=== PATIENT | male | born 1950 | race American Indian/Alaskan Native ===

== ENCOUNTER 2019-02-14 08:10 | Inpatient (IN) | payer MEDICARE, OTHER ==
[~2019-02-14] VITALS: Ht 165.1 cm; Wt 132.9 kg
[~2019-02-14 08:10] MED LIST: ALLO300 PO; AMLO5; AMLO5 PO; ASPI325; ASPI325 PO; Benicar40 MG; Bupropion Xl150 MG PO; CILO100 PO; FLUR100; GABA100 PO; GLIM4; GLIM4 PO; HALO.05TC; HUMIRA; HYDACE7.5 PO; HYDSUL200; HYDSUL200 PO; Humalog100 UNIT/1 SC; Humira20 MG/0.4 SC; Hydrocodone-Ap1 EA20 PO; IBUHYD; INSUGL100V; IRBE150 PO; LEVSOD125; LEVSOD75 PO; LISI5 PO; METF500 PO; METO100; METO100ER PO; METO50 PO; MIRAPEX; OLME20; OLME20 PO; OMEPRAZOLE MAGN20 MG PO; OSEL75CA PO; Oxycodone HCl20 M1 PO; ROPI.25 PO; ROSU10TA; ROSU10TA PO; SILD50TA PO; SPIR25 PO; SPIRONO/HCTZ; Synthroid112 MCG PO; TRAM50 PO; TRIAOIA; VITAMIN D350000 UNIT PO; nuvigil
[2019-02-14 08:36] LABS: BASOPHILS ABSOLUTE AUTO 0.06 K/mm3 (0.00-0.23); BASOPHILS PERCENT AUTO 1 % (0-2); EOSINOPHILS ABSOLUTE AUTO 0.52 K/mm3 (0.00-0.68); EOSINOPHILS PERCENT AUTO 5 % (0-6); Hematocrit 42.5 % (37.0-53.0); Hemoglobin 14.1 g/dL (13.5-17.5); IMMATURE GRAN PERCENT AUTO 1 % (0-1); LYMPHOCYTES ABSOLUTE AUTO 1.16 K/mm3 (0.84-5.20); LYMPHOCYTES PERCENT AUTO 12 % (21-46); MONOCYTES ABSOLUTE AUTO 0.65 K/mm3 (0.16-1.47); MONOCYTES PERCENT AUTO 7 % (4-13); Mean Corpuscular HGB 30.3 pg (26.0-34.0); Mean Corpuscular HGB Conc 33.2 g/dL (31.5-36.5); Mean Corpuscular Volume 91 fL (80-100); Mean Platelet Volume 9.2 fL (9.1-12.4); NEUTROPHILS ABSOLUTE AUTO 7.48 K/mm3 (1.96-9.15); NEUTROPHILS PERCENT AUTO 75 % (41-73); Platelet Count 298 K/mm3 (150-400); RDW Coefficient Variation 13.8 % (11.7-14.2); RDW Standard Deviation 46.5 fL (35.1-46.3); Red Blood Cell Count 4.65 M/mm3 (4.30-5.90); White Blood Cell Count 9.97 K/mm3 (4.00-11.30)
[2019-02-14 08:59] LABS: Alanine Aminotransfer (ALT/SGP 18 U/L (12-78); Albumin, Blood 3.2 g/dL (3.4-5.0); Albumin/Globulin Ratio 0.7 (0.8-1.8); Alk Phos 97 U/L (50-136); Anion Gap 10 mmol/L (6-16); Aspartate Aminotrans (AST/SGOT 6 U/L (12-37); Bilirubin, Total 0.4 mg/dL (0.1-1.0); Blood Urea Nitrogen 10 mg/dL (8-24); CO2, Blood 25 mmol/L (21-32); Calcium, Blood 8.6 mg/dL (8.5-10.1); Chloride, Blood 101 mmol/L (98-108); Creatinine, Blood 0.83 mg/dL (0.60-1.20); Globulin, Blood 4.4 g/dL (2.2-4.0); Glomerular Filtration Rate >60 (60-); Glucose, Blood 290 mg/dL (70-99); Potassium, Blood 3.3 mmol/L (3.5-5.5); Sodium, Blood 136 mmol/L (136-145); Total Protein, Blood 7.6 g/dL (6.4-8.2)
[2019-02-14] MEDS ORDERED: TRULICITY1.5 MG/0.5 SC (11:17)
[2019-02-14] MEDS ORDERED: LEVSOD150 PO (11:17)
[2019-02-14 12:44] LABS: Troponin I 0.04 ng/mL (0.000-0.040)
[2019-02-14 12:46] LABS: Thyroid Stimulating Hormone 2.52 uIU/mL (0.360-4.800)
--- NOTE | 2019-02-14 13:00 | NUR ---
PT RECEIVED FROM ER. ALERT AND ORIENTED X3. C/O 12/17 PAIN, DECLINED NEED FOR MEDS AT THIS TIME. LUNG SOUNDS EXPIRATORY WHEEZES THROUGHOUT, DYSPNEA AT REST AND WITH EXERTION. OXYGEN SATURATIONS 90% ON 3L O2, INCREASED TO 4L VIA NC, SATURATIONS 94%. ABDOMEN IS ROUND, STATES HISTORY OF CONSTIPATION, TENDER ON PALPATION, HYPOACTIVE BOWEL SOUNDS. SINUS TACHYCARDIA WITH PACs RATE 115 PER TELEMETRY.
[2019-02-14] MEDS ORDERED: DICLOFENAC SOD150 ML TOP (13:42)
[2019-02-14] MEDS ORDERED: MIRALAX119 GM PO (13:46)
[2019-02-14] MEDS ORDERED: ALBU2.5V5 NEB (13:56)
[2019-02-14] MEDS ORDERED: FLUT1DIS5 INH (13:56)
[2019-02-14 14:45] LABS: Adenovirus Not Detected (NOT DETECT); Coronavirus 229E Not Detected (NOT DETECT); Coronavirus HKU1 Not Detected (NOT DETECT); Coronavirus NL63 Not Detected (NOT DETECT); Coronavirus OC43 Detected (NOT DETECT); Human Metapneumovirus Detected (NOT DETECT)
[2019-02-14 14:46] LABS: Bordetella pertussis Not Detected (NOT DETECT); Chlamydophila pneumoniae Not Detected (NOT DETECT); Human Rhinovirus/Enterovirus Not Detected (NOT DETECT); Influenza A Not Detected (NOT DETECT); Influenza A/2009-H1 Not Detected (NOT DETECT); Influenza A/H1 Not Detected (NOT DETECT); Influenza A/H3 Not Detected (NOT DETECT); Influenza B Not Detected (NOT DETECT); Mycoplasma pneumoniae Not Detected (NOT DETECT); Parainfluenza Virus 1 Not Detected (NOT DETECT); Parainfluenza Virus 2 Not Detected (NOT DETECT); Parainfluenza Virus 3 Not Detected (NOT DETECT); Parainfluenza Virus 4 Not Detected (NOT DETECT); Respiratory Syncytial Virus Not Detected (NOT DETECT)
--- NOTE | 2019-02-14 16:00 | NUR ---
1400 PT'S BLOOD SUGAR 443, DOCTOR NOTIFIED, ORDERS RECEIVED FOR MEDIUM SLIDING SCALE HUMALOG FLEXPEN. 12 UNITS GIVEN. 1545 BLOOD SUGAR RECHECKED, RESULT 422. ADDITIONAL 10 UNITS HUMALOG GIVEN PER ORDERS. 1650 BLOOD SUGAR CHECKED BEFORE DINNER, RESULT 461. DR. BAILEY NOTIFIED, NEW ORDERS RECEIVED. PT GIVEN DINNER TIME INSULIN WITH AN ADDITIONAL 10 UNITS OF HUMALOG (TOTAL OF 22 UNITS GIVEN). WILL RECHECK BLOOD SUGAR IN 1/5 TO 2 HOURS.
[2019-02-14] MEDS ORDERED: Lantus100 UNIT/1 SC (16:36)
--- NOTE | 2019-02-14 17:00 | NUR ---
PT COMPLAINING OF 10/10 PAIN BETWEEN HIS SHOULDER BLADES. STATES IT IS "JUST LIKE THE TIME I HAD TO GET STENTS IN MY HEART". EKG COMPLETED. 2 NORCO GIVEN FOR PAIN, WHICH HELPED THE PAIN SIGNIFICANTLY. PT DYSPNEIC, SITTING AT SIDE OF BED. STATES SITTING UP FEELS BETTER. AT BEDSIDE. WILL CONTINUE TO MONITOR.
--- NOTE | 2019-02-14 18:45 | NUR ---
SHIFT SUMMARY PT RESTING IN BED / SITTING AT BEDSIDE THIS AFTERNOON. ALERT AND ORIENTED X3. LUNG SOUNDS EXPIRATORY WHEEZES AT TIMES AND DIMINISHED AT TIMES. DYSPNEA ON EXERTION AND AT REST, ON 3-4L OXYGEN VIA NC, SATURATIONS 93-94%. ABDOMEN IS DISTENDED AND TENDER ON PALPATION, HYPOACTIVE BOWEL SOUNDS. STATES HAVING PROBLEMS WITH CONSTIPATION THE LAST FEW WEEKS. PT HAD AN EPISODE OF PAIN BETWEEN THE SHOULDER BLADES WITH DYSPNEA AND SOME ANXIETY. STATES PAIN IS THE SAME WHEN HE HAD HIS HEART ATTACK. EKG COMPLETED. PO NORCO GIVEN FOR PAIN, WHICH HELPED DECREASE HIS PAIN. SINUS TACHYCARDIA WITH PACs RATE 115 ON TELEMETRY. AT BEDSIDE. WILL CONTINUE TO MONITOR.
--- NOTE | 2019-02-14 19:15 | NUR ---
ASSUMED CARE PT. ALERT AND ORIENTED. SITTING UP IN BEDSIDE CHAIR. PT. PALE IN COLOR AND REPORTS PAIN IN BETWEEN SHOULDER BLADES AND TIGHTNESS ACROSS EPIGASTRIC AREA. PT. DISPLAYS SOB WITH MOVEMENT AND SPEAKING IN SHORT SENTENCES. PT. CURRENTLY ON 4LNC. PT REPORTS PAIN AND SOB HAS BEEN ONGING FOR APPROX 3 DAYS. PT ABD SOFT, TENDER TO PALPATION AND REPORTS CONSTIPATION HOWEVER IS PASSING FLATUS. PT. HAS URINAL AT BEDSIDE, INSTRUCTED OF THE NEED FOR URINE SAMPLE. PT. REMAINS AT BEDSIDE AT THIS TIME. LAB IN TO DRAW REPEAT LACTIC. PT. CURRENTLY HAS NS FLUID BOLUS INFUSING.
--- NOTE | 2019-02-14 20:07 | NUR ---
CALL TO LUIZ BOX SEALING MACHINE OPERATOR REGARDING INCREASDED LACTIC ACID RESULTS WELL CONSISTANTLY HIGH BG. UPDATE ON PT. PAIN TO UPPER BACK, KPAD PLACED AND PAIN MEDS GIVEN PER DR. PIPER. PT. CONTINUES ON 4LNC. PT. REPORTS "TIGHTNESS" TO EPIGASTRIC AREA WITH "ACHE" BETWEEN SHOULDER BLADES. PT REPORTS THIS PAIN IS NOT WORSE WITH ACTIVITY OR DEEP BREATHE. PT. REMAINS AT BEDSIDE, AWAITING ORDERS.
[2019-02-14 21:02] LABS: Anion Gap 16 mmol/L (6-16); Blood Urea Nitrogen 13 mg/dL (8-24); Bun/Creatinine Ratio 14.1 (12.0-20.0); CO2, Blood 15 mmol/L (21-32); Calcium, Blood 7.9 mg/dL (8.5-10.1); Chloride, Blood 106 mmol/L (98-108); Creatinine, Blood 0.92 mg/dL (0.60-1.20); Glomerular Filtration Rate >60 (60-); Glucose, Blood 456 mg/dL (70-99); Magnesium, Blood 1.8 mg/dL (1.6-2.4); Potassium, Blood 3.5 mmol/L (3.5-5.5); Sodium, Blood 137 mmol/L (136-145)
[2019-02-14 21:16] LABS: PCO2 Arterial 27.5 mmHg (35-45); PO2 Arterial 79.1 mmHg (80-100); pH Blood Arterial 7.29 (7.35-7.45)
--- NOTE | 2019-02-14 21:31 | NUR ---
ROUNDED ON PT. PT. REMAINS UP IN BEDSIDE CHAIR, REPORTS BACK PAIN HAS DECREASED TO ABOUT A 4 NOW. PT. CONTINUES TO APPEAR SOB WITH ANY MOVEMENT IN CHAIR AND WITH CONVERSATION. REMAINS ON 4LNC. CALL TO LUIZ ROSE REGARDING ABG RESULTS. PLANS FOR RECHCK OF BG AND 40MEQ POTASSIUM TO BE GIVEN AND WILL BE UP TO SEE PT. CALL ERMIAS VALENCIA IN REACH, PT AT BEDSIDE.
[2019-02-14 22:37] LABS: Source, Urine Clean Catch
[2019-02-14 22:41] LABS: Bilirubin, Urine Neg (Neg); Blood, Urine 3+ (Neg); Glucose Qualitative, Urine 4+ (Neg); Ketones, Urine 2+ (Neg); Leukocyte Esterase, Urine Neg (Neg); Nitrite, Urine Neg (Neg); Protein, Urine 3+ (Neg); Urobilinogen, Urine NORM (Normal)
[2019-02-14 22:53] LABS: U Amphetamine Screen Not Detected; U Barbituate Screen Not Detected; U Benzodiazapine Screen Not Detected; U Buprenorphine Screen Not Detected; U Cannabinoids Screen Not Detected; U Cocaine Screen Not Detected; U Methadone Screen Not Detected; U Methamphetamine Screen Not Detected; U Opiates Screen DETECTED; U Oxycodone Screen DETECTED; U Phencyclidine Screen Not Detected; U Propoxyphene Screen Not Detected
[2019-02-14 23:01] LABS: Appearance, Urine Clear (Clear); Color, Urine Yellow (P-Yellow)
[2019-02-14 23:03] LABS: Bacteria Rare /hpf; Red Blood Cells, Urine 0-2 /hpf (0-2); Squamous Epithelial Cells Rare /hpf (Few); White Blood Cells, Urine Not Seen /hpf (0-5)
--- NOTE | 2019-02-14 23:06 | NUR ---
PROVIDER AT BEDSIDE ADDITIONAL LABS ORDERED. 10 UNITS IV INSULIN TO BE ADMIN. VSS.
--- NOTE | 2019-02-15 00:20 | NUR ---
CALL TO DR. TOVAR REGARDING INCREASE IN TROP LMOM. PT REPORTS PAIN LEVEL OF 1 AT THIS TIME. NO ACUTE CHANGES. VSS.
--- NOTE | 2019-02-15 01:05 | NUR ---
SPOKE TO DR. TOVAR PLAVIX ORDERED ALONG WITH HEPARIN AND CARDIO CONSULT. ADDITIONAL IV ACCESS OBTAINED AND PTT DRAWN
[2019-02-15 01:25] LABS: International Normalized Ratio 1.03; Prothrombin Time Results 10.9 Sec (9.7-11.5)
[2019-02-15 05:01] LABS: BASOPHILS ABSOLUTE AUTO 0.04 K/mm3 (0.00-0.23); BASOPHILS PERCENT AUTO 0 % (0-2); EOSINOPHILS PERCENT AUTO 0 % (0-6); Hematocrit 36.9 % (37.0-53.0); Hemoglobin 12.2 g/dL (13.5-17.5); IMMATURE GRAN ABSOLUTE AUTO 0.24 K/mm3 (0.00-0.10); IMMATURE GRAN PERCENT AUTO 2 % (0-1); LYMPHOCYTES ABSOLUTE AUTO 0.69 K/mm3 (0.84-5.20); LYMPHOCYTES PERCENT AUTO 6 % (21-46); MONOCYTES ABSOLUTE AUTO 0.52 K/mm3 (0.16-1.47); MONOCYTES PERCENT AUTO 5 % (4-13); Mean Corpuscular HGB 30.7 pg (26.0-34.0); Mean Corpuscular HGB Conc 33.1 g/dL (31.5-36.5); Mean Corpuscular Volume 93 fL (80-100); Mean Platelet Volume 9.4 fL (9.1-12.4); NEUTROPHILS ABSOLUTE AUTO 10.09 K/mm3 (1.96-9.15); NEUTROPHILS PERCENT AUTO 87 % (41-73); Platelet Count 298 K/mm3 (150-400); RDW Standard Deviation 47.8 fL (35.1-46.3); Red Blood Cell Count 3.97 M/mm3 (4.30-5.90); White Blood Cell Count 11.58 K/mm3 (4.00-11.30)
[2019-02-15 05:30] LABS: Alanine Aminotransfer (ALT/SGP 18 U/L (12-78); Albumin, Blood 2.8 g/dL (3.4-5.0); Albumin/Globulin Ratio 0.7 (0.8-1.8); Alk Phos 80 U/L (50-136); Anion Gap 11 mmol/L (6-16); Aspartate Aminotrans (AST/SGOT 20 U/L (12-37); Bilirubin, Total 0.3 mg/dL (0.1-1.0); Blood Urea Nitrogen 12 mg/dL (8-24); Bun/Creatinine Ratio 14.8 (12.0-20.0); CO2, Blood 18 mmol/L (21-32); Calcium, Blood 7.6 mg/dL (8.5-10.1); Chloride, Blood 111 mmol/L (98-108); Creatinine, Blood 0.81 mg/dL (0.60-1.20); Glomerular Filtration Rate >60 (60-); Glucose, Blood 345 mg/dL (70-99); Potassium, Blood 3.8 mmol/L (3.5-5.5); Sodium, Blood 140 mmol/L (136-145); Total Protein, Blood 6.8 g/dL (6.4-8.2)
--- NOTE | 2019-02-15 05:32 | NUR ---
SHIFT SUMMARY PT RESTING COMFORTABLY IN BED AT THIS TIME. CURRENTLY RATES PAIN 1/10, THIS IS MUCH IMPROVED FROM EARLIER. PT. CONTIUES TO BE SOB WITH ANY ACTIVITY AT ALL. PT ON 4LNC WHEN AWAKE AND WORE HOME CPAP T/O NIGHT WHEN SLEEPING. PT. CURRENTLY ON NS AT 150ML/HR AND HEPARIN GTT INFUSING AT 13U/KG/HR DOSING PER PHARMACY. NADN AT THIS TIME. CARDIO CONSULT CALLED IN LAST NIGHT TO ANSWERING SERVICE. REPORT TO ONCOMING RN.
--- NOTE | 2019-02-15 19:53 | NUR ---
SHIFT SUMMARY PT RESTING IN BED / RECLINER THROUGHOUT THE DAY. VSS. ALERT AND ORIENTED X3. MEDICATED WITH PRN PAIN MEDS FOR JOINT PAIN R/T HIS RA. LUNG SOUNDS DIMINISHED THROUGHOUT, SINUS TACHYCARDIA WITH PACs RATE 100-110s ON TELE. C/O NUMBNESS TO BILATERAL FEET. HYPOACTIVE BOWEL SOUNDS, MODERATE DISTENTION NOTED TO ABDOMEN, ABDOMEN IS SOFTER TODAY THAN YESTERDAY. WILL CONTINUE TO MONITOR.
--- NOTE | 2019-02-16 03:30 | NUR ---
CARDIAC RHYTHMS 0140- PT WITH MULTIPLE RUNS OF SVT EARLIER THIS EVENING LASTING FOR LESS THAN TWO MINUTES, WITH THE EXCEPTION OF ONE EPISODE THAT LASTED SIX MINUTES. CALL PLACED TO PHYSICIAN AND MESSAGE LEFT WITH NO REPLY PRIOR TO DECREASE IN HEART RATE. PT DENIES CHEST PAIN WITH EACH EPISODE. 0308- PT CONVERTED TO ATRIAL FIBRILLATION WITH RVR @ 0308 THIS AM. CALL PLACED TO DR TOVAR AND ORDERS RECEIVED FOR CARDIZEM IVP 10 MG.
[2019-02-16 03:52] LABS: BASOPHILS ABSOLUTE AUTO 0.04 K/mm3 (0.00-0.23); BASOPHILS PERCENT AUTO 0 % (0-2); EOSINOPHILS ABSOLUTE AUTO 0.01 K/mm3 (0.00-0.68); EOSINOPHILS PERCENT AUTO 0 % (0-6); Hematocrit 35.4 % (37.0-53.0); Hemoglobin 11.4 g/dL (13.5-17.5); IMMATURE GRAN ABSOLUTE AUTO 0.32 K/mm3 (0.00-0.10); IMMATURE GRAN PERCENT AUTO 2 % (0-1); LYMPHOCYTES ABSOLUTE AUTO 1.18 K/mm3 (0.84-5.20); LYMPHOCYTES PERCENT AUTO 9 % (21-46); MONOCYTES ABSOLUTE AUTO 0.78 K/mm3 (0.16-1.47); MONOCYTES PERCENT AUTO 6 % (4-13); Mean Corpuscular HGB 30.6 pg (26.0-34.0); Mean Corpuscular HGB Conc 32.2 g/dL (31.5-36.5); Mean Corpuscular Volume 95 fL (80-100); Mean Platelet Volume 9.5 fL (9.1-12.4); NEUTROPHILS ABSOLUTE AUTO 11.25 K/mm3 (1.96-9.15); NEUTROPHILS PERCENT AUTO 83 % (41-73); Platelet Count 301 K/mm3 (150-400); RDW Coefficient Variation 14.6 % (11.7-14.2); RDW Standard Deviation 51.4 fL (35.1-46.3); Red Blood Cell Count 3.72 M/mm3 (4.30-5.90); White Blood Cell Count 13.58 K/mm3 (4.00-11.30)
[2019-02-16 04:16] LABS: Anion Gap 9 mmol/L (6-16); Blood Urea Nitrogen 14 mg/dL (8-24); Bun/Creatinine Ratio 17.8 (12.0-20.0); CO2, Blood 19 mmol/L (21-32); Calcium, Blood 7.3 mg/dL (8.5-10.1); Chloride, Blood 114 mmol/L (98-108); Creatinine, Blood 0.79 mg/dL (0.60-1.20); Glomerular Filtration Rate >60 (60-); Glucose, Blood 133 mg/dL (70-99); Potassium, Blood 3.7 mmol/L (3.5-5.5); Sodium, Blood 142 mmol/L (136-145)
--- NOTE | 2019-02-16 05:30 | NUR ---
PROVIDER CONTACTED 2525- PT REMAINS IN A-FIB RVR AFTER IVP OF CARDIZEM. CALL PLACED TO DR TOVAR @ APPROXIMATELY 8595 AND ORDERS RECEIVED FOR CARDIZEM DRIP. 0520- CARDIZEM DRIP STARTED @ 10 MG/HR WITH A RATE AVERAGING IN THE 140-150'S. WILL CONTINUE TO MONITOR.
--- NOTE | 2019-02-16 06:25 | NUR ---
SHIFT SUMMARY PT HAS REMAINED AOX4 THROUGHOUT SHIFT. PLEASANT AND COOPERATIVE WITH CARE. CARDIAC RHYTHM CONTINUES TO BE A-FIB WITH SOME SINUS BEATS WITH A RATE IN THE 110-120'S. CARDIZEM CONTINUES TO INFUSE @ 10 MG/HR AT THIS TIME- WILL TITRATE PER PROTOCOL. PT CONTINUES TO DENY CHEST PAIN, BUT DOES REPORT SOME DYSPNEA WITH ELEVATED HEART RATE. PT HAS RESTED WELL THROUGHOUT MUCH OF THE NIGHT WITH HOME CPAP IN PLACE. O2 SATS HAVE REMAINED >90% ON 2L VIA NASAL CANNULA. O2 SATS ARE >90% ON RA, BUT PT REQUESTING NASAL CANNULA FOR COMFORT. PT CONTINUES TO AMBULATE WITH STANDBY ASSIST TO CHAIR AND RESTROOM. FAMILY HAS REMAINED AT BEDSIDE THROUGHOUT THE NIGHT. NO OTHER CHANGES NOTED FROM INITIAL ASSESSMENT. WILL CONTINUE TO MONITOR AND REPORT TO ONCOMING SHIFT RN. BED IN LOW POSITION, CALL LIGHT IN REACH.
--- NOTE | 2019-02-16 09:00 | NUR ---
902 CALLED TO ROOM. PT SITTING UP IN RECLINER. PT C/O SHORTNESS OF BREATH, STATES "CAN'T CATCH MY BREATH." HEART RATE ELEVATED TO 160s-180s, DR. BAILEY NOTIFIED, ORDER RECEIVED. 910 BP 155/85. IV METOPROLOL GIVEN. 915 BP 102/73. HEART RATE DOWN TO 130s PER PHARMACEUTICAL PLANT OPERATOR. PT BREATHING EASIER, RESTING IN RECLINER. AM PO MEDS GIVEN.
--- NOTE | 2019-02-16 10:17 | NUR ---
In response to RN request, I visited patient and patient's Meredith. According to RN, Meredith was in the hallway crying. When I entered patient's room Patient is sitting on a chair with Meredith lying in the bed. Patient and Meredith give me an update on patient's condition and Meredith admits to being very tearful about seeing her struggling. We talk about patient's ability to overcome past health issues and the deep need for patient to take better care of himself. Meredith also shares about their belief system and the strength she gathers from to [place] of [place]. I listen empathically, encourage patient self-care, provide emotional support and provide a calming presence. Patient and Meredith respond well and show signs of increased peace.
--- NOTE | 2019-02-16 12:15 | NUR ---
1130 DR. SCHULTZ TO SEE PT. ORDERS RECEIVED. CARDIZEM GTT STOPPED PER ORDERS. WILL GIVE PO CARDIZEM PER ORDERS. 1215 PT's HEART RATE ELEVATED TO 165. DR. SCHULTZ NOTIFIED. OK TO GIVE PO CARDIZEM NOW. PT RESTING IN BED WITH CPAP ON. WILL CONTINUE TO MONITOR.
--- NOTE | 2019-02-16 12:18 | NUR ---
MD SCUHLTZ NOTIFIED MD SCHULTZ NOTIFIED THAT PATIENTS HEART RATE WAS TRENDING 160'S UP TO 170'S - PROVIDER STATED TO START THE PO CARDIEZEM NOW AND THAT HE WOULD CONTINUE TO MONITOR THE PATIENTS HEART RATE. HE STATED THAT HE DID NOT NEED TO BE NOTIFIED OF THE RAPID HEART RATE UNLESS THE PATIENTS BLOOD PRESSURE BECOMES UNSTABLE OR THE PATIENT BECOMES SYMPTOMATIC. PRIMARY RN NOTIFIED.
--- NOTE | 2019-02-16 15:10 | NUR ---
Echocardiogram attempted. Patient was unable to tolerate exam due to breathing difficulties and the decision was made to repeat the exam tomorrow 02/17/19 per the patient and RN.
--- NOTE | 2019-02-16 15:15 | NUR ---
PT UNABLE TO LAY DOWN FOR ECHOCARDIOGRAM TO BE COMPLETED. WILL TRY TOMORROW.
--- NOTE | 2019-02-16 16:38 | NUR ---
SHIFT SUMMARY PT RESTING IN BED AND RECLINER THROUGHOUT THE DAY. VSS. ALERT AND ORIENTED X3. LUNG SOUNDS EXPIRATORY WHEEZES THROUGHOUT, PT HAVING SIGNIFICANT DYSPNEA THROUGHOUT THE DAY. ON OXYGEN 3L VIA NC, SATURATIONS 90-93%. AFIB RATE 100-205 ON TELEMETRY. IV LOPRESSOR GIVEN. DR. SCHULTZ TO SEE PT, NEW ORDERS. BETA BLOCKERS DC'D. CARDIZEM GTT DC'D PER DR. SCHULTZ, PO CARDIZEM STARTED. PT RESTING IN BED WITH CPAP ON THIS AFTERNOON, HEART RATE 90s-120s. ABDOMEN ROUND WITH MODERATE DISTENTION, SOFT TO PALPATION, HYPOACTIVE BOWEL SOUNDS. TRACE EDEMA TO BLE, C/O CHRONIC NUMBNESS / TINGLING TO BLE. FAMILY AT BEDSIDE THROUGHOUT THE DAY. WILL CONTINUE TO MONITOR.
[2019-02-17 04:12] LABS: BASOPHILS ABSOLUTE AUTO 0.02 K/mm3 (0.00-0.23); BASOPHILS PERCENT AUTO 0 % (0-2); EOSINOPHILS ABSOLUTE AUTO 0.01 K/mm3 (0.00-0.68); EOSINOPHILS PERCENT AUTO 0 % (0-6); Hematocrit 33.3 % (37.0-53.0); Hemoglobin 10.8 g/dL (13.5-17.5); IMMATURE GRAN ABSOLUTE AUTO 0.42 K/mm3 (0.00-0.10); IMMATURE GRAN PERCENT AUTO 4 % (0-1); LYMPHOCYTES ABSOLUTE AUTO 1.48 K/mm3 (0.84-5.20); LYMPHOCYTES PERCENT AUTO 15 % (21-46); MONOCYTES ABSOLUTE AUTO 0.61 K/mm3 (0.16-1.47); MONOCYTES PERCENT AUTO 6 % (4-13); Mean Corpuscular HGB 30.1 pg (26.0-34.0); Mean Corpuscular HGB Conc 32.4 g/dL (31.5-36.5); Mean Corpuscular Volume 93 fL (80-100); Mean Platelet Volume 9.6 fL (9.1-12.4); NEUTROPHILS ABSOLUTE AUTO 7.62 K/mm3 (1.96-9.15); NEUTROPHILS PERCENT AUTO 75 % (41-73); NRBC ABSOLUTE 0.03 K/mm3 (0.00-0.02); NRBC Auto 0.3 /100 WBC (0.0-0.2); Platelet Count 282 K/mm3 (150-400); RDW Coefficient Variation 14.6 % (11.7-14.2); RDW Standard Deviation 49.9 fL (35.1-46.3); Red Blood Cell Count 3.59 M/mm3 (4.30-5.90); White Blood Cell Count 10.16 K/mm3 (4.00-11.30)
[2019-02-17 04:35] LABS: Anion Gap 7 mmol/L (6-16); Blood Urea Nitrogen 14 mg/dL (8-24); Bun/Creatinine Ratio 17.1 (12.0-20.0); CO2, Blood 21 mmol/L (21-32); Calcium, Blood 7.2 mg/dL (8.5-10.1); Chloride, Blood 110 mmol/L (98-108); Creatinine, Blood 0.82 mg/dL (0.60-1.20); Glomerular Filtration Rate >60 (60-); Glucose, Blood 194 mg/dL (70-99); Potassium, Blood 3.9 mmol/L (3.5-5.5); Sodium, Blood 138 mmol/L (136-145)
--- NOTE | 2019-02-17 06:02 | NUR ---
SHIFT SUMMARY PT HAS REMAINED AOX4 THROUGHOUT SHIFT. VSS. PLEASANT AND COOPERATIVE WITH CARE. PT HAS RESTED WELL THROUGHOUT MUCH OF THE SHIFT WITH HOME CPAP IN PLACE WITH 2.5L O2 BLEED IN. PT WAKES EASILY FOR CARE AND CONTINUES TO USE URINAL AT BEDSIDE INDEPENDENTLY. ONE EPISODE OF ANXIETY LAST NIGHT WITH SOME SLIGHT BLEEDING FROM NOSE WHEN BLOWN, BLEEDING STOPPED VERY QUICKLY. HUMIDIFICATION ADDED TO NASAL CANNULA TO PREVENT SINUS DRYING. CARDIAC RHYTHM HAS REMAINED IN NORMAL SINUS WITH PACs WITH RATE IN THE 80-90'S. PT DENIES CHEST PAIN. O2 SATS HAVE REMAINED >90% ON 2.5L VIA NASAL CANNULA OR ON HOME CPAP WITH 2.5L BLEED-IN. PT CONTINUES TO HAVE LOOSE SOUNDING COUGH WITH MINIMAL SPUTUM PRODUCTION. PT REQUIRES CONTINUED EDUCATION AND REMINDERS OF FLUID RESTRICTION AND REASONING FOR IT. LUNG SOUNDS CONTINUE TO HAVE EXPIRATORY WHEEZES THROUGHOUT WITH DIMINISHED BASES. NO OTHER CHANGES NOTED FROM INITIAL ASSESSMENT. WILL CONTINUE TO MONITOR AND REPORT TO ONCOMING JOANIE RN. BED IN LOW POSITION, CALL LIGHT IN REACH.
--- NOTE | 2019-02-17 09:49 | NUR ---
Echocardiogram performed.
--- NOTE | 2019-02-17 10:35 | NUR ---
AM NOTE... ASSUMED CARE OF PT APROX 0700, PT WAS ADMITTED FOR PNA, PT IS CURRENTLY ON 2-3L NC AND BECOMES DYSPNIC WITH ACTIVITY. DURING ASSESSMENT THIS PT HR INCREASED TO THE 160'S, PER CLOCK REPAIR TECHNICIAN IT LOOKED LIKE AFLUTTER/AFIB, WITHIN 2 MINUTES THE PT'S HR TRENDED BACK DOWN AND PT RETURNED TO NSR W/PACS. TELE INTACT, NSR W/PACS IN THE 80'S, PT'S BP 136/67, PT HAS NONPITTING EDEMA TO HIS BLLE. L/S COARSE AND WHEEZES T/O DIM IN THE BASES ON 2-3L NC, RR 21 EVEN AND UNLABORED AT THIS TIME. BT PRESENT AND HYPERACTIVE, ABD IS SOFT AND NONTENDER. IS IN THE ROOM, UPDATE ON PT PLAN OF CARE WAS GIVEN, QUESTIONS WERE ANSWERED TO THEIR SASTISFACTION. CALL LIGHT IN REACH, WILL CONITNUE TO MONITOR.
--- NOTE | 2019-02-17 11:40 | NUR ---
Spiritual care visit conducted. Patient tells me that the "stuff" in his lungs is breaking up and that he is feeling better today. Patient stated that his diabetes has been a constant frustration and causes him to watch every bite he takes. I normalize patient experience, encourage self care and provide emotiona supprt. Patient and spouse, Meredith thank me for the visit.
--- NOTE | 2019-02-17 18:58 | NUR ---
SHIFT SUMMARY. NO ACUTE CHANGES NOTED THIS SHIFT. PT HAS BEEN UP WALKING IN THE ROOM AND TO THE BATHROOM. PT'S VS HAVE BEEN STABLE. PT HAS BEEN COMPLIANTE WITH HIS FLUID RESTRICTION TODAY. THE EDEMA IN PT'S LEGS HAS INCREASED FROM THE START OF THIS SHIFT, PT C/O OF HIS HANDS AND LEGS "FEELING LIKE I AM GOING TO POP." PT TAKES ALDACTONE AT HOME AND IS CURRENTLY NOT TAKING IT. CALL LIGHT IN REACH, BED IS LOCKED AND LOW WILL CONTINUE TO MONITOR UNTIL REPORT IS GIVEN TO JUANY CLIFFORD.
--- NOTE | 2019-02-17 19:42 | NUR ---
PROVIDER CONTACTED PT REQUESTING HOME DOSE OF ALDACTONE. LUIZ HAHN CONTACTED AND ORDERS RECEIVED TO RESTART HOME DOSE IF POTASSIUM IS NOT ELEVATED. POTASSIUM WNL, ORDERS INPUT.
[2019-02-18 03:50] LABS: BASOPHILS ABSOLUTE AUTO 0.05 K/mm3 (0.00-0.23); BASOPHILS PERCENT AUTO 1 % (0-2); EOSINOPHILS ABSOLUTE AUTO 0.01 K/mm3 (0.00-0.68); EOSINOPHILS PERCENT AUTO 0 % (0-6); Hematocrit 32.1 % (37.0-53.0); Hemoglobin 10.5 g/dL (13.5-17.5); IMMATURE GRAN ABSOLUTE AUTO 0.62 K/mm3 (0.00-0.10); IMMATURE GRAN PERCENT AUTO 6 % (0-1); LYMPHOCYTES ABSOLUTE AUTO 1.81 K/mm3 (0.84-5.20); LYMPHOCYTES PERCENT AUTO 16 % (21-46); MONOCYTES ABSOLUTE AUTO 0.61 K/mm3 (0.16-1.47); MONOCYTES PERCENT AUTO 6 % (4-13); Mean Corpuscular HGB 30.9 pg (26.0-34.0); Mean Corpuscular HGB Conc 32.7 g/dL (31.5-36.5); Mean Corpuscular Volume 94 fL (80-100); Mean Platelet Volume 9.5 fL (9.1-12.4); NEUTROPHILS ABSOLUTE AUTO 7.96 K/mm3 (1.96-9.15); NEUTROPHILS PERCENT AUTO 72 % (41-73); NRBC ABSOLUTE 0.07 K/mm3 (0.00-0.02); NRBC Auto 0.6 /100 WBC (0.0-0.2); Platelet Count 267 K/mm3 (150-400); RDW Coefficient Variation 14.7 % (11.7-14.2); White Blood Cell Count 11.06 K/mm3 (4.00-11.30)
[2019-02-18 04:14] LABS: Anion Gap 7 mmol/L (6-16); Blood Urea Nitrogen 15 mg/dL (8-24); Bun/Creatinine Ratio 17.3 (12.0-20.0); CO2, Blood 22 mmol/L (21-32); Calcium, Blood 7.5 mg/dL (8.5-10.1); Chloride, Blood 108 mmol/L (98-108); Creatinine, Blood 0.87 mg/dL (0.60-1.20); Glomerular Filtration Rate >60 (60-); Glucose, Blood 205 mg/dL (70-99); Sodium, Blood 137 mmol/L (136-145)
[2019-02-18 04:24] LABS: BAND PERCENT MAN 1 % (0-8); BASOPHILS PERCENT MAN 0 % (0-2); EOSINOPHILS PERCENT MAN 0 % (0-6); LYMPHOCYTES ABSOLUTE MAN 2.21 K/mm3 (0.84-5.20); LYMPHOCYTES PERCENT MAN 20 % (21-46); METAMYELOCYTE ABSOLUTE MAN 0.11 K/mm3 (0.00-0.00); METAMYELOCYTE PERCENT MAN 1 % (0-0); MONOCYTES ABSOLUTE MAN 0.33 K/mm3 (0.16-1.47); MONOCYTES PERCENT MAN 3 % (4-13); MYELOCYTE ABSOLUTE MAN 0.11 K/mm3 (0.00-0.00); MYELOCYTE PERCENT MAN 1 % (0-0); NEUTROPHILS ABSOLUTE MAN 8.29 K/mm3 (1.96-9.15); SEG NEUTROPHILS PERCENT MAN 74 % (41-73); TOTAL CELLS COUNTED 100
[2019-02-18 04:34] LABS: Troponin I 0.671 ng/mL (0.000-0.040)
--- NOTE | 2019-02-18 06:11 | NUR ---
SHIFT SUMMARY PT HAS REMAINED AOX4 THROUGHOUT SHIFT. VSS. PLEASANT AND COOPERATIVE WITH CARE. PT CONTINUES TO AMBULATE INDEPENDENTLY FROM BED TO CHAIR. PT REPORTS THAT HE HAS BEEN DOING EXERCISES IN ROOM AND WORKING ON STRENGTH. PT CONTINUES TO REPORT DYSPNEA ON EXERTION, SATS HAVE REMAINED STABLE. O2 SATS HAVE REMAINED >90% ON 2L VIA NASAL CANNULA OR ON HOME CPAP THROUGHOUT SHIFT. PT WITH ONE EPISODE OF ANXIETY LAST NIGHT AFTER AMBULATING AND FEELING SHORT OF BREATH. PT ENCOURAGED TO USE RELAXATION AND BREATHING TECHNIQUES TO GET BREATHING UNDER CONTROL- PT REPORTS SOME SUCCESS WITH PURSED LIP BREATHING. REPEAT XRAY THIS AM, PT TOELRATED WELL. HAS RESTED WELL THROUGHOUT MUCH OF NIGHT WITH FAMILY AT BEDSIDE. NO OTHER CHANGES FROM INITIAL ASSESSMENT. WILL CONTINUE TO MONITOR AND REPORT TO ONCOMING SHIFT RN. BED IN LOW POSITION, CALL LIGHT IN REACH.
--- NOTE | 2019-02-18 16:03 | NUR ---
Patient is sitting on a chair with multiple family members present. I again encouaged self care as patient stated that much of what is happening with him medically could have been avoided. I also talked with patient about not allowing shame and negitivity slip in to his headspace either. I listened empathically, provided companionship and reinforced helpful attitudes. Patient and family voiced appreciation for the visit.
--- NOTE | 2019-02-18 18:49 | NUR ---
SHIFT SUMMARY PT RESTING IN RECLINER THROUGHOUT THE DAY. VSS. ALERT AND ORIENTED X3. LUNG SOUNDS COARSE THROUGHOUT, SINUS RHYTHM TO SINUS TACHYCARDIA WITH PACs AND PVCs RATE 90s-100s. TRACE EDEMA TO BLE. CHRONIC NUMBNESS AND TINGLING TO BLE. PT AMBULATING TO BATHROOM AND AROUND ROOM WITH STANDBY ASSIST. AT BEDSIDE THE MAJORITY OF THE DAY. WILL CONTINUE TO MONITOR.
--- NOTE | 2019-02-18 20:00 | NUR ---
ASSUMED CARE OF PT FROM SKYLAR CLIFFORD. VSS STABLE. LUNGS COARSE T/O. 2L NC, SPO2 >90%. 1999 VS TAKEN. REPORT GIVEN TO [facility] F[facility] NURSE. PT TRANSPORTED TO [facility] FLOOR @2009 BY [place]. ALL BELONGINGS / MEDICATIONS SENT WITH PATIENT AND .
[2019-02-19 04:54] LABS: Hematocrit 33.2 % (37.0-53.0); Hemoglobin 10.8 g/dL (13.5-17.5); Mean Corpuscular HGB 30.3 pg (26.0-34.0); Mean Corpuscular HGB Conc 32.5 g/dL (31.5-36.5); Mean Corpuscular Volume 93 fL (80-100); Mean Platelet Volume 9.5 fL (9.1-12.4); NRBC ABSOLUTE 0.13 K/mm3 (0.00-0.02); Platelet Count 292 K/mm3 (150-400); RDW Coefficient Variation 14.7 % (11.7-14.2); RDW Standard Deviation 50.1 fL (35.1-46.3); Red Blood Cell Count 3.57 M/mm3 (4.30-5.90); White Blood Cell Count 12.42 K/mm3 (4.00-11.30)
--- NOTE | 2019-02-19 05:24 | NUR ---
SHIFT SUMMARY PT TRANSFERRED FROM PCU. PT ALERT AND ORIENTED, GETS UP PER SELF TO BATHROOM. PT AT BEDSIDE. OXYGEN ON PER NC AT 2L UPON ARRIVAL. PT USES CPAP AT NIGHT WITH OXYGEN BLEED IN. ON FLUID RESTRICTION. PT DENIES ANY C/O'S. TELE ON AND SHOWS NSR WITH PAC'S. NO ACUTE EVENTS OVERNIGHT, WILL CONTINUE TO MONITOR.
[2019-02-19 05:25] LABS: Alanine Aminotransfer (ALT/SGP 24 U/L (12-78); Albumin, Blood 2.8 g/dL (3.4-5.0); Albumin/Globulin Ratio 0.8 (0.8-1.8); Alk Phos 70 U/L (50-136); Anion Gap 7 mmol/L (6-16); Aspartate Aminotrans (AST/SGOT 15 U/L (12-37); Bilirubin, Total 0.3 mg/dL (0.1-1.0); Blood Urea Nitrogen 16 mg/dL (8-24); Bun/Creatinine Ratio 17.2 (12.0-20.0); CO2, Blood 23 mmol/L (21-32); Calcium, Blood 8.1 mg/dL (8.5-10.1); Chloride, Blood 107 mmol/L (98-108); Creatinine, Blood 0.93 mg/dL (0.60-1.20); Globulin, Blood 3.5 g/dL (2.2-4.0); Glomerular Filtration Rate >60 (60-); Glucose, Blood 143 mg/dL (70-99); Potassium, Blood 3.6 mmol/L (3.5-5.5); Sodium, Blood 137 mmol/L (136-145); Total Protein, Blood 6.3 g/dL (6.4-8.2)
[2019-02-19 05:49] LABS: BASOPHILS PERCENT MAN 0 % (0-2); EOSINOPHILS PERCENT MAN 0 % (0-6); LYMPHOCYTES ABSOLUTE MAN 2.11 K/mm3 (0.84-5.20); LYMPHOCYTES PERCENT MAN 17 % (21-46); METAMYELOCYTE ABSOLUTE MAN 0.12 K/mm3 (0.00-0.00); METAMYELOCYTE PERCENT MAN 1 % (0-0); MONOCYTES ABSOLUTE MAN 0.62 K/mm3 (0.16-1.47); MONOCYTES PERCENT MAN 5 % (4-13); MYELOCYTE ABSOLUTE MAN 0.24 K/mm3 (0.00-0.00); MYELOCYTE PERCENT MAN 2 % (0-0); NEUTROPHILS ABSOLUTE MAN 9.31 K/mm3 (1.96-9.15); SEG NEUTROPHILS PERCENT MAN 75 % (41-73); TOTAL CELLS COUNTED 100
[2019-02-20 05:36] LABS: Hematocrit 33.6 % (37.0-53.0); Hemoglobin 11.3 g/dL (13.5-17.5); Mean Corpuscular HGB 30.8 pg (26.0-34.0); Mean Corpuscular HGB Conc 33.6 g/dL (31.5-36.5); Mean Corpuscular Volume 92 fL (80-100); Mean Platelet Volume 9.4 fL (9.1-12.4); NRBC ABSOLUTE 0.11 K/mm3 (0.00-0.02); NRBC Auto 0.9 /100 WBC (0.0-0.2); Platelet Count 308 K/mm3 (150-400); RDW Coefficient Variation 14.7 % (11.7-14.2); RDW Standard Deviation 49.3 fL (35.1-46.3); Red Blood Cell Count 3.67 M/mm3 (4.30-5.90); White Blood Cell Count 12.58 K/mm3 (4.00-11.30)
[2019-02-20 05:58] LABS: Alanine Aminotransfer (ALT/SGP 27 U/L (12-78); Albumin, Blood 2.7 g/dL (3.4-5.0); Albumin/Globulin Ratio 0.8 (0.8-1.8); Alk Phos 70 U/L (50-136); Anion Gap 9 mmol/L (6-16); Aspartate Aminotrans (AST/SGOT 16 U/L (12-37); Bilirubin, Total 0.3 mg/dL (0.1-1.0); Blood Urea Nitrogen 16 mg/dL (8-24); Bun/Creatinine Ratio 16.6 (12.0-20.0); CO2, Blood 27 mmol/L (21-32); Calcium, Blood 8.3 mg/dL (8.5-10.1); Chloride, Blood 104 mmol/L (98-108); Creatinine, Blood 0.96 mg/dL (0.60-1.20); Globulin, Blood 3.6 g/dL (2.2-4.0); Glomerular Filtration Rate >60 (60-); Glucose, Blood 91 mg/dL (70-99); Sodium, Blood 140 mmol/L (136-145); Total Protein, Blood 6.3 g/dL (6.4-8.2)
[2019-02-20 06:04] LABS: BASOPHILS PERCENT MAN 0 % (0-2); EOSINOPHILS ABSOLUTE MAN 0.12 K/mm3 (0.00-0.68); EOSINOPHILS PERCENT MAN 1 % (0-6); LYMPHOCYTES ABSOLUTE MAN 2.39 K/mm3 (0.84-5.20); LYMPHOCYTES PERCENT MAN 19 % (21-46); MONOCYTES ABSOLUTE MAN 0.62 K/mm3 (0.16-1.47); MONOCYTES PERCENT MAN 5 % (4-13); MYELOCYTE ABSOLUTE MAN 0.12 K/mm3 (0.00-0.00); MYELOCYTE PERCENT MAN 1 % (0-0); SEG NEUTROPHILS PERCENT MAN 74 % (41-73); TOTAL CELLS COUNTED 100
--- NOTE | 2019-02-20 06:21 | NUR ---
SHIFT SUMMARY PATIENT IS ALERT AND ORIENTED. AT BEDSIDE THROUGHOUT THE NIGHT. PT ON TELE, HR INCREASES WITH EXERTION. PATIENT REQUESTED PAIN MEDICATION THROUGHOUT THE NIGHT. USES CALL LIGHT APPROPRIATELY. PATIENT ON 1500ML FLUID INTAKE. STARTING OUT AT 1000ML THIS AM. PATIENT STATES HE IS EAGER TO GO HOME AND THINKS HE WILL BE DISCHARGED TODAY. NO ACUTE CHANGES. VITALS STABLE
--- NOTE | 2019-02-20 17:51 | NUR ---
SHIFT SUMMARY THE PATIENT PRESENTED THIS SHIFT WITH VITALS WNL, A&O X4 AND WITH LUNG SOUNDS THAT HAD EX, WHEEZES AND WERE DIMINISHED AT THE BASES. THE PATIENT HAS BEEN UP TO HIS CHAIR INDEPENDENTLY, SEVERAL TIMES, THE PATIENT WILL LIKELY GO HOME TOMORROW. THE PATIENT'S SPOUSE IS IN THE ROOM WITH THE PATIENT ALL SHIFT. THE PATIENT IS EATING DINNER AT THIS TIME, WILL CONTINUE TO MONITOR.
--- NOTE | 2019-02-21 03:58 | NUR ---
SHIFT SUMMARY PT HAD NO ISSUES NOTED. PT SLEPT WELL T/O THE SHIFT. PT IN GOOD SPIRITS AND EAGER TO GO HOME. PT CURRENTLY SLEEPING IN NO DISTRESS. CALL LIGHT IN REACH
[2019-02-21 05:32] LABS: Hematocrit 34.5 % (37.0-53.0); Hemoglobin 11.3 g/dL (13.5-17.5); Mean Corpuscular HGB 30.2 pg (26.0-34.0); Mean Corpuscular HGB Conc 32.8 g/dL (31.5-36.5); Mean Corpuscular Volume 92 fL (80-100); Mean Platelet Volume 9.7 fL (9.1-12.4); NRBC ABSOLUTE 0.04 K/mm3 (0.00-0.02); NRBC Auto 0.3 /100 WBC (0.0-0.2); Platelet Count 295 K/mm3 (150-400); RDW Coefficient Variation 14.8 % (11.7-14.2); RDW Standard Deviation 49.1 fL (35.1-46.3); Red Blood Cell Count 3.74 M/mm3 (4.30-5.90); White Blood Cell Count 12.06 K/mm3 (4.00-11.30)
[2019-02-21 05:52] LABS: Alanine Aminotransfer (ALT/SGP 26 U/L (12-78); Albumin, Blood 2.7 g/dL (3.4-5.0); Albumin/Globulin Ratio 0.8 (0.8-1.8); Alk Phos 68 U/L (50-136); Anion Gap 9 mmol/L (6-16); Aspartate Aminotrans (AST/SGOT 17 U/L (12-37); Bilirubin, Total 0.4 mg/dL (0.1-1.0); Blood Urea Nitrogen 20 mg/dL (8-24); Bun/Creatinine Ratio 18.9 (12.0-20.0); CO2, Blood 27 mmol/L (21-32); Calcium, Blood 8.9 mg/dL (8.5-10.1); Chloride, Blood 102 mmol/L (98-108); Creatinine, Blood 1.06 mg/dL (0.60-1.20); Globulin, Blood 3.4 g/dL (2.2-4.0); Glomerular Filtration Rate >60 (60-); Glucose, Blood 167 mg/dL (70-99); Potassium, Blood 3.9 mmol/L (3.5-5.5); Sodium, Blood 138 mmol/L (136-145); Total Protein, Blood 6.1 g/dL (6.4-8.2)
[2019-02-21 05:55] LABS: BASOPHILS PERCENT MAN 0 % (0-2); EOSINOPHILS ABSOLUTE MAN 0.12 K/mm3 (0.00-0.68); EOSINOPHILS PERCENT MAN 1 % (0-6); LYMPHOCYTES ABSOLUTE MAN 1.92 K/mm3 (0.84-5.20); LYMPHOCYTES PERCENT MAN 16 % (21-46); METAMYELOCYTE ABSOLUTE MAN 0.24 K/mm3 (0.00-0.00); METAMYELOCYTE PERCENT MAN 2 % (0-0); MONOCYTES PERCENT MAN 5 % (4-13); MYELOCYTE ABSOLUTE MAN 0.12 K/mm3 (0.00-0.00); MYELOCYTE PERCENT MAN 1 % (0-0); NEUTROPHILS ABSOLUTE MAN 9.04 K/mm3 (1.96-9.15); SEG NEUTROPHILS PERCENT MAN 75 % (41-73); TOTAL CELLS COUNTED 100
[2019-02-21] MEDS ORDERED: ASPI81CH PO (11:46)
[2019-02-21] MEDS ORDERED: Cardizem CD 24240 MG PO (11:47)
[2019-02-21] MEDS ORDERED: Nitroglycerin0.4 MG SL (11:48)
[2019-02-21] MEDS ORDERED: PANT40 PO (11:49)
[2019-02-21] MEDS ORDERED: DELTASONE20 MG PO (11:49)
[2019-02-21] MEDS ORDERED: CEFP200 PO (11:51)
[2019-02-21] MEDS ORDERED: XARELTO20 MG PO (11:51)
[2019-02-21] MEDS ORDERED: FURO20 PO (11:52)
[2019-02-21] MEDS ORDERED: ATOR80 PO (11:53)
--- NOTE | 2019-02-21 12:12 | NUR ---
DISCHARGED REVIEWED DC PAPERWORK W/PT AND SPOUSE. VERBALIZED UNDERSTANDING. DC'D IVS, CATHETERS INTACT. PT LEFT UNIT IN WC W/POSSESSIONS AND DC PAPERWORK IN HAND, ACCOMPANIED BY SPOUSE.
== END 2019-02-21 12:07 | disposition home or self-care (01) | DRG 871 ==
LOC: ER 08:10 → PCU 11:44 → MEDS 02-18 20:32
PROVIDERS: Emergency Medicine; Internal Medicine; Nurse Practitioner Acute Care; ADMIT Family Medicine
DX: A41.9 Sepsis, unspecified organism (principal); J18.1 Lobar pneumonia, unspecified organism; J96.21 Acute and chronic respiratory failure with hypoxia; I21.A1 Myocardial infarction type 2; J44.1 Chronic obstructive pulmonary disease with (acute) exacerbation; J44.0 Chronic obstructive pulmonary disease with (acute) lower respiratory infection; F11.20 Opioid dependence, uncomplicated; Z68.42 Body mass index [BMI] 45.0-49.9, adult; E87.2 Acidosis; E87.6 Hypokalemia; E88.81 Metabolic syndrome and other insulin resistance; I25.10 Atherosclerotic heart disease of native coronary artery without angina pectoris; Z95.5 Presence of coronary angioplasty implant and graft; I10 Essential (primary) hypertension; E03.9 Hypothyroidism, unspecified; G47.33 Obstructive sleep apnea (adult) (pediatric); E66.01 Morbid (severe) obesity due to excess calories; K21.9 Gastro-esophageal reflux disease without esophagitis; M06.9 Rheumatoid arthritis, unspecified; Z85.46 Personal history of malignant neoplasm of prostate; E11.65 Type 2 diabetes mellitus with hyperglycemia; F32.9 Major depressive disorder, single episode, unspecified; I48.0 Paroxysmal atrial fibrillation; K80.20 Calculus of gallbladder without cholecystitis without obstruction; I25.2 Old myocardial infarction; K76.0 Fatty (change of) liver, not elsewhere classified; Z87.891 Personal history of nicotine dependence
CPT/HCPCS: 36415; 36600; 71046; 74177; 76705; 80048; 80053; 81001; 82330; 82803; 82947; 83036; 83605; 83690; 83735; 83880; 84145; 84443; 84484; 85025; 85610; 85730; 87040; 87070; 87205; 87449; 87486; 87581; 87633; 87798; 93005; 93010; 93306; 94640; 94644; 94660; 94762; 96365-59; 96375-59; 99285-25; C9113; J0456; J0696; J1644; J1650; J1815; J1940; J1956; J2930; J3475; J7030; J7050; J7512; Q9967

== ENCOUNTER 2020-09-07 01:06 | Day surgery (SDC) | payer MEDICARE, OTHER ==
[~2020-09-07 01:06] MED LIST changes: +ALBU2.5V5 NEB; +ARMODAFINIL250 MG PO; +ASPI81CH PO; +ATOR80 PO; +BASAGLAR K100 UNIT/1 SC; +CEFP200 PO; +Cardizem LA240 MG PO; +DELTASONE20 MG PO; +DICLOFENAC SOD150 ML TOP; +FLUT1DIS5 INH; +FURO20 PO; +HUMALOG100 UNIT/1 SC; -Humalog100 UNIT/1 SC; +LEVSOD150 PO; +MIRALAX17 GM PO; +Nitroglycerin0.4 MG SL; +OXYC10ER PO; -Oxycodone HCl20 M1 PO; +PANT40 PO; +TRULICITY1.5 MG/0.5 SC; +XARELTO20 MG PO
== END 2020-09-07 23:16 | disposition home or self-care (01) ==
LOC: WOUND 01:06
DX: E11.621 Type 2 diabetes mellitus with foot ulcer (principal); L97.529 Non-pressure chronic ulcer of other part of left foot with unspecified severity; L97.519 Non-pressure chronic ulcer of other part of right foot with unspecified severity; E11.52 Type 2 diabetes mellitus with diabetic peripheral angiopathy with gangrene; I96 Gangrene, not elsewhere classified; E11.59 Type 2 diabetes mellitus with other circulatory complications; E11.40 Type 2 diabetes mellitus with diabetic neuropathy, unspecified; E11.21 Type 2 diabetes mellitus with diabetic nephropathy; E11.65 Type 2 diabetes mellitus with hyperglycemia; E11.36 Type 2 diabetes mellitus with diabetic cataract; H26.9 Unspecified cataract; I25.10 Atherosclerotic heart disease of native coronary artery without angina pectoris; M06.9 Rheumatoid arthritis, unspecified; I10 Essential (primary) hypertension; I25.2 Old myocardial infarction; Z79.4 Long term (current) use of insulin; Z79.51 Long term (current) use of inhaled steroids; Z79.82 Long term (current) use of aspirin; Z79.01 Long term (current) use of anticoagulants; Z88.1 Allergy status to other antibiotic agents; Z88.8 Allergy status to other drugs, medicaments and biological substances; Z87.891 Personal history of nicotine dependence; Z20.828 Contact with and (suspected) exposure to other viral communicable diseases
CPT/HCPCS: 87070; 87077; 87147; 87186; 87205; G0463

== ENCOUNTER 2020-09-15 00:27 | Day surgery (SDC) | payer MEDICARE, OTHER ==
[~2020-09-15 00:27] MED LIST changes: -BASAGLAR K100 UNIT/1 SC; -GABA100 PO; +GABA300 PO; +INSULANI SC; -TRULICITY1.5 MG/0.5 SC; +TRULICITY3 MG/0.5 M SC
[2021-01-25] MEDS ORDERED: ERGO400 PO (16:41)
[2021-01-25] MEDS ORDERED: FAMO20 PO (16:44)
[2021-01-25] MEDS ORDERED: HYDR1TAB94 PO (16:45)
[2021-01-25] MEDS ORDERED: NITR.4SL SL (16:47)
[2021-01-25] MEDS ORDERED: METF500 PO (16:47)
[2021-01-25] MEDS ORDERED: SPIR50 PO (16:48)
== END 2020-09-15 23:36 | disposition home or self-care (01) ==
LOC: WOUND 00:27
DX: E11.621 Type 2 diabetes mellitus with foot ulcer (principal); L97.522 Non-pressure chronic ulcer of other part of left foot with fat layer exposed; L97.512 Non-pressure chronic ulcer of other part of right foot with fat layer exposed; E11.52 Type 2 diabetes mellitus with diabetic peripheral angiopathy with gangrene; I96 Gangrene, not elsewhere classified; E11.21 Type 2 diabetes mellitus with diabetic nephropathy; E11.40 Type 2 diabetes mellitus with diabetic neuropathy, unspecified; E11.65 Type 2 diabetes mellitus with hyperglycemia; M06.9 Rheumatoid arthritis, unspecified; J45.909 Unspecified asthma, uncomplicated; I25.10 Atherosclerotic heart disease of native coronary artery without angina pectoris; I10 Essential (primary) hypertension; I25.2 Old myocardial infarction; Z95.5 Presence of coronary angioplasty implant and graft
CPT/HCPCS: A9270

== ENCOUNTER 2020-09-23 02:01 | Day surgery (SDC) | payer MEDICARE, OTHER ==
[2021-01-25] MEDS ORDERED: ERGO400 PO (16:41)
[2021-01-25] MEDS ORDERED: FAMO20 PO (16:44)
[2021-01-25] MEDS ORDERED: HYDR1TAB94 PO (16:45)
[2021-01-25] MEDS ORDERED: NITR.4SL SL (16:47)
[2021-01-25] MEDS ORDERED: METF500 PO (16:47)
[2021-01-25] MEDS ORDERED: SPIR50 PO (16:48)
== END 2020-09-23 23:57 | disposition home or self-care (01) ==
LOC: WOUND 02:01
DX: E11.621 Type 2 diabetes mellitus with foot ulcer (principal); L97.512 Non-pressure chronic ulcer of other part of right foot with fat layer exposed; L97.522 Non-pressure chronic ulcer of other part of left foot with fat layer exposed; E11.52 Type 2 diabetes mellitus with diabetic peripheral angiopathy with gangrene; E11.59 Type 2 diabetes mellitus with other circulatory complications; E11.21 Type 2 diabetes mellitus with diabetic nephropathy; S91.104D Unspecified open wound of right lesser toe(s) without damage to nail, subsequent encounter; S91.105D Unspecified open wound of left lesser toe(s) without damage to nail, subsequent encounter; J45.909 Unspecified asthma, uncomplicated; G47.30 Sleep apnea, unspecified; I25.10 Atherosclerotic heart disease of native coronary artery without angina pectoris; I10 Essential (primary) hypertension; M06.9 Rheumatoid arthritis, unspecified; I96 Gangrene, not elsewhere classified; E11.36 Type 2 diabetes mellitus with diabetic cataract; H26.9 Unspecified cataract; I25.2 Old myocardial infarction; Z88.1 Allergy status to other antibiotic agents; Z79.4 Long term (current) use of insulin; Z79.82 Long term (current) use of aspirin; Z79.01 Long term (current) use of anticoagulants; Z79.899 Other long term (current) drug therapy; X58.XXXD Exposure to other specified factors, subsequent encounter
CPT/HCPCS: A9270

== ENCOUNTER 2020-10-07 00:40 | Day surgery (SDC) | payer MEDICARE, OTHER ==
[2021-01-25] MEDS ORDERED: ERGO400 PO (16:41)
[2021-01-25] MEDS ORDERED: FAMO20 PO (16:44)
[2021-01-25] MEDS ORDERED: HYDR1TAB94 PO (16:45)
[2021-01-25] MEDS ORDERED: NITR.4SL SL (16:47)
[2021-01-25] MEDS ORDERED: METF500 PO (16:47)
[2021-01-25] MEDS ORDERED: SPIR50 PO (16:48)
== END 2020-10-07 23:13 | disposition home or self-care (01) ==
LOC: WOUND 00:40
DX: E11.621 Type 2 diabetes mellitus with foot ulcer (principal); L97.512 Non-pressure chronic ulcer of other part of right foot with fat layer exposed; L97.529 Non-pressure chronic ulcer of other part of left foot with unspecified severity; E11.59 Type 2 diabetes mellitus with other circulatory complications; E11.21 Type 2 diabetes mellitus with diabetic nephropathy; S91.105D Unspecified open wound of left lesser toe(s) without damage to nail, subsequent encounter; S91.104D Unspecified open wound of right lesser toe(s) without damage to nail, subsequent encounter; Z88.1 Allergy status to other antibiotic agents; X58.XXXD Exposure to other specified factors, subsequent encounter
CPT/HCPCS: A9270; G0463

== ENCOUNTER 2020-10-14 02:19 | Day surgery (SDC) | payer MEDICARE, OTHER ==
[2021-01-25] MEDS ORDERED: ERGO400 PO (16:41)
[2021-01-25] MEDS ORDERED: FAMO20 PO (16:44)
[2021-01-25] MEDS ORDERED: HYDR1TAB94 PO (16:45)
[2021-01-25] MEDS ORDERED: METF500 PO (16:47)
[2021-01-25] MEDS ORDERED: NITR.4SL SL (16:47)
[2021-01-25] MEDS ORDERED: SPIR50 PO (16:48)
== END 2020-10-14 23:45 | disposition home or self-care (01) ==
LOC: WOUND 02:19
DX: E11.621 Type 2 diabetes mellitus with foot ulcer (principal); L97.512 Non-pressure chronic ulcer of other part of right foot with fat layer exposed; E11.59 Type 2 diabetes mellitus with other circulatory complications; E11.21 Type 2 diabetes mellitus with diabetic nephropathy; I73.89 Other specified peripheral vascular diseases; J45.909 Unspecified asthma, uncomplicated; I25.10 Atherosclerotic heart disease of native coronary artery without angina pectoris; I10 Essential (primary) hypertension; I25.2 Old myocardial infarction; Z95.5 Presence of coronary angioplasty implant and graft
CPT/HCPCS: A9270; G0463

== ENCOUNTER 2020-10-21 02:32 | Day surgery (SDC) | payer MEDICARE, OTHER ==
[2021-01-25] MEDS ORDERED: ERGO400 PO (16:41)
[2021-01-25] MEDS ORDERED: FAMO20 PO (16:44)
[2021-01-25] MEDS ORDERED: HYDR1TAB94 PO (16:45)
[2021-01-25] MEDS ORDERED: METF500 PO (16:47)
[2021-01-25] MEDS ORDERED: NITR.4SL SL (16:47)
[2021-01-25] MEDS ORDERED: SPIR50 PO (16:48)
== END 2020-10-21 22:46 | disposition home or self-care (01) ==
LOC: WOUND 02:32
DX: E11.621 Type 2 diabetes mellitus with foot ulcer (principal); S91.104D Unspecified open wound of right lesser toe(s) without damage to nail, subsequent encounter; S91.105D Unspecified open wound of left lesser toe(s) without damage to nail, subsequent encounter; E11.59 Type 2 diabetes mellitus with other circulatory complications; E11.21 Type 2 diabetes mellitus with diabetic nephropathy; I73.89 Other specified peripheral vascular diseases; E11.40 Type 2 diabetes mellitus with diabetic neuropathy, unspecified; J45.909 Unspecified asthma, uncomplicated; I25.10 Atherosclerotic heart disease of native coronary artery without angina pectoris; I10 Essential (primary) hypertension; I25.2 Old myocardial infarction
CPT/HCPCS: A9270; G0463

== ENCOUNTER 2020-10-27 00:33 | Day surgery (SDC) | payer MEDICARE, OTHER ==
[2021-01-25] MEDS ORDERED: ERGO400 PO (16:41)
[2021-01-25] MEDS ORDERED: FAMO20 PO (16:44)
[2021-01-25] MEDS ORDERED: HYDR1TAB94 PO (16:45)
[2021-01-25] MEDS ORDERED: METF500 PO (16:47)
[2021-01-25] MEDS ORDERED: NITR.4SL SL (16:47)
[2021-01-25] MEDS ORDERED: SPIR50 PO (16:48)
== END 2020-10-27 23:53 | disposition home or self-care (01) ==
LOC: WOUND 00:33
DX: E11.621 Type 2 diabetes mellitus with foot ulcer (principal); S91.104D Unspecified open wound of right lesser toe(s) without damage to nail, subsequent encounter; S91.105D Unspecified open wound of left lesser toe(s) without damage to nail, subsequent encounter; E11.59 Type 2 diabetes mellitus with other circulatory complications; E11.21 Type 2 diabetes mellitus with diabetic nephropathy; I73.89 Other specified peripheral vascular diseases; I10 Essential (primary) hypertension; E11.40 Type 2 diabetes mellitus with diabetic neuropathy, unspecified; J45.909 Unspecified asthma, uncomplicated; I25.10 Atherosclerotic heart disease of native coronary artery without angina pectoris; I25.2 Old myocardial infarction; Z95.5 Presence of coronary angioplasty implant and graft
CPT/HCPCS: A9270

== ENCOUNTER 2020-11-04 01:57 | Day surgery (SDC) | payer MEDICARE, OTHER ==
[2021-01-25] MEDS ORDERED: ERGO400 PO (16:41)
[2021-01-25] MEDS ORDERED: FAMO20 PO (16:44)
[2021-01-25] MEDS ORDERED: HYDR1TAB94 PO (16:45)
[2021-01-25] MEDS ORDERED: NITR.4SL SL (16:47)
[2021-01-25] MEDS ORDERED: METF500 PO (16:47)
[2021-01-25] MEDS ORDERED: SPIR50 PO (16:48)
== END 2020-11-04 22:49 | disposition home or self-care (01) ==
LOC: WOUND 01:57
DX: E11.621 Type 2 diabetes mellitus with foot ulcer (principal); L97.522 Non-pressure chronic ulcer of other part of left foot with fat layer exposed; L97.512 Non-pressure chronic ulcer of other part of right foot with fat layer exposed; E11.51 Type 2 diabetes mellitus with diabetic peripheral angiopathy without gangrene; E11.21 Type 2 diabetes mellitus with diabetic nephropathy; E11.40 Type 2 diabetes mellitus with diabetic neuropathy, unspecified; I25.10 Atherosclerotic heart disease of native coronary artery without angina pectoris; G47.30 Sleep apnea, unspecified; J45.909 Unspecified asthma, uncomplicated; I10 Essential (primary) hypertension; Z95.5 Presence of coronary angioplasty implant and graft
CPT/HCPCS: 87070; 87077; 87186; 87205; A9270

== ENCOUNTER 2020-11-15 00:26 | Day surgery (SDC) | payer MEDICARE, OTHER ==
[2021-01-25] MEDS ORDERED: ERGO400 PO (16:41)
[2021-01-25] MEDS ORDERED: FAMO20 PO (16:44)
[2021-01-25] MEDS ORDERED: HYDR1TAB94 PO (16:45)
[2021-01-25] MEDS ORDERED: NITR.4SL SL (16:47)
[2021-01-25] MEDS ORDERED: METF500 PO (16:47)
[2021-01-25] MEDS ORDERED: SPIR50 PO (16:48)
== END 2020-11-15 22:57 | disposition home or self-care (01) ==
LOC: WOUND 00:26
DX: E11.621 Type 2 diabetes mellitus with foot ulcer (principal); L97.512 Non-pressure chronic ulcer of other part of right foot with fat layer exposed; L97.522 Non-pressure chronic ulcer of other part of left foot with fat layer exposed; E11.59 Type 2 diabetes mellitus with other circulatory complications; E11.21 Type 2 diabetes mellitus with diabetic nephropathy; I73.89 Other specified peripheral vascular diseases
CPT/HCPCS: G0463

== ENCOUNTER 2020-12-07 01:29 | Day surgery (SDC) | payer MEDICARE, OTHER ==
[2021-01-25] MEDS ORDERED: ERGO400 PO (16:41)
[2021-01-25] MEDS ORDERED: FAMO20 PO (16:44)
[2021-01-25] MEDS ORDERED: HYDR1TAB94 PO (16:45)
[2021-01-25] MEDS ORDERED: METF500 PO (16:47)
[2021-01-25] MEDS ORDERED: NITR.4SL SL (16:47)
[2021-01-25] MEDS ORDERED: SPIR50 PO (16:48)
== END 2020-12-07 23:04 | disposition home or self-care (01) ==
LOC: WOUND 01:29
DX: S91.104D Unspecified open wound of right lesser toe(s) without damage to nail, subsequent encounter (principal); S91.105D Unspecified open wound of left lesser toe(s) without damage to nail, subsequent encounter; X58.XXXD Exposure to other specified factors, subsequent encounter; E11.59 Type 2 diabetes mellitus with other circulatory complications; E11.621 Type 2 diabetes mellitus with foot ulcer; E11.21 Type 2 diabetes mellitus with diabetic nephropathy; I73.89 Other specified peripheral vascular diseases; I25.10 Atherosclerotic heart disease of native coronary artery without angina pectoris; I10 Essential (primary) hypertension
CPT/HCPCS: A9270; G0463

== ENCOUNTER 2020-12-23 00:55 | Day surgery (SDC) | payer MEDICARE, OTHER ==
[~2020-12-23 00:55] MED LIST changes: +BASAGLAR K100 UNIT/1 SC; +GABA100 PO; -GABA300 PO; -INSULANI SC; +TRULICITY1.5 MG/0.5 SC; -TRULICITY3 MG/0.5 M SC
== END 2020-12-23 23:12 | disposition home or self-care (01) ==
LOC: WOUND
DX: E11.621 Type 2 diabetes mellitus with foot ulcer (principal); L97.522 Non-pressure chronic ulcer of other part of left foot with fat layer exposed; E11.40 Type 2 diabetes mellitus with diabetic neuropathy, unspecified; E11.21 Type 2 diabetes mellitus with diabetic nephropathy; E11.51 Type 2 diabetes mellitus with diabetic peripheral angiopathy without gangrene; J45.909 Unspecified asthma, uncomplicated; G47.30 Sleep apnea, unspecified; I25.10 Atherosclerotic heart disease of native coronary artery without angina pectoris; I10 Essential (primary) hypertension; I25.2 Old myocardial infarction; M06.9 Rheumatoid arthritis, unspecified; Z95.5 Presence of coronary angioplasty implant and graft
CPT/HCPCS: A9270; G0463

== ENCOUNTER 2020-12-27 06:50 | Day surgery (SDC) | payer MEDICARE, OTHER ==
[~2020-12-27] VITALS: Ht 167.6 cm; Wt 119.0 kg
[2020-12-27] MEDS ORDERED: LANS30EC PO (07:22)
--- NOTE | 2020-12-27 12:00 | NUR ---
right femoral arterial sheath removed with amnual pressure held by James Weiss. site stable
--- NOTE | 2020-12-27 12:20 | NUR ---
L FEMORAL SHEATH REMOVED BY SHELLEY LIMONAY TECH. MANUAL PRESSURE HELD UNTIL HEMOSTASIS. NO BLEEDING NOTED. SOFT AND NON TENDER. R FEMORAL SITE REMAINS CLEAR. VSS. NADN. CALL LIGHT WITHIN REACH.
--- NOTE | 2020-12-27 13:00 | NUR ---
SPOKE WITH PATIENT S/O REGARDING DC PLANNING. WILL COME IN WHEN ITS CLOSER TO D/C FOR PATIENT TO DISCUSS PLAN OF CARE. BILATERAL FEMORAL SITES REMAIN CLEAR. NO BLEEDING NOTED. VSS. CALL LIGHT WITHIN REACH
--- NOTE | 2020-12-27 15:21 | NUR ---
PT AMBULATES TO RESTROOM AND BACK WITHOUT DIFF. PT DRESSES SELF WITH MINIMAL ASSISTANCE. PT IV DC'D. CATH INTACT. PT AND S/O VERBALIZES UNDERSTANDING WRITTEN AND VERBAL ORDERS. PT DC TO HOME VIA S/O BY VONNIE.
== END 2020-12-27 15:20 | disposition home or self-care (01) ==
LOC: MHTC 06:50
DX: I70.211 Atherosclerosis of native arteries of extremities with intermittent claudication, right leg (principal); E11.51 Type 2 diabetes mellitus with diabetic peripheral angiopathy without gangrene; E11.621 Type 2 diabetes mellitus with foot ulcer; I25.10 Atherosclerotic heart disease of native coronary artery without angina pectoris; Z95.5 Presence of coronary angioplasty implant and graft; Z87.891 Personal history of nicotine dependence; Z88.8 Allergy status to other drugs, medicaments and biological substances; Z79.4 Long term (current) use of insulin
CPT/HCPCS: 37221; 37228; 75625; 75716; 75774; 76937; 85347; 99152; 99153; C1725; C1769; C1876; C1887; C1894; J1644; J2250; J3010; J7030; Q9967

== ENCOUNTER 2021-01-20 00:53 | Day surgery (SDC) | payer MEDICARE, OTHER ==
[~2021-01-20 00:53] MED LIST changes: -BASAGLAR K100 UNIT/1 SC; -GABA100 PO; +GABA300 PO; +INSULANI SC; +LANS30EC PO; -TRULICITY1.5 MG/0.5 SC; +TRULICITY3 MG/0.5 M SC
[2021-01-25] MEDS ORDERED: ERGO400 PO (16:41)
[2021-01-25] MEDS ORDERED: FAMO20 PO (16:44)
[2021-01-25] MEDS ORDERED: HYDR1TAB94 PO (16:45)
[2021-01-25] MEDS ORDERED: NITR.4SL SL (16:47)
[2021-01-25] MEDS ORDERED: METF500 PO (16:47)
[2021-01-25] MEDS ORDERED: SPIR50 PO (16:48)
== END 2021-01-20 23:08 | disposition home or self-care (01) ==
LOC: WOUND 00:53
DX: E11.621 Type 2 diabetes mellitus with foot ulcer (principal); L97.512 Non-pressure chronic ulcer of other part of right foot with fat layer exposed; L97.529 Non-pressure chronic ulcer of other part of left foot with unspecified severity; S91.104D Unspecified open wound of right lesser toe(s) without damage to nail, subsequent encounter; S91.105D Unspecified open wound of left lesser toe(s) without damage to nail, subsequent encounter; X58.XXXD Exposure to other specified factors, subsequent encounter; E11.59 Type 2 diabetes mellitus with other circulatory complications; E11.21 Type 2 diabetes mellitus with diabetic nephropathy; I73.89 Other specified peripheral vascular diseases; J45.909 Unspecified asthma, uncomplicated; I25.10 Atherosclerotic heart disease of native coronary artery without angina pectoris; Z95.5 Presence of coronary angioplasty implant and graft; I25.2 Old myocardial infarction; M06.9 Rheumatoid arthritis, unspecified
CPT/HCPCS: A9270; G0463

== ENCOUNTER 2021-01-26 09:51 | Day surgery (SDC) | payer MEDICARE, OTHER ==
[~2021-01-26] VITALS: Ht 167.6 cm; Wt 107.0 kg
[~2021-01-26 09:51] MED LIST changes: +ERGO400 PO; +FAMO20 PO; +HYDR1TAB94 PO; +NITR.4SL SL; +SPIR50 PO
--- NOTE | 2021-01-26 17:05 | NUR ---
PATIENT RETURNED TO [facility] RECOVERY ROOM. ALERT AND RESPONDS APPROPRIATELY. LEFT GROIN SOFT AND NONTENDER. DRESSING DRY AND INTACT. RIGHT AND LEFT PT/DP DOPLLER.
--- NOTE | 2021-01-26 18:31 | NUR ---
PATIENT SITTING UP IN BED LEFT GROIN SITE STABLE. DOPPLER TO 1 ON LEFTB PEDAL PULSE. DOPPLER ON RIGHT DP/PT. DRESSING D&I TO TOP OF RIGHT FOOT. SITE SOFT AND NONTENDER TO LEFT GROIN. PATIENT EATING DINNER.
--- NOTE | 2021-01-26 19:16 | NUR ---
PATIENT UP TO RESTROOM. LEFT GROIN SITE AND RIGHT PEDAL SITE REMAIN STABLE. PULES DOPPLER LEFT FOOT. PATIENT, ,AND GRANDAUGHTER VERBALIZED UNDERSTANDING OF DISCAHRGE INSTRUCTIONS AND PRECAUTIONS. PATIENT DISCHARGED VIA WHEEL CHAIR WITH AND BRANDYGHTER.
== END 2021-01-26 23:06 | disposition home or self-care (01) ==
LOC: MHTC 09:51
DX: I70.213 Atherosclerosis of native arteries of extremities with intermittent claudication, bilateral legs (principal); I87.2 Venous insufficiency (chronic) (peripheral); I25.10 Atherosclerotic heart disease of native coronary artery without angina pectoris; E11.621 Type 2 diabetes mellitus with foot ulcer; L97.509 Non-pressure chronic ulcer of other part of unspecified foot with unspecified severity; Z88.8 Allergy status to other drugs, medicaments and biological substances; Z79.899 Other long term (current) drug therapy; Z79.82 Long term (current) use of aspirin
CPT/HCPCS: 37225; 37228; 37232; 75716; 75774; 76937; 85347; 99152; 99153; C1714; C1725; C1760; C1769; C1887; C1894; C2623; J1644; J2250; J3010; J7030; J7040; J7050; Q9967

== ENCOUNTER 2021-01-30 10:03 | Emergency (ER) | payer MEDICARE, OTHER ==
[~2021-01-30] VITALS: Ht 167.6 cm; Wt 113.4 kg
[2021-01-30 10:57] LABS: BASOPHILS ABSOLUTE AUTO 0.05 K/mm3 (0.00-0.23); BASOPHILS PERCENT AUTO 1 % (0-2); EOSINOPHILS PERCENT AUTO 3 % (0-6); Hematocrit 39.1 % (37.0-53.0); Hemoglobin 12.6 g/dL (13.5-17.5); IMMATURE GRAN ABSOLUTE AUTO 0.06 K/mm3 (0.00-0.10); IMMATURE GRAN PERCENT AUTO 1 % (0-1); LYMPHOCYTES PERCENT AUTO 18 % (21-46); MONOCYTES ABSOLUTE AUTO 0.81 K/mm3 (0.16-1.47); MONOCYTES PERCENT AUTO 9 % (4-13); Mean Corpuscular HGB 28.9 pg (26.0-34.0); Mean Corpuscular HGB Conc 32.2 g/dL (31.5-36.5); Mean Corpuscular Volume 90 fL (80-100); Mean Platelet Volume 9.5 fL (9.1-12.4); NEUTROPHILS ABSOLUTE AUTO 6.22 K/mm3 (1.96-9.15); NEUTROPHILS PERCENT AUTO 69 % (41-73); Platelet Count 330 K/mm3 (150-400); RDW Coefficient Variation 15.3 % (11.7-14.2); RDW Standard Deviation 49.9 fL (35.1-46.3); Red Blood Cell Count 4.36 M/mm3 (4.30-5.90); White Blood Cell Count 9.04 K/mm3 (4.00-11.30)
[2021-01-30 11:29] LABS: Alanine Aminotransfer (ALT/SGP 17 U/L (12-78); Albumin, Blood 3.1 g/dL (3.4-5.0); Albumin/Globulin Ratio 0.6 (0.8-1.8); Alk Phos 92 U/L (50-136); Anion Gap 6 mmol/L (6-16); Aspartate Aminotrans (AST/SGOT 15 U/L (12-37); Bilirubin, Total 0.6 mg/dL (0.1-1.0); Blood Urea Nitrogen 16 mg/dL (8-24); Bun/Creatinine Ratio 14.3 (12.0-20.0); CO2, Blood 27 mmol/L (21-32); Calcium, Blood 9.1 mg/dL (8.5-10.1); Chloride, Blood 104 mmol/L (98-108); Creatinine, Blood 1.12 mg/dL (0.60-1.20); Glomerular Filtration Rate >60 (60-); Glucose, Blood 144 mg/dL (70-99); Sodium, Blood 137 mmol/L (136-145); Total Protein, Blood 8.1 g/dL (6.4-8.2)
[2021-01-30 12:07] LABS: Source, Urine Voided
[2021-01-30 12:12] LABS: Appearance, Urine Clear (Clear); Blood, Urine Neg (Neg); Color, Urine Yellow (P-Yellow); Glucose Qualitative, Urine Neg (Neg); Ketones, Urine 1+ (Neg); Leukocyte Esterase, Urine 1+ (Neg); Nitrite, Urine Neg (Neg); Protein, Urine 3+ (Neg); Urobilinogen, Urine 1+ (Normal)
[2021-01-30 12:20] LABS: Bilirubin, Urine 2+ (Neg)
[2021-01-30 12:21] LABS: Bacteria Few /hpf; Red Blood Cells, Urine 0-2 /hpf (0-2); Squamous Epithelial Cells Rare /hpf (Few)
[2021-01-30] MEDS ORDERED: ONDA4ODT SL (12:34)
== END 2021-01-30 13:00 | disposition home or self-care (01) ==
LOC: ER 10:03
PROVIDERS: Emergency Medicine
DX: M79.18 Myalgia, other site (principal); M79.604 Pain in right leg; E11.9 Type 2 diabetes mellitus without complications; I10 Essential (primary) hypertension; E03.9 Hypothyroidism, unspecified; Z91.041 Radiographic dye allergy status; Z88.1 Allergy status to other antibiotic agents; Z79.4 Long term (current) use of insulin; Z79.899 Other long term (current) drug therapy; Z95.5 Presence of coronary angioplasty implant and graft
CPT/HCPCS: 36415; 71045; 74176; 80053; 81001; 82947; 83690; 85025; 87086; 93005; 93010; 96374; 96375; 99284-25; J1170; J1200; J2765; J7030

== ENCOUNTER 2021-02-03 00:59 | Day surgery (SDC) | payer MEDICARE, OTHER ==
[~2021-02-03 00:59] MED LIST changes: +ONDA4ODT SL
== END 2021-02-03 23:12 | disposition home or self-care (01) ==
LOC: WOUND 00:59
DX: E11.621 Type 2 diabetes mellitus with foot ulcer (principal); L97.512 Non-pressure chronic ulcer of other part of right foot with fat layer exposed; L97.526 Non-pressure chronic ulcer of other part of left foot with bone involvement without evidence of necrosis; L97.516 Non-pressure chronic ulcer of other part of right foot with bone involvement without evidence of necrosis; E11.51 Type 2 diabetes mellitus with diabetic peripheral angiopathy without gangrene; E11.21 Type 2 diabetes mellitus with diabetic nephropathy; E11.40 Type 2 diabetes mellitus with diabetic neuropathy, unspecified; J45.909 Unspecified asthma, uncomplicated; I25.10 Atherosclerotic heart disease of native coronary artery without angina pectoris; I10 Essential (primary) hypertension; I25.2 Old myocardial infarction; M06.9 Rheumatoid arthritis, unspecified; S91.104D Unspecified open wound of right lesser toe(s) without damage to nail, subsequent encounter; S91.105D Unspecified open wound of left lesser toe(s) without damage to nail, subsequent encounter; Z95.5 Presence of coronary angioplasty implant and graft
CPT/HCPCS: 73660; 87070; 87075; 87077; 87147; 87186; 87205; A9270; G0463

== ENCOUNTER 2021-02-17 04:24 | Day surgery (SDC) | payer MEDICARE, OTHER ==
[2021-02-19] MEDS ORDERED: FLUT1DIS2 INH (08:30)
[2021-02-19] MEDS ORDERED: NUVIGIL250 MG PO (08:30)
[2021-02-19] MEDS ORDERED: CLIN150 PO (08:31)
[2021-02-19] MEDS ORDERED: CYCL10 PO (08:31)
== END 2021-02-18 00:38 | disposition home or self-care (01) ==
LOC: WOUND 04:24
DX: E11.621 Type 2 diabetes mellitus with foot ulcer (principal); L97.529 Non-pressure chronic ulcer of other part of left foot with unspecified severity; L89.892 Pressure ulcer of other site, stage 2; S91.104D Unspecified open wound of right lesser toe(s) without damage to nail, subsequent encounter; S91.105D Unspecified open wound of left lesser toe(s) without damage to nail, subsequent encounter; I73.89 Other specified peripheral vascular diseases; X58.XXXD Exposure to other specified factors, subsequent encounter; E11.59 Type 2 diabetes mellitus with other circulatory complications; E11.21 Type 2 diabetes mellitus with diabetic nephropathy
CPT/HCPCS: 11102; 36415; 73630; 85025; 85651; 87071; 87075; 87077; 87106; 87186; 87205; 88305; 88311; A9270

== ENCOUNTER 2021-02-19 07:23 | Day surgery (SDC) | payer MEDICARE, OTHER ==
[~2021-02-19] VITALS: Ht 167.6 cm; Wt 112.3 kg
[2021-02-19] MEDS ORDERED: FLUT1DIS2 INH (08:30)
[2021-02-19] MEDS ORDERED: NUVIGIL250 MG PO (08:30)
[2021-02-19] MEDS ORDERED: CLIN150 PO (08:31)
[2021-02-19] MEDS ORDERED: CYCL10 PO (08:31)
== END 2021-02-19 09:58 | disposition home or self-care (01) ==
LOC: ATC 07:23
DX: E11.621 Type 2 diabetes mellitus with foot ulcer (principal); L97.526 Non-pressure chronic ulcer of other part of left foot with bone involvement without evidence of necrosis; L97.512 Non-pressure chronic ulcer of other part of right foot with fat layer exposed; E11.21 Type 2 diabetes mellitus with diabetic nephropathy; E11.51 Type 2 diabetes mellitus with diabetic peripheral angiopathy without gangrene; E11.69 Type 2 diabetes mellitus with other specified complication; L03.032 Cellulitis of left toe; J45.909 Unspecified asthma, uncomplicated; I10 Essential (primary) hypertension; I25.2 Old myocardial infarction; M06.9 Rheumatoid arthritis, unspecified; Z95.5 Presence of coronary angioplasty implant and graft; Z88.1 Allergy status to other antibiotic agents; Z88.8 Allergy status to other drugs, medicaments and biological substances; Z79.4 Long term (current) use of insulin
CPT/HCPCS: 82565; 96365; J3370; J7050

== ENCOUNTER 2021-02-20 00:18 | Day surgery (SDC) | payer MEDICARE, OTHER ==
[~2021-02-20 00:18] MED LIST changes: +CLIN150 PO; +CYCL10 PO; +FLUT1DIS2 INH; +NUVIGIL250 MG PO
== END 2021-02-20 09:23 | disposition home or self-care (01) ==
LOC: ATC 00:18
DX: E11.621 Type 2 diabetes mellitus with foot ulcer (principal); L97.526 Non-pressure chronic ulcer of other part of left foot with bone involvement without evidence of necrosis; L97.512 Non-pressure chronic ulcer of other part of right foot with fat layer exposed; E11.40 Type 2 diabetes mellitus with diabetic neuropathy, unspecified; E11.51 Type 2 diabetes mellitus with diabetic peripheral angiopathy without gangrene; E11.69 Type 2 diabetes mellitus with other specified complication; L03.032 Cellulitis of left toe; G47.33 Obstructive sleep apnea (adult) (pediatric); I10 Essential (primary) hypertension; I25.10 Atherosclerotic heart disease of native coronary artery without angina pectoris; I25.2 Old myocardial infarction; J45.909 Unspecified asthma, uncomplicated; M06.9 Rheumatoid arthritis, unspecified; Z79.4 Long term (current) use of insulin; Z95.5 Presence of coronary angioplasty implant and graft; Z88.1 Allergy status to other antibiotic agents; Z88.8 Allergy status to other drugs, medicaments and biological substances
CPT/HCPCS: 96365; J3370; J7050

== ENCOUNTER 2021-02-21 07:45 | Day surgery (SDC) | payer MEDICARE, OTHER ==
[~2021-02-21] VITALS: Ht 167.6 cm; Wt 112.0 kg
[2021-02-21 08:57] LABS: BASOPHILS ABSOLUTE AUTO 0.09 K/mm3 (0.00-0.23); BASOPHILS PERCENT AUTO 1 % (0-2); EOSINOPHILS ABSOLUTE AUTO 0.36 K/mm3 (0.00-0.68); EOSINOPHILS PERCENT AUTO 4 % (0-6); Hematocrit 36.3 % (37.0-53.0); Hemoglobin 11.5 g/dL (13.5-17.5); IMMATURE GRAN ABSOLUTE AUTO 0.05 K/mm3 (0.00-0.10); IMMATURE GRAN PERCENT AUTO 1 % (0-1); LYMPHOCYTES ABSOLUTE AUTO 2.08 K/mm3 (0.84-5.20); LYMPHOCYTES PERCENT AUTO 24 % (21-46); MONOCYTES ABSOLUTE AUTO 0.62 K/mm3 (0.16-1.47); MONOCYTES PERCENT AUTO 7 % (4-13); Mean Corpuscular HGB 29.3 pg (26.0-34.0); Mean Corpuscular HGB Conc 31.7 g/dL (31.5-36.5); Mean Corpuscular Volume 93 fL (80-100); Mean Platelet Volume 10.3 fL (9.1-12.4); NEUTROPHILS ABSOLUTE AUTO 5.37 K/mm3 (1.96-9.15); NEUTROPHILS PERCENT AUTO 63 % (41-73); Platelet Count 251 K/mm3 (150-400); RDW Coefficient Variation 16.1 % (11.7-14.2); RDW Standard Deviation 55.2 fL (35.1-46.3); Red Blood Cell Count 3.92 M/mm3 (4.30-5.90); White Blood Cell Count 8.57 K/mm3 (4.00-11.30)
[2021-02-21 09:14] LABS: Alanine Aminotransfer (ALT/SGP 16 U/L (12-78); Albumin, Blood 3.2 g/dL (3.4-5.0); Albumin/Globulin Ratio 0.8 (0.8-1.8); Alk Phos 75 U/L (50-136); Anion Gap 8 mmol/L (6-16); Aspartate Aminotrans (AST/SGOT 11 U/L (12-37); Bilirubin, Total 0.5 mg/dL (0.1-1.0); Blood Urea Nitrogen 12 mg/dL (8-24); Bun/Creatinine Ratio 13.1 (12.0-20.0); CO2, Blood 26 mmol/L (21-32); Calcium, Blood 8.6 mg/dL (8.5-10.1); Chloride, Blood 105 mmol/L (98-108); Creatinine, Blood 0.92 mg/dL (0.60-1.20); Glomerular Filtration Rate >60 (60-); Glucose, Blood 131 mg/dL (70-99); Potassium, Blood 3.6 mmol/L (3.5-5.5); Sodium, Blood 139 mmol/L (136-145); Total Protein, Blood 7.2 g/dL (6.4-8.2); Vancomycin, Trough 12.3 ug/mL (5.0-10.0)
--- NOTE | 2021-02-21 12:09 | NUR ---
VANCOMYACIN WAS STARTED AT 0936 AND COMPUTER WILL NOT LET ME FINISH MEDICATION GIVEN. STOP TIME 1106.
== END 2021-02-21 10:15 | disposition home or self-care (01) ==
LOC: ATC 07:45
PROVIDERS: Nurse Practitioner Family
DX: E11.621 Type 2 diabetes mellitus with foot ulcer (principal); L97.526 Non-pressure chronic ulcer of other part of left foot with bone involvement without evidence of necrosis; L97.512 Non-pressure chronic ulcer of other part of right foot with fat layer exposed; L03.032 Cellulitis of left toe; L89.893 Pressure ulcer of other site, stage 3; E11.59 Type 2 diabetes mellitus with other circulatory complications; E11.21 Type 2 diabetes mellitus with diabetic nephropathy; E11.51 Type 2 diabetes mellitus with diabetic peripheral angiopathy without gangrene; M06.9 Rheumatoid arthritis, unspecified; J45.909 Unspecified asthma, uncomplicated; G47.30 Sleep apnea, unspecified; I25.10 Atherosclerotic heart disease of native coronary artery without angina pectoris; I10 Essential (primary) hypertension; Z79.4 Long term (current) use of insulin
CPT/HCPCS: 80053; 80202; 85025; 85651; 86140; 96365; J3370; J7050

== ENCOUNTER 2021-02-22 04:49 | Day surgery (SDC) | payer MEDICARE, OTHER | END 2021-02-22 11:10 | disposition home or self-care (01) | LOC: ATC 04:49 | DX: E11.621 Type 2 diabetes mellitus with foot ulcer (principal); L97.526 Non-pressure chronic ulcer of other part of left foot with bone involvement without evidence of necrosis; L97.512 Non-pressure chronic ulcer of other part of right foot with fat layer exposed; L89.893 Pressure ulcer of other site, stage 3; E11.51 Type 2 diabetes mellitus with diabetic peripheral angiopathy without gangrene; E11.21 Type 2 diabetes mellitus with diabetic nephropathy; E11.40 Type 2 diabetes mellitus with diabetic neuropathy, unspecified; M06.9 Rheumatoid arthritis, unspecified; J45.909 Unspecified asthma, uncomplicated; I25.10 Atherosclerotic heart disease of native coronary artery without angina pectoris; G47.30 Sleep apnea, unspecified; I10 Essential (primary) hypertension; I25.2 Old myocardial infarction; Z95.5 Presence of coronary angioplasty implant and graft; Z79.899 Other long term (current) drug therapy; Z79.4 Long term (current) use of insulin; Z88.1 Allergy status to other antibiotic agents; Z88.8 Allergy status to other drugs, medicaments and biological substances | CPT/HCPCS: 36569; 96365; C1751; J3370; J7050 ==

== ENCOUNTER 2021-02-23 04:18 | Day surgery (SDC) | payer MEDICARE, OTHER ==
[2021-02-24] MEDS ORDERED: HUMIRA(CF)20 MG/0.2 SC (09:12)
== END 2021-02-23 10:01 | disposition home or self-care (01) ==
LOC: ATC 04:18
DX: E11.621 Type 2 diabetes mellitus with foot ulcer (principal); L97.526 Non-pressure chronic ulcer of other part of left foot with bone involvement without evidence of necrosis; L97.512 Non-pressure chronic ulcer of other part of right foot with fat layer exposed; L89.893 Pressure ulcer of other site, stage 3; J45.909 Unspecified asthma, uncomplicated; G47.30 Sleep apnea, unspecified; I25.10 Atherosclerotic heart disease of native coronary artery without angina pectoris; I10 Essential (primary) hypertension; I25.2 Old myocardial infarction; M06.9 Rheumatoid arthritis, unspecified; E11.40 Type 2 diabetes mellitus with diabetic neuropathy, unspecified; E11.51 Type 2 diabetes mellitus with diabetic peripheral angiopathy without gangrene; E11.21 Type 2 diabetes mellitus with diabetic nephropathy; Z95.5 Presence of coronary angioplasty implant and graft
CPT/HCPCS: 96365; 96366; J3370; J7050

== ENCOUNTER 2021-02-24 04:38 | Day surgery (SDC) | payer MEDICARE, OTHER ==
[2021-02-24] MEDS ORDERED: HUMIRA(CF)20 MG/0.2 SC (09:12)
[2021-02-25] MEDS ORDERED: VANCOMYCIN HCL1 G1 IV (08:25)
== END 2021-02-24 23:54 | disposition home or self-care (01) ==
LOC: WOUND 04:38
DX: E11.621 Type 2 diabetes mellitus with foot ulcer (principal); L97.525 Non-pressure chronic ulcer of other part of left foot with muscle involvement without evidence of necrosis; L89.893 Pressure ulcer of other site, stage 3; S91.104D Unspecified open wound of right lesser toe(s) without damage to nail, subsequent encounter; S91.105D Unspecified open wound of left lesser toe(s) without damage to nail, subsequent encounter; X58.XXXD Exposure to other specified factors, subsequent encounter; I73.89 Other specified peripheral vascular diseases; E11.59 Type 2 diabetes mellitus with other circulatory complications; E11.21 Type 2 diabetes mellitus with diabetic nephropathy; I25.10 Atherosclerotic heart disease of native coronary artery without angina pectoris; Z95.5 Presence of coronary angioplasty implant and graft; I10 Essential (primary) hypertension; I25.2 Old myocardial infarction; M06.9 Rheumatoid arthritis, unspecified
CPT/HCPCS: 80202; 82565; 96365; 96366; A9270; J3370; J7050

== ENCOUNTER 2021-02-24 04:53 | Day surgery (SDC) | payer MEDICARE, OTHER ==
[~2021-02-24] VITALS: Ht 167.6 cm; Wt 112.0 kg
[2021-02-24 08:48] LABS: Creatinine, Blood 0.91 mg/dL (0.60-1.20); Vancomycin, Trough 13.5 ug/mL (5.0-10.0)
[2021-02-24] MEDS ORDERED: HUMIRA(CF)20 MG/0.2 SC (09:12)
[2021-02-25] MEDS ORDERED: VANCOMYCIN HCL1 G1 IV (08:25)
== END 2021-02-24 10:33 | disposition home or self-care (01) ==
LOC: ATC 04:53
PROVIDERS: Nurse Practitioner Family
DX: E11.621 Type 2 diabetes mellitus with foot ulcer (principal); L97.512 Non-pressure chronic ulcer of other part of right foot with fat layer exposed; L97.522 Non-pressure chronic ulcer of other part of left foot with fat layer exposed; L89.893 Pressure ulcer of other site, stage 3; E11.40 Type 2 diabetes mellitus with diabetic neuropathy, unspecified; E11.51 Type 2 diabetes mellitus with diabetic peripheral angiopathy without gangrene; E11.21 Type 2 diabetes mellitus with diabetic nephropathy; J45.909 Unspecified asthma, uncomplicated; I25.10 Atherosclerotic heart disease of native coronary artery without angina pectoris; M06.9 Rheumatoid arthritis, unspecified; G47.30 Sleep apnea, unspecified; I10 Essential (primary) hypertension; I25.2 Old myocardial infarction; Z95.5 Presence of coronary angioplasty implant and graft; Z79.4 Long term (current) use of insulin
CPT/HCPCS: 80202; 82565; 96365; 96366; J3370; J7050

== ENCOUNTER 2021-02-25 08:06 | Day surgery (SDC) | payer MEDICARE, OTHER ==
[~2021-02-25 08:06] MED LIST changes: +HUMIRA(CF)20 MG/0.2 SC
[2021-02-25] MEDS ORDERED: VANCOMYCIN HCL1 G1 IV (08:25)
== END 2021-02-25 09:48 | disposition home or self-care (01) ==
LOC: ATC 08:06
DX: E11.621 Type 2 diabetes mellitus with foot ulcer (principal); L97.526 Non-pressure chronic ulcer of other part of left foot with bone involvement without evidence of necrosis; L97.512 Non-pressure chronic ulcer of other part of right foot with fat layer exposed; L89.893 Pressure ulcer of other site, stage 3; E11.51 Type 2 diabetes mellitus with diabetic peripheral angiopathy without gangrene; E11.21 Type 2 diabetes mellitus with diabetic nephropathy; E11.40 Type 2 diabetes mellitus with diabetic neuropathy, unspecified; J45.909 Unspecified asthma, uncomplicated; G47.30 Sleep apnea, unspecified; I25.10 Atherosclerotic heart disease of native coronary artery without angina pectoris; I10 Essential (primary) hypertension; I25.2 Old myocardial infarction; M06.9 Rheumatoid arthritis, unspecified; Z79.4 Long term (current) use of insulin; Z95.5 Presence of coronary angioplasty implant and graft; Z88.1 Allergy status to other antibiotic agents; Z88.8 Allergy status to other drugs, medicaments and biological substances
CPT/HCPCS: 96365; J3370; J7050

== ENCOUNTER 2021-02-26 07:55 | Day surgery (SDC) | payer MEDICARE, OTHER ==
[~2021-02-26 07:55] MED LIST changes: +VANCOMYCIN HCL1 G1 IV
--- NOTE | 2021-02-26 09:13 | NUR ---
PT HERE WITH DODIE. PT ASKED IF HE COULD TAKE A SHOWER THE FAMILY ARE AT A FAMILY REUNION AND THERE ARE NO FACILITES. PT AND DODIE WERE ASKING FOR A LOT OF HOSPITAL ITEMS FOR HIS CARE. THEY WANTED NEW SOCKS, COMB, TOOTHBRUSH, TAPE AND FOOD.
== END 2021-02-26 10:07 | disposition home or self-care (01) ==
LOC: ATC 07:55
DX: E11.621 Type 2 diabetes mellitus with foot ulcer (principal); L97.522 Non-pressure chronic ulcer of other part of left foot with fat layer exposed; L97.512 Non-pressure chronic ulcer of other part of right foot with fat layer exposed; L97.526 Non-pressure chronic ulcer of other part of left foot with bone involvement without evidence of necrosis; I25.10 Atherosclerotic heart disease of native coronary artery without angina pectoris; I10 Essential (primary) hypertension; I25.2 Old myocardial infarction; M06.9 Rheumatoid arthritis, unspecified; E11.40 Type 2 diabetes mellitus with diabetic neuropathy, unspecified; E11.51 Type 2 diabetes mellitus with diabetic peripheral angiopathy without gangrene; G47.30 Sleep apnea, unspecified; Z79.4 Long term (current) use of insulin; Z88.1 Allergy status to other antibiotic agents; Z88.8 Allergy status to other drugs, medicaments and biological substances; Z99.89 Dependence on other enabling machines and devices; Z79.01 Long term (current) use of anticoagulants
CPT/HCPCS: 96365; 96375; J2405; J3370; J7050

== ENCOUNTER 2021-02-27 01:02 | Day surgery (SDC) | payer MEDICARE, OTHER ==
--- NOTE | 2021-02-27 08:51 | NUR ---
PT HAS AN MRI SCHEDULED ON Saturday03/02/21 AT 1000. HE WILL BE COMING IN AT 0730 THAT MORNING FOR A LAB DRAW AND HIS VANCO DOSE.
[2021-02-27 08:54] LABS: Creatinine, Blood 1.09 mg/dL (0.60-1.20)
--- NOTE | 2021-02-27 10:23 | NUR ---
PT REQUESTED ZOFRAN PRIOR TO DISCHARGE TODAY.
== END 2021-02-27 10:19 | disposition home or self-care (01) ==
LOC: ATC 01:02
PROVIDERS: Nurse Practitioner Family
DX: E11.621 Type 2 diabetes mellitus with foot ulcer (principal); L97.526 Non-pressure chronic ulcer of other part of left foot with bone involvement without evidence of necrosis; L97.512 Non-pressure chronic ulcer of other part of right foot with fat layer exposed; I10 Essential (primary) hypertension; J45.909 Unspecified asthma, uncomplicated; I25.2 Old myocardial infarction; E11.59 Type 2 diabetes mellitus with other circulatory complications; E11.21 Type 2 diabetes mellitus with diabetic nephropathy; E11.51 Type 2 diabetes mellitus with diabetic peripheral angiopathy without gangrene; B95.2 Enterococcus as the cause of diseases classified elsewhere; Z88.1 Allergy status to other antibiotic agents; Z88.8 Allergy status to other drugs, medicaments and biological substances; Z79.4 Long term (current) use of insulin; Z95.5 Presence of coronary angioplasty implant and graft
CPT/HCPCS: 80202; 82565; 96365; 96375; J2405; J3370; J7050

== ENCOUNTER 2021-02-28 05:03 | Day surgery (SDC) | payer MEDICARE, OTHER | END 2021-02-28 09:39 | disposition home or self-care (01) | LOC: ATC 05:03 | DX: E11.621 Type 2 diabetes mellitus with foot ulcer (principal); L97.512 Non-pressure chronic ulcer of other part of right foot with fat layer exposed; L97.526 Non-pressure chronic ulcer of other part of left foot with bone involvement without evidence of necrosis; E11.40 Type 2 diabetes mellitus with diabetic neuropathy, unspecified; E11.51 Type 2 diabetes mellitus with diabetic peripheral angiopathy without gangrene; I25.10 Atherosclerotic heart disease of native coronary artery without angina pectoris; I10 Essential (primary) hypertension; I25.2 Old myocardial infarction; M06.9 Rheumatoid arthritis, unspecified; G47.30 Sleep apnea, unspecified; Z99.89 Dependence on other enabling machines and devices; Z95.5 Presence of coronary angioplasty implant and graft | CPT/HCPCS: 96365; 96375; J2405; J3370; J7050 ==

== ENCOUNTER 2021-03-01 04:49 | Day surgery (SDC) | payer MEDICARE, OTHER | END 2021-03-01 09:56 | disposition home or self-care (01) | LOC: ATC 04:49 | DX: E11.621 Type 2 diabetes mellitus with foot ulcer (principal); L97.512 Non-pressure chronic ulcer of other part of right foot with fat layer exposed; L97.526 Non-pressure chronic ulcer of other part of left foot with bone involvement without evidence of necrosis; L03.032 Cellulitis of left toe; E11.21 Type 2 diabetes mellitus with diabetic nephropathy; E11.51 Type 2 diabetes mellitus with diabetic peripheral angiopathy without gangrene; E11.59 Type 2 diabetes mellitus with other circulatory complications; L89.893 Pressure ulcer of other site, stage 3; J45.909 Unspecified asthma, uncomplicated; G47.30 Sleep apnea, unspecified; I25.10 Atherosclerotic heart disease of native coronary artery without angina pectoris; I10 Essential (primary) hypertension; I25.2 Old myocardial infarction; M06.9 Rheumatoid arthritis, unspecified; Z95.5 Presence of coronary angioplasty implant and graft; Z79.4 Long term (current) use of insulin | CPT/HCPCS: 96365; 96375; J2405; J3370; J7050 ==

== ENCOUNTER 2021-03-02 00:04 | Day surgery (SDC) | payer MEDICARE, OTHER ==
[2021-03-02 08:01] LABS: Creatinine, Blood 1.02 mg/dL (0.60-1.20); Vancomycin, Trough 12.4 ug/mL (5.0-10.0)
== END 2021-03-02 09:11 | disposition home or self-care (01) ==
LOC: ATC 00:04
PROVIDERS: Nurse Practitioner Family
DX: E11.621 Type 2 diabetes mellitus with foot ulcer (principal); L97.512 Non-pressure chronic ulcer of other part of right foot with fat layer exposed; L97.526 Non-pressure chronic ulcer of other part of left foot with bone involvement without evidence of necrosis; L03.032 Cellulitis of left toe; L89.893 Pressure ulcer of other site, stage 3; E11.51 Type 2 diabetes mellitus with diabetic peripheral angiopathy without gangrene; E11.21 Type 2 diabetes mellitus with diabetic nephropathy; J45.909 Unspecified asthma, uncomplicated; G47.30 Sleep apnea, unspecified; I25.10 Atherosclerotic heart disease of native coronary artery without angina pectoris; Z95.5 Presence of coronary angioplasty implant and graft; I25.2 Old myocardial infarction; I10 Essential (primary) hypertension; M06.9 Rheumatoid arthritis, unspecified; E11.40 Type 2 diabetes mellitus with diabetic neuropathy, unspecified; Z79.82 Long term (current) use of aspirin; Z88.1 Allergy status to other antibiotic agents; Z88.8 Allergy status to other drugs, medicaments and biological substances; Z79.899 Other long term (current) drug therapy; Z79.4 Long term (current) use of insulin
CPT/HCPCS: 73720; 80202; 82565; 96365; 96375; A9579; J2405; J3370; J7050

== ENCOUNTER 2021-03-03 01:46 | Day surgery (SDC) | payer MEDICARE, OTHER | END 2021-03-03 12:00 | disposition home or self-care (01) | LOC: WOUND 01:46 | DX: E11.621 Type 2 diabetes mellitus with foot ulcer (principal); L97.525 Non-pressure chronic ulcer of other part of left foot with muscle involvement without evidence of necrosis; L89.893 Pressure ulcer of other site, stage 3; S91.104D Unspecified open wound of right lesser toe(s) without damage to nail, subsequent encounter; S91.105D Unspecified open wound of left lesser toe(s) without damage to nail, subsequent encounter; X58.XXXD Exposure to other specified factors, subsequent encounter; I73.89 Other specified peripheral vascular diseases; E11.59 Type 2 diabetes mellitus with other circulatory complications; E11.21 Type 2 diabetes mellitus with diabetic nephropathy; J45.909 Unspecified asthma, uncomplicated; I25.10 Atherosclerotic heart disease of native coronary artery without angina pectoris; Z95.5 Presence of coronary angioplasty implant and graft; I10 Essential (primary) hypertension; I25.2 Old myocardial infarction; M06.9 Rheumatoid arthritis, unspecified | CPT/HCPCS: 96365; 96366; 96375; A9270; J2405; J3370; J7050 ==

== ENCOUNTER 2021-03-04 06:41 | Day surgery (SDC) | payer MEDICARE, OTHER | END 2021-03-04 09:53 | disposition home or self-care (01) | LOC: ATC 06:41 | DX: E11.621 Type 2 diabetes mellitus with foot ulcer (principal); L97.512 Non-pressure chronic ulcer of other part of right foot with fat layer exposed; L97.526 Non-pressure chronic ulcer of other part of left foot with bone involvement without evidence of necrosis; L03.032 Cellulitis of left toe; E11.40 Type 2 diabetes mellitus with diabetic neuropathy, unspecified; E11.51 Type 2 diabetes mellitus with diabetic peripheral angiopathy without gangrene; E11.59 Type 2 diabetes mellitus with other circulatory complications; L89.893 Pressure ulcer of other site, stage 3; J45.909 Unspecified asthma, uncomplicated; G47.30 Sleep apnea, unspecified; I25.10 Atherosclerotic heart disease of native coronary artery without angina pectoris; I10 Essential (primary) hypertension; M06.9 Rheumatoid arthritis, unspecified; Z79.4 Long term (current) use of insulin; Z79.01 Long term (current) use of anticoagulants | CPT/HCPCS: 96365; 96366; 96375; J2405; J3370; J7050 ==

== ENCOUNTER 2021-03-05 08:14 | Day surgery (SDC) | payer MEDICARE, OTHER ==
[2021-03-05 08:56] LABS: Creatinine, Blood 0.92 mg/dL (0.60-1.20)
== END 2021-03-05 11:07 | disposition home or self-care (01) ==
LOC: ATC 08:14
PROVIDERS: Nurse Practitioner Family
DX: E11.621 Type 2 diabetes mellitus with foot ulcer (principal); L97.522 Non-pressure chronic ulcer of other part of left foot with fat layer exposed; L97.512 Non-pressure chronic ulcer of other part of right foot with fat layer exposed; E11.40 Type 2 diabetes mellitus with diabetic neuropathy, unspecified; I10 Essential (primary) hypertension; J45.909 Unspecified asthma, uncomplicated; I25.10 Atherosclerotic heart disease of native coronary artery without angina pectoris; E11.59 Type 2 diabetes mellitus with other circulatory complications; E11.21 Type 2 diabetes mellitus with diabetic nephropathy; G47.30 Sleep apnea, unspecified; Z79.4 Long term (current) use of insulin; Z88.8 Allergy status to other drugs, medicaments and biological substances
CPT/HCPCS: 80202; 82565; 96365; 96375; J2405; J3370; J7050

== ENCOUNTER 2021-03-06 00:19 | Day surgery (SDC) | payer MEDICARE, OTHER | END 2021-03-06 09:55 | disposition home or self-care (01) | LOC: ATC 00:19 | DX: E11.621 Type 2 diabetes mellitus with foot ulcer (principal); L97.522 Non-pressure chronic ulcer of other part of left foot with fat layer exposed; L97.512 Non-pressure chronic ulcer of other part of right foot with fat layer exposed; E11.40 Type 2 diabetes mellitus with diabetic neuropathy, unspecified; I10 Essential (primary) hypertension; J45.909 Unspecified asthma, uncomplicated; I25.10 Atherosclerotic heart disease of native coronary artery without angina pectoris; E11.59 Type 2 diabetes mellitus with other circulatory complications; E11.21 Type 2 diabetes mellitus with diabetic nephropathy; G47.30 Sleep apnea, unspecified; Z79.4 Long term (current) use of insulin; Z88.8 Allergy status to other drugs, medicaments and biological substances | CPT/HCPCS: 96365; 96375; J2405; J3370; J7050 ==

== ENCOUNTER 2021-03-07 04:15 | Day surgery (SDC) | payer MEDICARE, OTHER | END 2021-03-07 10:11 | disposition home or self-care (01) | LOC: ATC 04:15 | DX: E11.621 Type 2 diabetes mellitus with foot ulcer (principal); L97.529 Non-pressure chronic ulcer of other part of left foot with unspecified severity; L97.519 Non-pressure chronic ulcer of other part of right foot with unspecified severity; L89.893 Pressure ulcer of other site, stage 3; M06.9 Rheumatoid arthritis, unspecified; J45.909 Unspecified asthma, uncomplicated; G47.30 Sleep apnea, unspecified; I25.10 Atherosclerotic heart disease of native coronary artery without angina pectoris; I10 Essential (primary) hypertension; I25.2 Old myocardial infarction; E11.40 Type 2 diabetes mellitus with diabetic neuropathy, unspecified; E11.21 Type 2 diabetes mellitus with diabetic nephropathy; Z88.8 Allergy status to other drugs, medicaments and biological substances; Z88.1 Allergy status to other antibiotic agents; Z95.5 Presence of coronary angioplasty implant and graft | CPT/HCPCS: 96365; 96366; 96375; J2405; J3370; J7050 ==

== ENCOUNTER 2021-03-08 03:06 | Day surgery (SDC) | payer MEDICARE, OTHER ==
[2021-03-08 08:54] LABS: Creatinine, Blood 1.02 mg/dL (0.60-1.20); Vancomycin, Trough 13.7 ug/mL (5.0-10.0)
== END 2021-03-08 10:55 | disposition home or self-care (01) ==
LOC: ATC 03:06
PROVIDERS: Nurse Practitioner Family
DX: E11.621 Type 2 diabetes mellitus with foot ulcer (principal); L97.512 Non-pressure chronic ulcer of other part of right foot with fat layer exposed; L97.526 Non-pressure chronic ulcer of other part of left foot with bone involvement without evidence of necrosis; E11.40 Type 2 diabetes mellitus with diabetic neuropathy, unspecified; I25.10 Atherosclerotic heart disease of native coronary artery without angina pectoris; I10 Essential (primary) hypertension; G47.30 Sleep apnea, unspecified; I25.2 Old myocardial infarction; M06.9 Rheumatoid arthritis, unspecified; E11.51 Type 2 diabetes mellitus with diabetic peripheral angiopathy without gangrene; Z88.1 Allergy status to other antibiotic agents; Z88.8 Allergy status to other drugs, medicaments and biological substances; Z79.4 Long term (current) use of insulin; Z79.01 Long term (current) use of anticoagulants; Z95.5 Presence of coronary angioplasty implant and graft; Z99.89 Dependence on other enabling machines and devices
CPT/HCPCS: 80202; 82565; 96365; 96366; 96375; J2405; J3370; J7050

== ENCOUNTER 2021-03-09 00:10 | Day surgery (SDC) | payer MEDICARE, OTHER | END 2021-03-09 09:56 | disposition home or self-care (01) | LOC: ATC 00:10 | DX: E11.621 Type 2 diabetes mellitus with foot ulcer (principal); L97.526 Non-pressure chronic ulcer of other part of left foot with bone involvement without evidence of necrosis; L97.512 Non-pressure chronic ulcer of other part of right foot with fat layer exposed; J45.909 Unspecified asthma, uncomplicated; G47.30 Sleep apnea, unspecified; I25.10 Atherosclerotic heart disease of native coronary artery without angina pectoris; I10 Essential (primary) hypertension; E11.59 Type 2 diabetes mellitus with other circulatory complications; E11.21 Type 2 diabetes mellitus with diabetic nephropathy; E11.40 Type 2 diabetes mellitus with diabetic neuropathy, unspecified; Z79.4 Long term (current) use of insulin; Z88.1 Allergy status to other antibiotic agents; Z88.8 Allergy status to other drugs, medicaments and biological substances | CPT/HCPCS: 96365; 96366; 96375; J2405; J3370; J7050 ==

== ENCOUNTER 2021-03-10 04:52 | Day surgery (SDC) | payer MEDICARE, OTHER | END 2021-03-10 23:44 | disposition home or self-care (01) | LOC: WOUND 04:52 | DX: E11.621 Type 2 diabetes mellitus with foot ulcer (principal); L97.526 Non-pressure chronic ulcer of other part of left foot with bone involvement without evidence of necrosis; L97.512 Non-pressure chronic ulcer of other part of right foot with fat layer exposed; J45.909 Unspecified asthma, uncomplicated; G47.30 Sleep apnea, unspecified; I25.10 Atherosclerotic heart disease of native coronary artery without angina pectoris; I10 Essential (primary) hypertension; E11.40 Type 2 diabetes mellitus with diabetic neuropathy, unspecified; E11.59 Type 2 diabetes mellitus with other circulatory complications; E11.21 Type 2 diabetes mellitus with diabetic nephropathy; Z88.1 Allergy status to other antibiotic agents; Z88.8 Allergy status to other drugs, medicaments and biological substances; Z79.4 Long term (current) use of insulin; I73.89 Other specified peripheral vascular diseases | CPT/HCPCS: 96365; 96366; 96375; A9270; G0463; J2405; J3370; J7050 ==

== ENCOUNTER 2021-03-11 08:14 | Day surgery (SDC) | payer MEDICARE, OTHER ==
[2021-03-11 08:50] LABS: Creatinine, Blood 0.81 mg/dL (0.60-1.20); Vancomycin, Trough 11.6 ug/mL (5.0-10.0)
== END 2021-03-11 10:05 | disposition home or self-care (01) ==
LOC: ATC 08:14
PROVIDERS: Nurse Practitioner Family
DX: E11.621 Type 2 diabetes mellitus with foot ulcer (principal); L97.526 Non-pressure chronic ulcer of other part of left foot with bone involvement without evidence of necrosis; L97.512 Non-pressure chronic ulcer of other part of right foot with fat layer exposed; J45.909 Unspecified asthma, uncomplicated; G47.30 Sleep apnea, unspecified; I25.10 Atherosclerotic heart disease of native coronary artery without angina pectoris; I10 Essential (primary) hypertension; E11.40 Type 2 diabetes mellitus with diabetic neuropathy, unspecified; E11.59 Type 2 diabetes mellitus with other circulatory complications; E11.21 Type 2 diabetes mellitus with diabetic nephropathy; Z88.1 Allergy status to other antibiotic agents; Z88.8 Allergy status to other drugs, medicaments and biological substances; Z79.4 Long term (current) use of insulin
CPT/HCPCS: 80202; 82565; 96365; 96366; 96375; J2405; J3370; J7050

== ENCOUNTER 2021-03-12 08:12 | Day surgery (SDC) | payer MEDICARE, OTHER | END 2021-03-12 10:05 | disposition home or self-care (01) | LOC: ATC 08:12 | DX: E11.621 Type 2 diabetes mellitus with foot ulcer (principal); L97.526 Non-pressure chronic ulcer of other part of left foot with bone involvement without evidence of necrosis; L97.512 Non-pressure chronic ulcer of other part of right foot with fat layer exposed; I10 Essential (primary) hypertension; I25.2 Old myocardial infarction; M06.9 Rheumatoid arthritis, unspecified; E11.40 Type 2 diabetes mellitus with diabetic neuropathy, unspecified; E11.51 Type 2 diabetes mellitus with diabetic peripheral angiopathy without gangrene; I25.10 Atherosclerotic heart disease of native coronary artery without angina pectoris; G47.30 Sleep apnea, unspecified; Z95.5 Presence of coronary angioplasty implant and graft; Z99.89 Dependence on other enabling machines and devices | CPT/HCPCS: 96365; 96366; 96375; J2405; J3370; J7050 ==

== ENCOUNTER 2021-03-13 02:29 | Day surgery (SDC) | payer MEDICARE, OTHER | END 2021-03-13 09:57 | disposition home or self-care (01) | LOC: ATC 02:29 | DX: E11.621 Type 2 diabetes mellitus with foot ulcer (principal); L97.526 Non-pressure chronic ulcer of other part of left foot with bone involvement without evidence of necrosis; L97.512 Non-pressure chronic ulcer of other part of right foot with fat layer exposed; J45.909 Unspecified asthma, uncomplicated; G47.30 Sleep apnea, unspecified; I25.10 Atherosclerotic heart disease of native coronary artery without angina pectoris; I10 Essential (primary) hypertension; I25.2 Old myocardial infarction; M06.9 Rheumatoid arthritis, unspecified; E11.51 Type 2 diabetes mellitus with diabetic peripheral angiopathy without gangrene; E11.40 Type 2 diabetes mellitus with diabetic neuropathy, unspecified; Z95.5 Presence of coronary angioplasty implant and graft; Z79.4 Long term (current) use of insulin; Z79.82 Long term (current) use of aspirin; Z88.1 Allergy status to other antibiotic agents; Z88.8 Allergy status to other drugs, medicaments and biological substances | CPT/HCPCS: 96365; 96366; 96375; J2405; J3370; J7050 ==

== ENCOUNTER 2021-03-14 04:29 | Day surgery (SDC) | payer MEDICARE, OTHER ==
[2021-03-14 09:28] LABS: Creatinine, Blood 0.85 mg/dL (0.60-1.20); Vancomycin, Trough 11.6 ug/mL (5.0-10.0)
== END 2021-03-14 09:53 | disposition home or self-care (01) ==
LOC: ATC 04:29
PROVIDERS: Nurse Practitioner Family
DX: E11.621 Type 2 diabetes mellitus with foot ulcer (principal); L97.512 Non-pressure chronic ulcer of other part of right foot with fat layer exposed; L97.526 Non-pressure chronic ulcer of other part of left foot with bone involvement without evidence of necrosis; E11.51 Type 2 diabetes mellitus with diabetic peripheral angiopathy without gangrene; E11.40 Type 2 diabetes mellitus with diabetic neuropathy, unspecified; E11.21 Type 2 diabetes mellitus with diabetic nephropathy; E11.69 Type 2 diabetes mellitus with other specified complication; J45.909 Unspecified asthma, uncomplicated; I10 Essential (primary) hypertension; I25.10 Atherosclerotic heart disease of native coronary artery without angina pectoris; M06.9 Rheumatoid arthritis, unspecified; I25.2 Old myocardial infarction; Z88.1 Allergy status to other antibiotic agents; Z88.8 Allergy status to other drugs, medicaments and biological substances; Z95.5 Presence of coronary angioplasty implant and graft; Z79.4 Long term (current) use of insulin
CPT/HCPCS: 80202; 82565; 96365; 96375; J2405; J3370; J7050

== ENCOUNTER 2021-03-15 00:02 | Day surgery (SDC) | payer MEDICARE, OTHER | END 2021-03-15 09:58 | disposition home or self-care (01) | LOC: ATC 00:02 | DX: E11.621 Type 2 diabetes mellitus with foot ulcer (principal); L97.526 Non-pressure chronic ulcer of other part of left foot with bone involvement without evidence of necrosis; L97.512 Non-pressure chronic ulcer of other part of right foot with fat layer exposed; S91.105D Unspecified open wound of left lesser toe(s) without damage to nail, subsequent encounter; S91.104D Unspecified open wound of right lesser toe(s) without damage to nail, subsequent encounter; X58.XXXD Exposure to other specified factors, subsequent encounter; I73.89 Other specified peripheral vascular diseases; E11.21 Type 2 diabetes mellitus with diabetic nephropathy | CPT/HCPCS: 96365; 96366; J2405; J3370; J7050 ==

== ENCOUNTER 2021-03-16 01:17 | Day surgery (SDC) | payer MEDICARE, OTHER | END 2021-03-16 10:25 | disposition home or self-care (01) | LOC: ATC 01:17 | DX: E11.621 Type 2 diabetes mellitus with foot ulcer (principal); L97.512 Non-pressure chronic ulcer of other part of right foot with fat layer exposed; L97.526 Non-pressure chronic ulcer of other part of left foot with bone involvement without evidence of necrosis; E11.51 Type 2 diabetes mellitus with diabetic peripheral angiopathy without gangrene; E11.21 Type 2 diabetes mellitus with diabetic nephropathy; E11.69 Type 2 diabetes mellitus with other specified complication; J45.909 Unspecified asthma, uncomplicated; I10 Essential (primary) hypertension; I25.2 Old myocardial infarction; E11.40 Type 2 diabetes mellitus with diabetic neuropathy, unspecified; M06.9 Rheumatoid arthritis, unspecified; L03.032 Cellulitis of left toe; Z88.1 Allergy status to other antibiotic agents; Z88.8 Allergy status to other drugs, medicaments and biological substances; Z79.4 Long term (current) use of insulin; Z95.5 Presence of coronary angioplasty implant and graft | CPT/HCPCS: 96365; 96366; 96375; J2405; J3370; J7050 ==

== ENCOUNTER 2021-03-17 00:21 | Day surgery (SDC) | payer MEDICARE, OTHER | END 2021-03-17 10:59 | disposition home or self-care (01) | LOC: ATC 00:21 | DX: E11.621 Type 2 diabetes mellitus with foot ulcer (principal); L97.526 Non-pressure chronic ulcer of other part of left foot with bone involvement without evidence of necrosis; L97.512 Non-pressure chronic ulcer of other part of right foot with fat layer exposed; L89.893 Pressure ulcer of other site, stage 3; J45.909 Unspecified asthma, uncomplicated; G47.30 Sleep apnea, unspecified; I25.10 Atherosclerotic heart disease of native coronary artery without angina pectoris; I10 Essential (primary) hypertension; I25.2 Old myocardial infarction; M06.9 Rheumatoid arthritis, unspecified; E11.40 Type 2 diabetes mellitus with diabetic neuropathy, unspecified; E11.51 Type 2 diabetes mellitus with diabetic peripheral angiopathy without gangrene; E11.21 Type 2 diabetes mellitus with diabetic nephropathy; Z95.5 Presence of coronary angioplasty implant and graft; Z88.1 Allergy status to other antibiotic agents; Z88.8 Allergy status to other drugs, medicaments and biological substances | CPT/HCPCS: 96365; 96375; J2405; J3370; J7050 ==

== ENCOUNTER 2021-03-17 00:31 | Day surgery (SDC) | payer MEDICARE, OTHER | END 2021-03-17 23:01 | disposition home or self-care (01) | LOC: WOUND 00:31 | DX: E11.621 Type 2 diabetes mellitus with foot ulcer (principal); L97.526 Non-pressure chronic ulcer of other part of left foot with bone involvement without evidence of necrosis; L97.512 Non-pressure chronic ulcer of other part of right foot with fat layer exposed; L89.893 Pressure ulcer of other site, stage 3; S91.104D Unspecified open wound of right lesser toe(s) without damage to nail, subsequent encounter; S91.105D Unspecified open wound of left lesser toe(s) without damage to nail, subsequent encounter; X58.XXXD Exposure to other specified factors, subsequent encounter; I73.89 Other specified peripheral vascular diseases; E11.59 Type 2 diabetes mellitus with other circulatory complications; E11.21 Type 2 diabetes mellitus with diabetic nephropathy | CPT/HCPCS: A9270 ==

== ENCOUNTER 2021-03-31 01:43 | Day surgery (SDC) | payer MEDICARE, OTHER | END 2021-03-31 12:00 | disposition home or self-care (01) | LOC: WOUND 01:43 | DX: E11.621 Type 2 diabetes mellitus with foot ulcer (principal); L97.522 Non-pressure chronic ulcer of other part of left foot with fat layer exposed; L97.519 Non-pressure chronic ulcer of other part of right foot with unspecified severity; S91.105D Unspecified open wound of left lesser toe(s) without damage to nail, subsequent encounter; X58.XXXD Exposure to other specified factors, subsequent encounter; I73.89 Other specified peripheral vascular diseases; E11.59 Type 2 diabetes mellitus with other circulatory complications; E11.21 Type 2 diabetes mellitus with diabetic nephropathy; J45.909 Unspecified asthma, uncomplicated; I10 Essential (primary) hypertension; I25.2 Old myocardial infarction; I25.10 Atherosclerotic heart disease of native coronary artery without angina pectoris; Z95.5 Presence of coronary angioplasty implant and graft; M06.9 Rheumatoid arthritis, unspecified | CPT/HCPCS: A9270; G0463 ==

== ENCOUNTER 2021-04-11 09:53 | Day surgery (SDC) | payer MEDICARE, OTHER ==
[~2021-04-11] VITALS: Ht 167.6 cm; Wt 114.3 kg
[~2021-04-11 09:53] MED LIST changes: +ALDACTONE100 MG PO; +Amaryl1 MG; +HUMIRA PEN40 MG/0.2 SQ; +IBUP100S PO; +LEVSOD100 PO; -LEVSOD150 PO; +VICODIN HP 10-1 EAC1 PO
--- NOTE | 2021-04-11 11:17 | NUR ---
BLOOD GLUCOSE CHECKED WITH PIV START. 102
--- NOTE | 2021-04-11 12:17 | NUR ---
PATIENT UPDATED ON WAIT TIME FOR PROCEDURE. WATCHING TV AND FREE TO GET UP TO THE RESTRROM NEEDED. CALL LIGHT IN REACH.
--- NOTE | 2021-04-11 15:50 | NUR ---
PATIENT RETURNED FROM THE CATHLAB AND SBAR RECEIVED FROM VENESSA ASH. RIGHT GROIN SITE CHECKED, ANGIOSEAL DEPLOYED AT 1525, SITE CDI, NO HEMATOMA, NO BLEEDING NOTED. PATIENT PLACED ON THE MONITOR AND NO PAIN NOTED FROM THE PATIENT. CALLED GRANDDAUGHTER AND UPDATED ON END OF PROCEDURE AND POTENTIAL DISCAHRGE TIME. ALL QUESTIONS ANSWERED.
[2021-04-11] MEDS ORDERED: CLOP75 PO (16:05)
--- NOTE | 2021-04-11 17:33 | NUR ---
patient resting n bed. right groin site soft and nontender.patient A&O
--- NOTE | 2021-04-11 18:33 | NUR ---
right groin site remains soft and nontender. patient verbalized understanding of discharge instructions and precautions. iv site dced with catheter in tact. patient transferred to waiting acr with and daughter. discharge instructions were given to them as well. there were no further questions.
== END 2021-04-11 18:00 | disposition home or self-care (01) ==
LOC: MHTC 09:53
DX: E11.51 Type 2 diabetes mellitus with diabetic peripheral angiopathy without gangrene (principal); I70.213 Atherosclerosis of native arteries of extremities with intermittent claudication, bilateral legs; E11.621 Type 2 diabetes mellitus with foot ulcer; L97.529 Non-pressure chronic ulcer of other part of left foot with unspecified severity; I25.10 Atherosclerotic heart disease of native coronary artery without angina pectoris; I11.0 Hypertensive heart disease with heart failure; I50.9 Heart failure, unspecified; E78.5 Hyperlipidemia, unspecified; E03.9 Hypothyroidism, unspecified; G47.33 Obstructive sleep apnea (adult) (pediatric); M06.9 Rheumatoid arthritis, unspecified; E66.9 Obesity, unspecified; Z68.41 Body mass index [BMI] 40.0-44.9, adult; Z85.46 Personal history of malignant neoplasm of prostate; Z88.6 Allergy status to analgesic agent; Z88.8 Allergy status to other drugs, medicaments and biological substances; Z88.1 Allergy status to other antibiotic agents; Z95.5 Presence of coronary angioplasty implant and graft; Z95.820 Peripheral vascular angioplasty status with implants and grafts; Z87.891 Personal history of nicotine dependence; Z79.4 Long term (current) use of insulin
CPT/HCPCS: 75716; 75774; 76937; 82947; 85347; 99152; 99153; C1725; C1769; C1885; C1887; C1894; C2623; C9764; C9772; C9774; J2250; J3010; J7030; J7050; Q9967

== ENCOUNTER 2021-05-08 03:10 | Day surgery (SDC) | payer MEDICARE, OTHER ==
[~2021-05-08 03:10] MED LIST changes: +CLOP75 PO
== END 2021-05-08 23:21 | disposition home or self-care (01) ==
LOC: WOUND 03:10
DX: E11.621 Type 2 diabetes mellitus with foot ulcer (principal); L97.512 Non-pressure chronic ulcer of other part of right foot with fat layer exposed; L97.522 Non-pressure chronic ulcer of other part of left foot with fat layer exposed; E11.51 Type 2 diabetes mellitus with diabetic peripheral angiopathy without gangrene; E11.21 Type 2 diabetes mellitus with diabetic nephropathy; I25.10 Atherosclerotic heart disease of native coronary artery without angina pectoris; I10 Essential (primary) hypertension; I25.2 Old myocardial infarction; M06.9 Rheumatoid arthritis, unspecified; E11.40 Type 2 diabetes mellitus with diabetic neuropathy, unspecified; E11.59 Type 2 diabetes mellitus with other circulatory complications; Z95.5 Presence of coronary angioplasty implant and graft
CPT/HCPCS: 73630; A9270

== ENCOUNTER 2021-05-19 01:19 | Day surgery (SDC) | payer MEDICARE, OTHER ==
[2021-05-24] MEDS ORDERED: ALLO100 PO (11:16)
[2021-05-24] MEDS ORDERED: Aspir 8181 MG PO (11:17)
[2021-05-24] MEDS ORDERED: DICLOFENAC SOD100 GM TOP (11:19)
[2021-05-24] MEDS ORDERED: ONDA4ODT MM (11:23)
[2021-05-24] MEDS ORDERED: NASACORT10.8 ML (11:25)
== END 2021-05-19 23:15 | disposition home or self-care (01) ==
LOC: WOUND 01:19
DX: E11.621 Type 2 diabetes mellitus with foot ulcer (principal); L97.512 Non-pressure chronic ulcer of other part of right foot with fat layer exposed; L97.522 Non-pressure chronic ulcer of other part of left foot with fat layer exposed; E11.52 Type 2 diabetes mellitus with diabetic peripheral angiopathy with gangrene; L89.893 Pressure ulcer of other site, stage 3; I96 Gangrene, not elsewhere classified; S92.911A Unspecified fracture of right toe(s), initial encounter for closed fracture; J45.909 Unspecified asthma, uncomplicated; I25.10 Atherosclerotic heart disease of native coronary artery without angina pectoris; I12.9 Hypertensive chronic kidney disease with stage 1 through stage 4 chronic kidney disease, or unspecified chronic kidney disease; N18.9 Chronic kidney disease, unspecified; E11.22 Type 2 diabetes mellitus with diabetic chronic kidney disease; E11.40 Type 2 diabetes mellitus with diabetic neuropathy, unspecified; E11.51 Type 2 diabetes mellitus with diabetic peripheral angiopathy without gangrene; E11.21 Type 2 diabetes mellitus with diabetic nephropathy; E11.59 Type 2 diabetes mellitus with other circulatory complications; I25.2 Old myocardial infarction; Z88.8 Allergy status to other drugs, medicaments and biological substances; Z88.1 Allergy status to other antibiotic agents; Z95.5 Presence of coronary angioplasty implant and graft; X58.XXXA Exposure to other specified factors, initial encounter
CPT/HCPCS: A9270; G0463

== ENCOUNTER → 2021-05-23 | Outpatient (CLI) | payer MEDICARE, OTHER ==
[~2021-05-23] MED LIST changes: +ALLO100 PO; +Aspir 8181 MG PO; +DICLOFENAC SOD100 GM TOP; +NASACORT10.8 ML; +ONDA4ODT MM
[2021-05-23 12:20] LABS: BASOPHILS ABSOLUTE AUTO 0.09 K/mm3 (0.00-0.23); BASOPHILS PERCENT AUTO 1 % (0-2); EOSINOPHILS PERCENT AUTO 6 % (0-6); Hematocrit 37.5 % (37.0-53.0); IMMATURE GRAN ABSOLUTE AUTO 0.09 K/mm3 (0.00-0.10); IMMATURE GRAN PERCENT AUTO 1 % (0-1); LYMPHOCYTES ABSOLUTE AUTO 2.33 K/mm3 (0.84-5.20); LYMPHOCYTES PERCENT AUTO 26 % (21-46); MONOCYTES ABSOLUTE AUTO 0.67 K/mm3 (0.16-1.47); MONOCYTES PERCENT AUTO 7 % (4-13); Mean Corpuscular HGB 30.5 pg (26.0-34.0); Mean Corpuscular Volume 95 fL (80-100); Mean Platelet Volume 9.6 fL (9.1-12.4); NEUTROPHILS ABSOLUTE AUTO 5.43 K/mm3 (1.96-9.15); NEUTROPHILS PERCENT AUTO 60 % (41-73); Platelet Count 359 K/mm3 (150-400); RDW Coefficient Variation 15.2 % (11.7-14.2); RDW Standard Deviation 51.9 fL (35.1-46.3); Red Blood Cell Count 3.94 M/mm3 (4.30-5.90); White Blood Cell Count 9.11 K/mm3 (4.00-11.30)
[2021-05-23 12:32] LABS: Anion Gap 4 mmol/L (6-16); Blood Urea Nitrogen 14 mg/dL (8-24); Bun/Creatinine Ratio 14.7 (12.0-20.0); CO2, Blood 30 mmol/L (21-32); Calcium, Blood 8.6 mg/dL (8.5-10.1); Chloride, Blood 105 mmol/L (98-108); Creatinine, Blood 0.95 mg/dL (0.60-1.20); Glomerular Filtration Rate >60 (60-); Glucose, Blood 128 mg/dL (70-99); Potassium, Blood 3.8 mmol/L (3.5-5.5); Sodium, Blood 139 mmol/L (136-145)
== END | disposition home or self-care (01) ==
LOC: LAB 10:38 → LAB SHORT 10:38
PROVIDERS: Podiatrist Foot & Ankle Surgery
DX: Z01.812 Encounter for preprocedural laboratory examination (principal); M86.9 Osteomyelitis, unspecified
CPT/HCPCS: 36415; 80048; 83036; 85025

== ENCOUNTER 2021-05-26 10:59 | Day surgery (SDC) | payer MEDICARE, OTHER ==
[~2021-05-26] VITALS: Ht 167.6 cm; Wt 110.0 kg
--- NOTE | 2021-05-26 12:03 | NUR ---
History, Chart, Medications and Allergies reviewed before start of procedure.Lungs clear T/O to Auscultation. Patient confirms NPO status and agrees with scheduled surgery. Patient reports completing Chlorhexadine shower X2 prior to admission to hospital.ALL BELONINGS PLACED IN BAG UNDER BED WITH ID ON CANE. PT STATES TEETH ARE OUT IN THE CARE WITH .
--- NOTE | 2021-05-26 15:08 | NUR ---
4819 PT DISCHARGED TO AND GRAND DAUGHTER Discharge instructions reviewed with patient. Patient verbalizes understanding. Copy given to patient to take home. Dressing to procedure site clean, dry, intact with no visible drainage, swelling, erythema or bruising noted. Discharged via wheelchair to private car for ride home. Patient States Post-Procedure ride home has been arranged.IV DCD PT FAMILY GIVEN DETAILED DISCHARGE INSTRUCTIONS AND FAMILY AWARE OF FOLLOW UP APPOINTMENT TO TO FOLLOW STRICT INSTRUCTIONS UNTIL FOLLOW UP APPT.
== END 2021-05-26 23:27 | disposition home or self-care (01) ==
LOC: ORSCMMR 10:59 → ORD 13:15 → ORSCMMR 13:15
PROVIDERS: Podiatrist Foot & Ankle Surgery
PROC: 0Y6S0Z0 Detachment at Left 2nd Toe, Complete, Open Approach (ICD-10-PCS; principal; 2021-05-26 13:15)
DX: M86.172 Other acute osteomyelitis, left ankle and foot (principal); I10 Essential (primary) hypertension; I25.10 Atherosclerotic heart disease of native coronary artery without angina pectoris; E11.9 Type 2 diabetes mellitus without complications; E03.9 Hypothyroidism, unspecified; G47.33 Obstructive sleep apnea (adult) (pediatric); I25.2 Old myocardial infarction; E66.01 Morbid (severe) obesity due to excess calories; Z68.39 Body mass index [BMI] 39.0-39.9, adult; J44.9 Chronic obstructive pulmonary disease, unspecified; Z87.891 Personal history of nicotine dependence; Z79.899 Other long term (current) drug therapy; Z79.84 Long term (current) use of oral hypoglycemic drugs; Z79.82 Long term (current) use of aspirin; Z79.02 Long term (current) use of antithrombotics/antiplatelets; Z79.01 Long term (current) use of anticoagulants; Z85.46 Personal history of malignant neoplasm of prostate
CPT/HCPCS: 82947; 88305; J0171; J0690; J2370; J2405; J2704; J2765; J3010; J7120

== ENCOUNTER 2022-07-12 17:22 | Inpatient (IN) | payer MEDICARE, OTHER ==
[~2022-07-12] VITALS: Ht 165.1 cm; Wt 111.3 kg
[2022-07-12 18:07] LABS: BASOPHILS ABSOLUTE AUTO 0.06 K/mm3 (0.00-0.23); BASOPHILS PERCENT AUTO 1 % (0-2); EOSINOPHILS ABSOLUTE AUTO 0.11 K/mm3 (0.00-0.68); EOSINOPHILS PERCENT AUTO 1 % (0-6); Hematocrit 42.2 % (37.0-53.0); Hemoglobin 13.6 g/dL (13.5-17.5); IMMATURE GRAN ABSOLUTE AUTO 0.07 K/mm3 (0.00-0.10); IMMATURE GRAN PERCENT AUTO 1 % (0-1); LYMPHOCYTES ABSOLUTE AUTO 1.07 K/mm3 (0.84-5.20); LYMPHOCYTES PERCENT AUTO 9 % (21-46); MONOCYTES ABSOLUTE AUTO 0.67 K/mm3 (0.16-1.47); MONOCYTES PERCENT AUTO 6 % (4-13); Mean Corpuscular HGB 30.4 pg (26.0-34.0); Mean Corpuscular HGB Conc 32.2 g/dL (31.5-36.5); Mean Corpuscular Volume 94 fL (80-100); Mean Platelet Volume 9.9 fL (9.1-12.4); NEUTROPHILS ABSOLUTE AUTO 10.11 K/mm3 (1.96-9.15); NEUTROPHILS PERCENT AUTO 84 % (41-73); Platelet Count 314 K/mm3 (150-400); RDW Coefficient Variation 15.6 % (11.7-14.2); RDW Standard Deviation 53.5 fL (35.1-46.3); Red Blood Cell Count 4.48 M/mm3 (4.30-5.90); White Blood Cell Count 12.09 K/mm3 (4.00-11.30)
[2022-07-12 18:37] LABS: Albumin, Blood 3.3 g/dL (3.4-5.0); Albumin/Globulin Ratio 0.7 (0.8-1.8); Bilirubin, Total 0.5 mg/dL (0.1-1.0); Bun/Creatinine Ratio 19.5 (12.0-20.0); Calcium, Blood 9.2 mg/dL (8.5-10.1); Creatinine, Blood 0.97 mg/dL (0.60-1.20); Globulin, Blood 4.9 g/dL (2.2-4.0); Potassium, Blood 4.8 mmol/L (3.5-5.5); Total Protein, Blood 8.2 g/dL (6.4-8.2)
[2022-07-12 20:13] LABS: CHOL/HDL RATIO 2.1; Cholesterol 138 mg/dL (50-200); HDL Cholesterol 67 mg/dL (>39); LDL/HDL RATIO 0.7; Low Density Lipoprotein Chol 47 mg/dL (0-110); Triglycerides 121 mg/dL (30-160); Very Low Density Lipoprot Chol 24 mg/dL (6-32)
[2022-07-12 20:30] LABS: International Normalized Ratio 1.08; Prothrombin Time Results 11.3 Sec (9.7-11.5)
[2022-07-13 04:31] LABS: BASOPHILS PERCENT AUTO 1 % (0-2); EOSINOPHILS ABSOLUTE AUTO 0.33 K/mm3 (0.00-0.68); EOSINOPHILS PERCENT AUTO 3 % (0-6); Hematocrit 35.4 % (37.0-53.0); Hemoglobin 11.7 g/dL (13.5-17.5); IMMATURE GRAN ABSOLUTE AUTO 0.06 K/mm3 (0.00-0.10); IMMATURE GRAN PERCENT AUTO 1 % (0-1); LYMPHOCYTES ABSOLUTE AUTO 2.68 K/mm3 (0.84-5.20); LYMPHOCYTES PERCENT AUTO 23 % (21-46); MONOCYTES ABSOLUTE AUTO 0.96 K/mm3 (0.16-1.47); MONOCYTES PERCENT AUTO 8 % (4-13); Mean Corpuscular HGB 30.5 pg (26.0-34.0); Mean Corpuscular HGB Conc 33.1 g/dL (31.5-36.5); Mean Corpuscular Volume 92 fL (80-100); Mean Platelet Volume 9.4 fL (9.1-12.4); NEUTROPHILS ABSOLUTE AUTO 7.65 K/mm3 (1.96-9.15); NEUTROPHILS PERCENT AUTO 65 % (41-73); Platelet Count 290 K/mm3 (150-400); RDW Coefficient Variation 15.3 % (11.7-14.2); RDW Standard Deviation 51.6 fL (35.1-46.3); Red Blood Cell Count 3.84 M/mm3 (4.30-5.90); White Blood Cell Count 11.78 K/mm3 (4.00-11.30)
[2022-07-13 04:47] LABS: Bun/Creatinine Ratio 16.3 (12.0-20.0); Calcium, Blood 8.5 mg/dL (8.5-10.1); Creatinine, Blood 1.04 mg/dL (0.60-1.20); Potassium, Blood 3.3 mmol/L (3.5-5.5)
--- NOTE | 2022-07-13 06:20 | NUR ---
NEW PT ADMIT TO ICU 9/ SHIFT SUMMARY: NEW ER ADMIT TO ICU 9 ARRIVED TO UNIT AT 2228. PT ARRIVES WITH AFIB RVR WITH HR IN THE 140-160'S AND HYPERTENSIVE WITH SBP 150-160'S. PT HAS MINIMAL C/O CHEST PAIN AT THIS TIME RATING 1/10. PT ON RA ON ARRIVAL AND HAS NO C/O SOB. PT C/O PAIN IN HIS R. HIP RATING 8/10 PAIN, STATES THIS IS CHRONIC. PT IS A&O X 4 AND INDEPENDENT WITH BED MOBILITY. PT ARRIVED TO THE UNIT WITH HEPARIN GTT @ 15 UNITS/HR. ORDERS FOR CARDIZEM GTT AND NITRO GTT RECIEVED WHEN PT WAS IN ER; MEDS ARRIVED TO ICU SHORTLY AFTER PT SETTLED INTO ROOM. CURRENTLY CARDIZEM GTT @ 5 MG, NITRO GTT 10 MCG, AND HEPARIN 16 UNITS/HR. PT HAS BEEN RESTING THROUGHOUT THE NIGHT BUT UNABLE TO SLEEP BECAUSE OF NEUROPATHIC PAIN IN BLE. PT USES CPAP AT NIGHT AND WORE IT FOR THE REST OF THE NIGHT ONCE ARRIVING TO THE UNIT. LUNG SOUNDS HAVE BEEN CLEAR T/O WITH DIM BASES; SPO2 96<, AND RR 16-18. PT HAS HYPOACTIVE BS IN ALL FOUR QUADRANTS; ABD OBESE, SOFT. PT HAS NO C/O N/V. PT USING URINAL IN BED FOR VOIDING. PT AM LABS BACK WITH POTASSIUM LOW; PT RECIEVING SUPPLEMENTATION THIS SHIFT. PPP X 4, WARM EXTREMITIES. PT USING CALL LIGHT APPROPRIATELY. WILL CONTINUE TO MONITOR UNTIL ONCOMING RN ARRIVES.
[2022-07-13 09:41] LABS: SARS-Cov-2 (COVID-19) PCR, MMC NEGATIVE (NEGATIVE)
--- NOTE | 2022-07-13 10:55 | NUR ---
PT A/O X4. DENIES CP OR PRESSURE, DENIES SOB AND N/V. NITRO TURNED OFF THIS AM. C/O PAIN IN HIPS FROM RA. GAVE SCHEDULED OXYCONTIN. PT INITIALLY DECLINED IV FENTANYL BUT AFTER ARRIVED HE AGREED TO TRY A DOSE. PT IS NOT WRITHING IN PAIN NOW. ECHO DONE. DR. MARQUES IN THIS AM TO SEE PT. PT WILL BE GOING TO THE ANALYTICAL DATA SCIENTIST TODAY. HEPARIN GTT AND CARDIZEM GTT TURNED OFF PER ORDERS. AND GRANDAUGHTER AT BEDSIDE UPDATED.
--- NOTE | 2022-07-13 11:08 | NUR ---
PT TAKEN TO PROFESSOR OF APOLOGETICS
--- NOTE | 2022-07-13 13:33 | NUR ---
PT BACK FROM [facility]. R GROIN ACCESS SITE IS STABLE. DR. MARQUES AT BEDSIDE TO UPDATE FAMILY. PT WILL NEED TO BE TRANSFERED FOR BYPASS SURGERY. PRENATAL GENETIC COUNSELOR HAS BEEN CALLING FOR BED AVAILABILITY T/O [place]. PT AND FAMILY TEARFUL, SPIRITUAL CARE CONSULT PLACED.
--- NOTE | 2022-07-13 14:18 | NUR ---
"Spiritual Care Consult| Referral by Juan Carlos Baker DO Pt. is awake in bed. Spouse is present and they welcome my visit. Pt. had been notified that he will be having by-pass surgery and will be transported to [place]. Pt. is distressed because of the news of the surgery, and because of the recent loss of several family members. Listen theraputically with a calming presence. The Pt. and spouse fondly remember the influence of Director Global Strategic Publisher Salesalex Aguillon from a previous hospitalization. Establish rapport. Pt. displays evidence of lessoned axiety. Prayed with Pt. and spouse. Spouse and Pt. verbalize gratitude for the spiritual care visit. Will remain available to the family."
--- NOTE | 2022-07-13 16:30 | NUR ---
BED AVAILABLE AT [facility]. REPORT GIVEN TO LUIZ CLIFFORD. FAMILY INFORMED OF TRANSFER. EMS WILL BE HERE IN ABOUT AN HOUR. PT RESTING COMFORTABLEY.
--- NOTE | 2022-07-13 17:51 | NUR ---
PT TAKEN [facility]IA [facility] AT 1730 TO [facility] BAKER. R GROIN SITE STABLE. ACCOMPANIES PT AND EMS OUT OF THE UNIT. PT IS A/O X4. NO SIGN OF DISTRESS.
== END 2022-07-13 17:41 | disposition short-term general hospital (02) | DRG 280 ==
LOC: ER 17:22 → ICUW 19:36 → PCU 19:36 → ICUW 22:01
PROVIDERS: Emergency Medicine; Internal Medicine Cardiovascular Disease; ADMIT Family Medicine
PROC: B2111ZZ Fluoroscopy of Multiple Coronary Arteries using Low Osmolar Contrast (ICD-10-PCS; principal; 2022-07-13)
DX: I21.4 Non-ST elevation (NSTEMI) myocardial infarction (principal); I50.33 Acute on chronic diastolic (congestive) heart failure; M06.9 Rheumatoid arthritis, unspecified; G47.33 Obstructive sleep apnea (adult) (pediatric); E03.9 Hypothyroidism, unspecified; I10 Essential (primary) hypertension; F32.A Depression, unspecified; I48.0 Paroxysmal atrial fibrillation; I25.10 Atherosclerotic heart disease of native coronary artery without angina pectoris; E78.5 Hyperlipidemia, unspecified; E11.9 Type 2 diabetes mellitus without complications; D72.829 Elevated white blood cell count, unspecified; J44.9 Chronic obstructive pulmonary disease, unspecified; K21.9 Gastro-esophageal reflux disease without esophagitis; E66.9 Obesity, unspecified; Z88.0 Allergy status to penicillin; Z79.01 Long term (current) use of anticoagulants; Z88.1 Allergy status to other antibiotic agents; Z91.014 Allergy to mammalian meats; Z79.899 Other long term (current) drug therapy; Z79.4 Long term (current) use of insulin; Z79.84 Long term (current) use of oral hypoglycemic drugs; Z79.82 Long term (current) use of aspirin; Z79.02 Long term (current) use of antithrombotics/antiplatelets; Z99.81 Dependence on supplemental oxygen; Z90.49 Acquired absence of other specified parts of digestive tract; Z95.5 Presence of coronary angioplasty implant and graft; Z98.890 Other specified postprocedural states
CPT/HCPCS: 36415; 71046; 80048; 80053; 80061; 83690; 83880; 84484; 85025; 85610; 85730; 90686; 93005; 93010; 93306; 93454; 93880; 94640; 94660; 94664; 94762; 99152; 99153; A9270; C1769; C1887; C1894; G0008; J1200; J1644; J1720; J1940; J2250; J3010; J3480; J7030; J7050; Q9967; U0004

== ENCOUNTER 2023-04-15 13:42 | Emergency (ER) | payer MEDICARE, OTHER ==
[~2023-04-15] VITALS: Ht 167.6 cm; Wt 104.3 kg
[2023-04-15 13:48] VITALS: BP 130/72
[2023-04-15 14:15] LABS: BASOPHILS ABSOLUTE AUTO 0.06 K/mm3 (0.00-0.23); BASOPHILS PERCENT AUTO 1 % (0-2); EOSINOPHILS ABSOLUTE AUTO 0.32 K/mm3 (0.00-0.68); EOSINOPHILS PERCENT AUTO 3 % (0-6); Hematocrit 36.7 % (37.0-53.0); Hemoglobin 12.1 g/dL (13.5-17.5); IMMATURE GRAN ABSOLUTE AUTO 0.14 K/mm3 (0.00-0.10); IMMATURE GRAN PERCENT AUTO 1 % (0-1); LYMPHOCYTES ABSOLUTE AUTO 1.25 K/mm3 (0.84-5.20); LYMPHOCYTES PERCENT AUTO 11 % (21-46); MONOCYTES ABSOLUTE AUTO 1.13 K/mm3 (0.16-1.47); MONOCYTES PERCENT AUTO 10 % (4-13); Mean Corpuscular HGB 28.7 pg (26.0-34.0); Mean Corpuscular Volume 87 fL (80-100); Mean Platelet Volume 9.2 fL (9.1-12.4); NEUTROPHILS ABSOLUTE AUTO 8.14 K/mm3 (1.96-9.15); NEUTROPHILS PERCENT AUTO 74 % (41-73); Platelet Count 350 K/mm3 (150-400); RDW Coefficient Variation 15.7 % (11.7-14.2); RDW Standard Deviation 49.6 fL (35.1-46.3); Red Blood Cell Count 4.21 M/mm3 (4.30-5.90); White Blood Cell Count 11.04 K/mm3 (4.00-11.30)
[2023-04-15 14:20] LABS: Source, Urine Clean Catch
[2023-04-15 14:29] LABS: Appearance, Urine Clear (Clear); Bilirubin, Urine Neg (Neg); Blood, Urine 1+ (Neg); Color, Urine Amber (P-Yellow); Glucose Qualitative, Urine Neg (Neg); Ketones, Urine Neg (Neg); Leukocyte Esterase, Urine 1+ (Neg); Nitrite, Urine Neg (Neg); Protein, Urine 4+ (Neg); Urobilinogen, Urine 2+ (Normal)
[2023-04-15 14:56] LABS: Albumin, Blood 2.5 g/dL (3.4-5.0); Albumin/Globulin Ratio 0.5 (0.8-1.8); Bilirubin, Total 0.8 mg/dL (0.1-1.0); Bun/Creatinine Ratio 19.3 (12.0-20.0); Creatinine, Blood 1.09 mg/dL (0.60-1.20); Globulin, Blood 5.1 g/dL (2.2-4.0); Potassium, Blood 4.4 mmol/L (3.5-5.5); Total Protein, Blood 7.6 g/dL (6.4-8.2)
[2023-04-15 15:15] LABS: Bacteria Many /hpf; Squamous Epithelial Cells Rare /hpf (Few)
[2023-04-15 15:16] LABS: Mucus Light (0-Heavy)
[2023-04-15] MEDS ORDERED: Bactrim Ds Tab1 EACH PO (15:40)
== END 2023-04-15 15:49 | disposition home or self-care (01) ==
LOC: ER 13:42
PROVIDERS: Student in an Organized Health Care Education/Training Program
DX: N39.0 Urinary tract infection, site not specified (principal); Z88.8 Allergy status to other drugs, medicaments and biological substances; Z88.1 Allergy status to other antibiotic agents; Z91.041 Radiographic dye allergy status; Z79.899 Other long term (current) drug therapy; Z79.4 Long term (current) use of insulin; Z79.84 Long term (current) use of oral hypoglycemic drugs; Z79.82 Long term (current) use of aspirin; M06.9 Rheumatoid arthritis, unspecified; I48.91 Unspecified atrial fibrillation; G47.33 Obstructive sleep apnea (adult) (pediatric); E03.9 Hypothyroidism, unspecified; I10 Essential (primary) hypertension; E11.9 Type 2 diabetes mellitus without complications
CPT/HCPCS: 80053; 81001; 85025; 87086; 99283; A9270

== ENCOUNTER 2023-08-15 21:28 | Inpatient (IN) | payer MEDICARE, OTHER ==
[~2023-08-15] VITALS: Ht 162.6 cm; Wt 74.1 kg
[~2023-08-15 21:28] MED LIST changes: -ATOR80 PO; +Bactrim Ds Tab1 EACH PO; +LIPITOR80 MG PO
[2023-08-15 21:56] LABS: BASOPHILS ABSOLUTE AUTO 0.07 K/mm3 (0.00-0.23); BASOPHILS PERCENT AUTO 1 % (0-2); EOSINOPHILS ABSOLUTE AUTO 0.15 K/mm3 (0.00-0.68); EOSINOPHILS PERCENT AUTO 1 % (0-6); Hemoglobin 12.4 g/dL (13.5-17.5); IMMATURE GRAN ABSOLUTE AUTO 0.06 K/mm3 (0.00-0.10); IMMATURE GRAN PERCENT AUTO 1 % (0-1); LYMPHOCYTES ABSOLUTE AUTO 1.06 K/mm3 (0.84-5.20); LYMPHOCYTES PERCENT AUTO 9 % (21-46); MONOCYTES ABSOLUTE AUTO 0.57 K/mm3 (0.16-1.47); MONOCYTES PERCENT AUTO 5 % (4-13); Mean Corpuscular HGB 30.5 pg (26.0-34.0); Mean Corpuscular HGB Conc 32.6 g/dL (31.5-36.5); Mean Corpuscular Volume 93 fL (80-100); Mean Platelet Volume 10.3 fL (9.1-12.4); NEUTROPHILS ABSOLUTE AUTO 9.82 K/mm3 (1.96-9.15); NEUTROPHILS PERCENT AUTO 84 % (41-73); Platelet Count 295 K/mm3 (150-400); RDW Coefficient Variation 14.5 % (11.7-14.2); RDW Standard Deviation 49.8 fL (35.1-46.3); Red Blood Cell Count 4.07 M/mm3 (4.30-5.90); White Blood Cell Count 11.73 K/mm3 (4.00-11.30)
[2023-08-15 22:21] LABS: Source, Urine Voided
[2023-08-15 22:33] LABS: Influenza A, PCR NEGATIVE (NEGATIVE); Influenza B, PCR NEGATIVE (NEGATIVE); Resp Syncytial Virus, PCR NEGATIVE (NEGATIVE)
[2023-08-15 22:53] LABS: Albumin, Blood 2.8 g/dL (3.4-5.0); Albumin/Globulin Ratio 0.6 (0.8-1.8); Bilirubin, Total 0.7 mg/dL (0.1-1.0); Bun/Creatinine Ratio 16.2 (12.0-20.0); Calcium, Blood 8.5 mg/dL (8.5-10.1); Creatinine, Blood 0.93 mg/dL (0.60-1.20); Globulin, Blood 4.6 g/dL (2.2-4.0); Total Protein, Blood 7.4 g/dL (6.4-8.2)
[2023-08-15 22:58] LABS: Bilirubin, Urine Neg (Neg); Blood, Urine 2+ (Neg); Glucose Qualitative, Urine Neg (Neg); Ketones, Urine 1+ (Neg); Leukocyte Esterase, Urine Neg (Neg); Nitrite, Urine Neg (Neg); Protein, Urine 4+ (Neg); Specific Gravity, Urine 1.015 (1.003-1.022); Urobilinogen, Urine NORM (Normal)
[2023-08-15 23:10] LABS: Appearance, Urine Clear (Clear); Color, Urine Yellow (P-Yellow)
[2023-08-15 23:12] LABS: Bacteria Mod /hpf; Red Blood Cells, Urine 0-2 /hpf (0-2); Squamous Epithelial Cells Few /hpf (Few); White Blood Cells, Urine 0-2 /hpf (0-5)
[2023-08-15 23:33] LABS: Base Excess Venous -0.9 mmol/L; Bicarbonate Venous 23.6 mmol/L (24.0-30.0); PCO2 Venous 36.3 mmHg (38-42); pH Blood Venous 7.42 (7.34-7.37)
[2023-08-15 23:39] LABS: Magnesium, Blood 1.7 mg/dL (1.6-2.4); Phosphorus, Blood 2.6 mg/dL (2.5-4.9); Thyroid Stimulating Hormone 0.615 uIU/mL (0.360-4.800)
[2023-08-15 23:59] LABS: U Amphetamine Screen Not Detected; U Barbituate Screen Not Detected; U Benzodiazapine Screen Not Detected; U Cannabinoids Screen Not Detected; U Cocaine Screen Not Detected; U Methadone Screen Not Detected; U Methamphetamine Screen Not Detected; U Opiates Screen DETECTED; U Oxycodone Screen DETECTED; U Phencyclidine Screen Not Detected
[2023-08-16] VITALS (8 sets, daily range): BP systolic 115–152; BP diastolic 89–135
[2023-08-16] LABS: U Buprenorphine Screen Not Detected
[2023-08-16 00:02] LABS: SARS-Cov-2 (COVID-19) PCR, MMC POSITIVE (NEGATIVE)
[2023-08-16 00:08] LABS: International Normalized Ratio 1.2; Prothrombin Time Results 12.5 Sec (9.7-11.5)
[2023-08-16 04:17] LABS: BASOPHILS ABSOLUTE AUTO 0.07 K/mm3 (0.00-0.23); BASOPHILS PERCENT AUTO 1 % (0-2); EOSINOPHILS ABSOLUTE AUTO 0.03 K/mm3 (0.00-0.68); EOSINOPHILS PERCENT AUTO 0 % (0-6); Hematocrit 38.3 % (37.0-53.0); Hemoglobin 12.4 g/dL (13.5-17.5); IMMATURE GRAN ABSOLUTE AUTO 0.07 K/mm3 (0.00-0.10); IMMATURE GRAN PERCENT AUTO 1 % (0-1); LYMPHOCYTES ABSOLUTE AUTO 1.02 K/mm3 (0.84-5.20); LYMPHOCYTES PERCENT AUTO 9 % (21-46); MONOCYTES ABSOLUTE AUTO 0.75 K/mm3 (0.16-1.47); MONOCYTES PERCENT AUTO 6 % (4-13); Mean Corpuscular HGB 30.2 pg (26.0-34.0); Mean Corpuscular HGB Conc 32.4 g/dL (31.5-36.5); Mean Corpuscular Volume 93 fL (80-100); Mean Platelet Volume 9.5 fL (9.1-12.4); NEUTROPHILS ABSOLUTE AUTO 9.89 K/mm3 (1.96-9.15); NEUTROPHILS PERCENT AUTO 84 % (41-73); Platelet Count 288 K/mm3 (150-400); RDW Coefficient Variation 14.3 % (11.7-14.2); RDW Standard Deviation 48.5 fL (35.1-46.3); White Blood Cell Count 11.83 K/mm3 (4.00-11.30)
--- NOTE | 2023-08-16 04:52 | NUR ---
TRANSFER NOTE/SHIFT SUMMARY THIS RN RECEIVED REPORT FROM PERLA CLIFFORD IN THE ED VIA PHONE. PT TRANSFERRED TO PCU 14 AT 0230. ENHANCED PRECAUTIONS FOR COVID IN PLACE. PT ON 3L VIA NC AT ARRIVAL TO MAINTAIN SPO2 >92%. HTN NOTED AT ARRIVAL. AFIB WITH HR 120'S AT REST. PT DENIES CHEST PAIN/PRESSURE. AFEBRILE. PT A&O X4. APPEARS FORGETFUL AND IS A POOR HISTORIAN. NEED REINFORCEMENT OF EDUCATION AND PLAN OF CARE. EDUCATED ON BEDREST D/T HR, SOB, AND WEAKNESS. HOLDEN. LS DIM T/I. RR 20-30'S. BS+. CONDOM CATH IN PLACE D/T PATIENT WITH INCREASED SOB WHILE ATTEMPTING TO USE URINAL. MEPILEX PLACED ON COCCYX FOR BLANCHABLE REDNESS. PT ABLE TO REPOSITION SELF IN BED. PT WITH REPORTED RESTLESS LEGS, HEELS SOFT TO TOUCH, BILAT HEEL MEPILEX PLACED. EXCORIATION NOTED IN LEFT ABD/DION FOLDS; CLEANED/DRIED, POWDER AND PILLOW CASE APPLIED. SEE CHART FOR PHOTO OF WOUND ON RT CHEST WALL FROM PREVIOUS DEVICE PLACEMENT; WOUND CLEANSED AND DRESSED; SEROSANGIUNOUS DRAINAGE NOTED. SINCE ARRIVAL TO UNIT PT HAS SET BED ALARM OFF X1 WITH LEGS NOTED TO BE OUT OF THE BED. PT LETHARGIC BUT EASILY AROUSABLE. PLACED ON CPAP WITH 2L BLEED IN. BP STABLE. NO OTHER CHANGES TO VITALS. PT CONTINUES TO BE FORGETFUL AND DOES NOT CALL APPROPRIATELY. FREQUENT CHECKS FOR SAFETY. BED ALARM ON. BED IN LOWEST POSITION AND CALL LIGHT WITHIN REACH. THIS RN WILL REPORT TO DOMINGO COLEMAN RN
[2023-08-16 05:22] LABS: Albumin, Blood 2.7 g/dL (3.4-5.0); Albumin/Globulin Ratio 0.6 (0.8-1.8); Bilirubin, Total 0.7 mg/dL (0.1-1.0); Bun/Creatinine Ratio 17.6 (12.0-20.0); Calcium, Blood 8.7 mg/dL (8.5-10.1); Creatinine, Blood 1.02 mg/dL (0.60-1.20); Globulin, Blood 4.8 g/dL (2.2-4.0); Potassium, Blood 3.8 mmol/L (3.5-5.5); Total Protein, Blood 7.5 g/dL (6.4-8.2)
--- NOTE | 2023-08-16 08:42 | NUR ---
AM NOTE PT ALERT AND ORIENTED X 4, THIS RN ASSISTED PT IN PLACING NC AND TAKING OFF CPAP, SPO2 >95% VIA 3L NC. HE WAS ASSISTED TO BOOST IN BED DUE TO INCREASED WEAKNESS. HR 112 PER TELE MONITORING, BP STABLE, HE TOOK HIS PILLS W/ NO PROBLEM. HE DENIES FEELINGS OF CP/PRESSURE. CONDOM CATHETER IS IN PLACE, BED ALARM IS ON. CALL LIGHT W/IN REACH.
[2023-08-16] MEDS ORDERED: HYDACE10B PO (09:08)
[2023-08-16] MEDS ORDERED: CARV25 PO (16:08)
--- NOTE | 2023-08-16 17:41 | NUR ---
SHIFT SUMMARY PT IS ALERT AND ORIENTED X 4, HE IS ABLE TO MAKE HIS NEEDS KNOWN BUT IS A POOR HISTORIAN IT PERTAINS TO HIS HEALTH/MEDICAL CARE. HE HAS BEEN A SBA W/ FWW TO BATHROOM AND APPEARS STEADY ON HIS FEET. BP AND HR HAVE BEEN STABLE, PER TELE MONITORING HR IS AFIB 100-110'S AND HAS INCREASES W/ ACTIVITY TO 130 BUT DOES NOT SUSTAIN. HE HAS DENIED FEELINGS OF CHEST PAIN/PRESSURE BUT REPORTS DYSPNEA W/ EXERTION. SPO2 IS >95% VIA ROOM AIR, HOME CPAP IS NOW SET UP AT BEDSIDE FOR NOC USE. HE HAS DENIED FEELINGS OF NAUSEA/VOMITTING. HE HAS ONLY VOIDED 1 X DURING SHIFT WHICH WAS AT APPROX. 1645. IV'S ARE SALINE LOCKED. 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 HIS CAME TO BEDSIDE AT APPROX 1400 W/ HOME MEDICATION LIST WHICH THIS RN USED TO COMPLETE MED REC, DR. KLEIN NOTIFIED OF COMPLETED LIST AND ORDERS PLACED BY . PT IS NOW SITTING AT EDGE OF BED EATING DINNER, CALL LIGHT IS W/IN REACH.
[2023-08-17] VITALS (7 sets, daily range): BP systolic 119–154; BP diastolic 74–117
[2023-08-17 04:38] LABS: BASOPHILS ABSOLUTE AUTO 0.03 K/mm3 (0.00-0.23); BASOPHILS PERCENT AUTO 0 % (0-2); EOSINOPHILS ABSOLUTE AUTO 0.01 K/mm3 (0.00-0.68); EOSINOPHILS PERCENT AUTO 0 % (0-6); Hematocrit 34.4 % (37.0-53.0); Hemoglobin 11.4 g/dL (13.5-17.5); IMMATURE GRAN ABSOLUTE AUTO 0.07 K/mm3 (0.00-0.10); IMMATURE GRAN PERCENT AUTO 1 % (0-1); LYMPHOCYTES ABSOLUTE AUTO 1.18 K/mm3 (0.84-5.20); LYMPHOCYTES PERCENT AUTO 9 % (21-46); MONOCYTES ABSOLUTE AUTO 0.74 K/mm3 (0.16-1.47); MONOCYTES PERCENT AUTO 6 % (4-13); Mean Corpuscular HGB 30.6 pg (26.0-34.0); Mean Corpuscular HGB Conc 33.1 g/dL (31.5-36.5); Mean Corpuscular Volume 93 fL (80-100); NEUTROPHILS PERCENT AUTO 84 % (41-73); Platelet Count 296 K/mm3 (150-400); RDW Coefficient Variation 14.2 % (11.7-14.2); RDW Standard Deviation 47.9 fL (35.1-46.3); Red Blood Cell Count 3.72 M/mm3 (4.30-5.90); White Blood Cell Count 12.83 K/mm3 (4.00-11.30)
[2023-08-17 05:02] LABS: Albumin, Blood 2.4 g/dL (3.4-5.0); Anion Gap 6 mmol/L (6-16); Blood Urea Nitrogen 31 mg/dL (8-24); Bun/Creatinine Ratio 35.5 (12.0-20.0); CO2, Blood 26 mmol/L (21-32); Calcium, Blood 8.6 mg/dL (8.5-10.1); Chloride, Blood 105 mmol/L (98-108); Creatinine, Blood 0.87 mg/dL (0.60-1.20); Glomerular Filtration Rate 93 (60-); Glucose, Blood 220 mg/dL (70-99); Phosphorus, Blood 2.8 mg/dL (2.5-4.9); Potassium, Blood 3.8 mmol/L (3.5-5.5); Sodium, Blood 137 mmol/L (136-145)
--- NOTE | 2023-08-17 06:44 | NUR ---
SHIFT SUMMARY PT ALERT AND ORIENTED X 4. HR STABLE, REMAINS AFIB 90S-110S. BP STABLE. MAP ABOVE 65. OXYGEN SATURATION ABOVE 92% ON RA-2L AND CPAP. SEE RT NOTES FOR HOME CPAP SETTINGS. PT SBA TO BATHROOM. PT CALLS NEEDED FOR ASSISTANCE. PT ABLE TO TURN SELF IN BED. PT TEARFUL THIS AM D/T CONCERNS FOR HIS HEART RATE. THIS RN EDUCATED PT PROGRESS AND PROVIDED THERAPUETIC COMMUNICATION. NO CP OR PRESSURE REPORTED T/O SHIFT. CALL LIGHT WITHIN REACH. WILL CONT TO MONITOR UNTIL REPORT GIVEN TO DAYSHIFT RN.
--- NOTE | 2023-08-17 09:24 | NUR ---
UPDATE PT'S MUSA STOLL, CALLED FOR UPDATE. PT GAVE PERMISSION TO GIVE UPDATE.
--- NOTE | 2023-08-17 19:00 | NUR ---
CARE ASSUMPTION DURING BEDSIDE SHIFT ZAKIYA GALLAGHER RN THE PT IS SITTING ON THE SIDE OF THE BED ON RM AIR W SPO2 >94%. MONITOR SHOWING AFIB 90'S. BP WNL AND STABLE. PT AFEBRILE. PT IS ALERT AND ORIENTED COMMUNICATING APPROPRIATELY W STAFF. PT HAS TWO PATENT PERIPHERAL IV'S THAT ARE SALINE LOCKED. PT'S LS ARE DIM T/O. PT DENES ANY CHEST PAIN OR NAUSEA AT THIS TIME.
[2023-08-18] VITALS (7 sets, daily range): BP systolic 128–157; BP diastolic 93–114
[2023-08-18 04:18] LABS: BASOPHILS ABSOLUTE AUTO 0.01 K/mm3 (0.00-0.23); BASOPHILS PERCENT AUTO 0 % (0-2); EOSINOPHILS ABSOLUTE AUTO 0.03 K/mm3 (0.00-0.68); EOSINOPHILS PERCENT AUTO 0 % (0-6); Hematocrit 39.3 % (37.0-53.0); Hemoglobin 13.1 g/dL (13.5-17.5); IMMATURE GRAN ABSOLUTE AUTO 0.09 K/mm3 (0.00-0.10); IMMATURE GRAN PERCENT AUTO 1 % (0-1); LYMPHOCYTES ABSOLUTE AUTO 1.74 K/mm3 (0.84-5.20); LYMPHOCYTES PERCENT AUTO 13 % (21-46); MONOCYTES ABSOLUTE AUTO 0.86 K/mm3 (0.16-1.47); MONOCYTES PERCENT AUTO 6 % (4-13); Mean Corpuscular HGB 30.4 pg (26.0-34.0); Mean Corpuscular HGB Conc 33.3 g/dL (31.5-36.5); Mean Corpuscular Volume 91 fL (80-100); Mean Platelet Volume 9.6 fL (9.1-12.4); NEUTROPHILS ABSOLUTE AUTO 11.01 K/mm3 (1.96-9.15); NEUTROPHILS PERCENT AUTO 80 % (41-73); Platelet Count 367 K/mm3 (150-400); RDW Coefficient Variation 13.8 % (11.7-14.2); RDW Standard Deviation 46.2 fL (35.1-46.3); Red Blood Cell Count 4.31 M/mm3 (4.30-5.90); White Blood Cell Count 13.74 K/mm3 (4.00-11.30)
[2023-08-18 04:40] LABS: Bun/Creatinine Ratio 36.9 (12.0-20.0); Calcium, Blood 8.5 mg/dL (8.5-10.1); Creatinine, Blood 0.84 mg/dL (0.60-1.20); Potassium, Blood 3.9 mmol/L (3.5-5.5)
--- NOTE | 2023-08-18 05:53 | NUR ---
NIGHT HIFT SUMMARY PT HAS REMAINED ALERT AND ORIENTED THIS SHIFT COMMUNICATING APPROPRIATELY W STAFF. PT MAINTAINING SPO2 >94% ON RM AIR THIS SHIFT W VERY SHORT PERIOD ON HIS CPAP. PT AWAKE FOR MOST OF THE NIGHT BUT SLEEPING OFF AND ON FOR SHORT PERIODS OF TIME. PT'S MONITOR SHOWING AFIB 90'S BUT W ANY ACTIVITY THE PT BECOMES VERY TACHYCARDIC HIGH 160'S, PT DENYING ANY SYMPTOMS WHILE TACHYCADIC, TACHYCARDIA RESOLVING AT REST. BP SLIGHTLY ELEVATED THIS SHIFT BUT STABLE. PT AFEBRILE THIS SHIFT. WILL REPORT TO ONCOMING RN.
--- NOTE | 2023-08-18 18:06 | NUR ---
SHIFT SUMMARY NO ACUTE CHANGES THIS SHIFT. PT A&OX4, SP02>90% ON RA. CONTINUES TO COUGH UP YELLOW/GREEN SPUTUM. TELEMETRY SHOWS AFIB, HR 90'S-120'S AT REST, UP TO 160'S W/ AMBULATION. MD THOMAS IN ROOM THIS SHIFT, MD THOMAS W/ ORDERS TO INCREASE COREG DOSE. PT USED URINAL TO VOID. RECEIVED PAIN MEDICATION PER EMAR FOR RA PAIN. BRANDYBERTRANDSAL MUSA, AND HER VISITED PT THIS AFTERNOON, ABLE TO BE THERE FOR MD THOMAS TO UPDATE PLAN. PT SAT ON SIDE OF BED WATCHING FOOTBALL MOST OF DAY. CALL LIGHT IN REACH.
--- NOTE | 2023-08-18 23:25 | NUR ---
ASSUMPTION OF CARE AFTER RECEIVING REPORT FROM SHAE CLIFFORD, THIS RN ASSUMED CARE AT APPROX 1915. PATIENT SITTING UP ON SIDE OF BED DURING INITIAL ENCOUNTER. PATIENT IS ALERT AND ORIENTED X4. COOPERATIVE WITH CARE AND ABLE TO COMMUNICATE NEEDS EFFECTIVELY. VSS. TELEMETRY SHOWING AFIB 110's AT ASSUMPTION OF CARE. RATE HAS SINCE DECREASED TO 80's-90's. BP STABLE. DENIES CHEST PAIN OR PRESSURE. ON ROOM AIR, SATS >90%. OCCASSIONAL PRODUCTIVE COUGH NOTED, YELLOW/GREEN SPUTUM. RR 18-22. PATIENT USES CPAP WHILE SLEEPING AND IS ABLE TO MANAGE DEVICE INDEPENDENTLY. IS A STAND BY ASSIST WITH FWW TO THE RESTROOM. ABLE TO REPOSITION HIMSELF INDEPENDENTLY IN BED. CALL LIGHT IN REACH.
[2023-08-19 03:39] VITALS: BP 159/111
--- NOTE | 2023-08-19 05:24 | NUR ---
SHIFT SUMMARY NO ACUTE CHANGES SINCE PREVIOUS ASSUMPTION OF CARE NOTE. PATIENT DID EXPERIENCE SOME DIFFICULTY WITH SLEEP. ADMINISTERED PO MELATONIN PER EMAR. PATIENT ABLE TO SLEEP INTERMITTENTLY FOLLOWING. MANAGING CHRONIC PAIN PER EMAR. TELEMETRY SHOWING AFIB 80's. BP ELEVATED, SBP 150's, DBP 110's. USES CPAP WHILE SLEEPING, MANAGING INDEPENDENTLY. ROOM AIR WHILE AWAKE. SATS >92%. UP TO RESTROOM WITH FWW WITH MINIMAL ASSIST FROM STAFF. VOIDING. NO BM THIS SHIFT. ABLE TO REPOSITION HIMSELF IN BED INDEPENDENTLY. CALL LIGHT IN REACH. WILL REPORT TO ONCOMING RN.
[2023-08-19 08:33] VITALS: BP 154/127
[2023-08-19 09:49] LABS: Bun/Creatinine Ratio 25.9 (12.0-20.0); Calcium, Blood 9.2 mg/dL (8.5-10.1); Creatinine, Blood 0.93 mg/dL (0.60-1.20); Magnesium, Blood 2.3 mg/dL (1.6-2.4); Potassium, Blood 3.2 mmol/L (3.5-5.5)
[2023-08-19 11:24] VITALS: BP 109/79
--- NOTE | 2023-08-19 14:33 | NUR ---
DISCHARGE NOTE, PT A&OX4, VSS. PT IN ROOM WITH PT. DISCHARGE PAPERWORK AND MEDICATIONS REVIEWED WITH PT AND , STEFFANIE. MEDICATION FAXED TO [facility]. STEFFANIE CALLED PHARMACY WHILE THIS RN IN ROOM TO VERIFY THEY RECEIVED ORDER. IV REMOVED. PT WHEELED OUT BY PCT WITH AHEAD TO GET CAR.
== END 2023-08-19 14:11 | disposition home or self-care (01) | DRG 871 ==
LOC: ER 21:28 → PCU 08-16 00:58
PROVIDERS: Emergency Medicine; Family Medicine; Internal Medicine; Student in an Organized Health Care Education/Training Program; ADMIT Student in an Organized Health Care Education/Training Program
PROC: XW033E5 Introduction of Remdesivir Anti-infective into Peripheral Vein, Percutaneous Approach, New Technology Group 5 (ICD-10-PCS; principal; 2023-08-16)
PROC: 3E0DX3Z Introduction of Anti-inflammatory into Mouth and Pharynx, External Approach (ICD-10-PCS; 2023-08-16)
PROC: 8E0ZXY6 Isolation (ICD-10-PCS; 2023-08-16)
DX: A41.89 Other specified sepsis (principal); I50.23 Acute on chronic systolic (congestive) heart failure; J96.01 Acute respiratory failure with hypoxia; U07.1 COVID-19; R65.20 Severe sepsis without septic shock; I25.10 Atherosclerotic heart disease of native coronary artery without angina pectoris; G47.33 Obstructive sleep apnea (adult) (pediatric); E11.9 Type 2 diabetes mellitus without complications; M06.9 Rheumatoid arthritis, unspecified; G25.81 Restless legs syndrome; G89.29 Other chronic pain; I48.0 Paroxysmal atrial fibrillation; E66.01 Morbid (severe) obesity due to excess calories; I11.0 Hypertensive heart disease with heart failure; E03.9 Hypothyroidism, unspecified; E88.810 Metabolic syndrome; Z88.1 Allergy status to other antibiotic agents; Z88.8 Allergy status to other drugs, medicaments and biological substances; Z91.041 Radiographic dye allergy status; Z79.51 Long term (current) use of inhaled steroids; Z79.4 Long term (current) use of insulin; Z79.891 Long term (current) use of opiate analgesic; Z79.84 Long term (current) use of oral hypoglycemic drugs; Z79.01 Long term (current) use of anticoagulants; Z79.890 Hormone replacement therapy; Z79.1 Long term (current) use of non-steroidal anti-inflammatories (NSAID); Z79.02 Long term (current) use of antithrombotics/antiplatelets; Z79.82 Long term (current) use of aspirin; Z79.2 Long term (current) use of antibiotics; Z79.620 Long term (current) use of immunosuppressive biologic; Z95.5 Presence of coronary angioplasty implant and graft; Z85.46 Personal history of malignant neoplasm of prostate; Z92.3 Personal history of irradiation; Z95.1 Presence of aortocoronary bypass graft; Z87.891 Personal history of nicotine dependence; Z68.37 Body mass index [BMI] 37.0-37.9, adult
CPT/HCPCS: 0241U; 36415; 71046; 80048; 80053; 80069; 81001; 82140; 82803; 82947; 83605; 83735; 83880; 84100; 84145; 84443; 84484; 85025; 85610; 85730; 87040; 87081; 87430; 93005; 93010; 94640; 94660; 94664; 94760; 94762; 96365; 97110; 97161; 97165; 97535; 99285-25; A9270; C8929; J0248; J1815; J1940; J7050; Q9957

== ENCOUNTER 2023-09-10 14:35 | Inpatient (IN) | payer MEDICARE, OTHER ==
[~2023-09-10] VITALS: Ht 165.1 cm; Wt 106.6 kg
[~2023-09-10 14:35] MED LIST changes: +CARV25 PO; -FURO20 PO; +FURO40 PO; -GABA300 PO; +GABAPENTIN600 MG PO; -HUMIRA PEN40 MG/0.2 SQ; +HUMIRA(CF)40 MG/0.1 SC; +HYDACE10B PO; +Ropinirole HCl0.5 MG PO; -TRULICITY3 MG/0.5 M SC; +TRULICITY4.5 MG/0.5 SC
[2023-09-10 15:15] LABS: BASOPHILS ABSOLUTE AUTO 0.03 K/mm3 (0.00-0.23); BASOPHILS PERCENT AUTO 0 % (0-2); EOSINOPHILS ABSOLUTE AUTO 0.02 K/mm3 (0.00-0.68); EOSINOPHILS PERCENT AUTO 0 % (0-6); Hematocrit 34.7 % (37.0-53.0); Hemoglobin 11.3 g/dL (13.5-17.5); IMMATURE GRAN ABSOLUTE AUTO 0.11 K/mm3 (0.00-0.10); IMMATURE GRAN PERCENT AUTO 1 % (0-1); LYMPHOCYTES ABSOLUTE AUTO 0.89 K/mm3 (0.84-5.20); LYMPHOCYTES PERCENT AUTO 7 % (21-46); MONOCYTES ABSOLUTE AUTO 0.62 K/mm3 (0.16-1.47); MONOCYTES PERCENT AUTO 5 % (4-13); Mean Corpuscular HGB 29.7 pg (26.0-34.0); Mean Corpuscular HGB Conc 32.6 g/dL (31.5-36.5); Mean Corpuscular Volume 91 fL (80-100); NEUTROPHILS ABSOLUTE AUTO 10.32 K/mm3 (1.96-9.15); NEUTROPHILS PERCENT AUTO 86 % (41-73); Platelet Count 249 K/mm3 (150-400); RDW Coefficient Variation 14.5 % (11.7-14.2); RDW Standard Deviation 48.8 fL (35.1-46.3); White Blood Cell Count 11.99 K/mm3 (4.00-11.30)
[2023-09-10 15:42] LABS: Albumin, Blood 2.3 g/dL (3.4-5.0); Albumin/Globulin Ratio 0.4 (0.8-1.8); Bun/Creatinine Ratio 24.2 (12.0-20.0); Calcium, Blood 8.2 mg/dL (8.5-10.1); Creatinine, Blood 1.65 mg/dL (0.60-1.20); Globulin, Blood 5.3 g/dL (2.2-4.0); Potassium, Blood 4.6 mmol/L (3.5-5.5); Total Protein, Blood 7.6 g/dL (6.4-8.2)
[2023-09-10] MEDS ORDERED: KLOR-CON 1010 ME9 PO (20:25)
[2023-09-10] MEDS ORDERED: Oxybutynin Chlo10 MG PO (20:26)
[2023-09-10 21:27] VITALS: BP 110/89
--- NOTE | 2023-09-10 23:06 | NUR ---
CONT BIOX BIOX APPLIED TO PT PER CPAP PROTICOL. SPO2 93% HR 101-115 BPM. PT DID NOT AWAKEN. RESP EVEN AND UNLABORED WITH CPAP ON.
[2023-09-11 03:40] VITALS: BP 116/89
--- NOTE | 2023-09-11 04:19 | NUR ---
NOTE PT ALERT AND ORIENTED. VSS. RESTING QUIETLY WITH CPAP ON. SPO2 93% WITH HR 101 BPM. CONT BIOX ON. PT AMBULATED WITH FWW TO BATHROOM WITH SBA. VOIDED X1. MILD SOB AND DEEP CONGESTED COUGH WITH ACTIVITY. SAT STABLE WITH WALKING. PT DENIED DISCOMFORT. BED LOW LOCKED. SLIPPY SOCKS ON. CALL LIGHT WITH IN REACH. CARE ONGOING.
[2023-09-11 05:21] LABS: Hematocrit 31.5 % (37.0-53.0); Hemoglobin 10.3 g/dL (13.5-17.5); Mean Corpuscular HGB Conc 32.7 g/dL (31.5-36.5); Mean Corpuscular Volume 92 fL (80-100); Mean Platelet Volume 10.2 fL (9.1-12.4); Platelet Count 230 K/mm3 (150-400); RDW Coefficient Variation 14.5 % (11.7-14.2); RDW Standard Deviation 49.1 fL (35.1-46.3); Red Blood Cell Count 3.43 M/mm3 (4.30-5.90); White Blood Cell Count 9.58 K/mm3 (4.00-11.30)
[2023-09-11 05:42] LABS: Calcium, Blood 8.2 mg/dL (8.5-10.1); Creatinine, Blood 1.57 mg/dL (0.60-1.20); Potassium, Blood 4.3 mmol/L (3.5-5.5)
[2023-09-11 07:29] VITALS: BP 120/98
[2023-09-11 15:26] VITALS: BP 117/83
--- NOTE | 2023-09-11 18:42 | NUR ---
SUMMARY- PT UP IN CHAIR MOST OF THE DAY. A/O X4, VERBAL (THICK SPEECH HIS NORM), PLEASANT AND COOPERATIVE. TOLERATING FOOD AND FLUIDS. MIN SOB, ROOM AIR, LUNGS HAVE COARSE BREATH SOUNDS IN L MID TO LOWER LOBE. BLOOD SUGARS AC/HS 200 RANGE WITH SSI. WILL REPORT TO NOC RN
[2023-09-11 19:45] VITALS: BP 111/80
[2023-09-12 04:17] VITALS: BP 129/89
--- NOTE | 2023-09-12 04:24 | NUR ---
NOTE PT UP MOST OF THE NIGHT. DEEP, CONGESTED COUGH PRODUCTIVE OF PINK TINGED AND YELLOW SPUTUM. PT C/O OF SPUTUM BEING "STUCK". PROVIDED AND INSTRUCTED PT ON THE USE OF A FLUTTER VALVE. PT WEARING HOME CPAP ON RA. CONTINIOUS BIOX 95% HR 100 BPM. PT UP AD ALEJANDRA TO BATHROOM. GAIT STEADY. MEDCIATED WITH NORCO X1 FOR CHRONIC BACK PAIN. EFFECTIVE. CARE ALANIS OING.
[2023-09-12 05:51] LABS: Bun/Creatinine Ratio 32.2 (12.0-20.0); Calcium, Blood 8.5 mg/dL (8.5-10.1); Creatinine, Blood 1.52 mg/dL (0.60-1.20); Potassium, Blood 4.5 mmol/L (3.5-5.5)
[2023-09-12 07:28] VITALS: BP 129/99
[2023-09-12 12:28] LABS: Source, Urine Clean Catch
[2023-09-12 12:36] LABS: Appearance, Urine Clear (Clear); Bilirubin, Urine Neg (Neg); Blood, Urine 1+ (Neg); Color, Urine Yellow (P-Yellow); Glucose Qualitative, Urine Neg (Neg); Ketones, Urine Neg (Neg); Leukocyte Esterase, Urine Neg (Neg); Nitrite, Urine Neg (Neg); Protein, Urine 3+ (Neg); Urobilinogen, Urine NORM (Normal)
[2023-09-12 13:03] LABS: Bacteria Rare /hpf; Squamous Epithelial Cells Rare /hpf (Few); White Blood Cells, Urine 0-2 /hpf (0-5)
[2023-09-12 13:04] LABS: Amorphous Light (0-Heavy); Hyaline Casts 0-2 /lpf (0-2)
--- NOTE | 2023-09-12 15:40 | NUR ---
PATIENT AND HIS STATE THAT HIS SPEECH AND THE WAY HIS MOUTH/JAW IS MOVING IS ABNORMAL. WILL CONTACT DR. VASQUEZ
[2023-09-12 15:48] VITALS: BP 119/83
--- NOTE | 2023-09-12 15:56 | NUR ---
DR. VASQUEZ NOTIFIED BY TELEPHONE OF THE PATIENT AND HIS WIFES STATEMENT OF HIS SPEECH AND MOUTH AND JAW MOVEMENTS BEING ABNORMAL. THE PATIENT'S CLAIMS THAT THIS HAPPENED DURING HIS LAST HOSPITALIZATION AND RESOLVED ON ITS OWN. DR. VASQUEZ NOTIFIED AT [id number]
--- NOTE | 2023-09-12 18:46 | NUR ---
PATIENT IS ALERT AND ORIENTED AND COOPERATIVE WITH CARE. THE PATIENT'S SPEECH AND FACIAL/JAW MOVEMENTS ARE ABNORMAL. THE PATIENT'S NOTICED THIS CHANGE TODAY AND SAID WHEN SHE LEFT YESTERDAY AROUND 1430 HIS SPEECH WAS NORMAL. DR. VASQUEZ HAS BEEN NOTIFIED OF THIS CHANGE. THE PATIENT IS AMBULATORY IN HIS ROOM. THE PATIENT'S IS AT THE BEDSIDE. WILL CONTINUE TO MONITOR
[2023-09-12 19:43] VITALS: BP 120/96
[2023-09-13 04:22] VITALS: BP 123/94
[2023-09-13 05:46] LABS: Bun/Creatinine Ratio 31.7 (12.0-20.0); Calcium, Blood 8.3 mg/dL (8.5-10.1); Creatinine, Blood 1.26 mg/dL (0.60-1.20); Potassium, Blood 4.2 mmol/L (3.5-5.5)
--- NOTE | 2023-09-13 06:47 | NUR ---
Shift Summary During the night when pt would wake up he would be disoriented, unsure where he was or what the situation was. Sometimes he would be babbling incoherently while squirming in bed. Strength is equal on both sides, pupils react to light normally. Called hospitalist who ordered a CT of the head w/o contrast. Pt was tachycardic through most of the night 100-120. On CPAP while asleep, RA while awake, O2 sat > 95%. Pt able to ambulate to the bathroom. in the room with him helping him with orientation and ADLs. Pt more coherent when fully awake, still showing signs of dyskenesia.
[2023-09-13 07:44] VITALS: BP 115/92
[2023-09-13 14:19] LABS: Acinetobacter baumannii DNA Not Detected copy/mL (NOT DETECT); Enterobacter cloacae DNA Not Detected copy/mL (NOT DETECT); Escherichia coli DNA Detected Bin 10^5 copy/mL (NOT DETECT); Haemophilus influenzae DNA Not Detected copy/mL (NOT DETECT); Klebsiella aerogenes DNA Not Detected copy/mL (NOT DETECT); Klebsiella oxytoca DNA Not Detected copy/mL (NOT DETECT); Klebsiella pneumoniae DNA Not Detected copy/mL (NOT DETECT); Moraxella catarrhalis DNA Not Detected copy/mL (NOT DETECT); Proteus sp DNA Not Detected copy/mL (NOT DETECT); Pseudomonas aeruginosa DNA Not Detected copy/mL (NOT DETECT); Serratia marcescens DNA Not Detected copy/mL (NOT DETECT); Staphylococcus aureus DNA Not Detected copy/mL (NOT DETECT); Streptococcus agalactiae DNA Not Detected copy/mL (NOT DETECT); Streptococcus pneumoniae DNA Not Detected copy/mL (NOT DETECT); Streptococcus pyogenes DNA Not Detected copy/mL (NOT DETECT)
[2023-09-13 14:20] LABS: Adenovirus DNA Not Detected (NOT DETECT); CTX-M Resistance Gene Not Detected; Chlamydia pneumonia Not Detected (NOT DETECT); Human Coronavirus RNA Not Detected (NOT DETECT); Human Metapneumovirus RNA Not Detected (NOT DETECT); IMP Resistance Gene Not Detected; Influenza virus A RNA Not Detected (NOT DETECT); Influenza virus B RNA Not Detected (NOT DETECT); KPC Resistance Gene Not Detected; Legionella pneumophila Not Detected (NOT DETECT); Mycoplasma pneumoniae Not Detected (NOT DETECT); NDM Resistance Gene Not Detected; OXA-48-like Resistance Gene Not Detected; Parainfluenza virus RNA Not Detected (NOT DETECT); Respiratory syncytial Vir RNA Not Detected (NOT DETECT); Rhinovirus+Enterovirus RNA Not Detected (NOT DETECT); VIM Resistance Gene Not Detected
[2023-09-13 17:05] VITALS: BP 116/91
--- NOTE | 2023-09-13 18:07 | NUR ---
PATIENT IS ALERT AND ORIENTED AND COOPERATIVE WITH CARE. MODAFINIL HAS BEEN DC'D DUE TO ITS POSSIBLE SIDE EFFECT OF DYKINESIA. THE PATIENT'S FAMILY REPORTS THAT HE HASNT TAKEN THIS MEDICATION AT HOME FOR OVER A YEAR AND THAT IT WAS A MISTAKE THAT IT WAS ON HIS HOME MEDICATION LIST. PLAN IS FOR DISCHARGE HOME TOMORROW. THE PATIENT'S HAS BEEN AT THE BEDSIDE ALL DAY. LS COARSE AND DIMINISHED. ON RA. WEARS CPAP WHILE SLEEPING. HAS BEEN IND IN HIS ROOM. WILL CONTINUE TO MONITOR
[2023-09-13 19:21] VITALS: BP 135/101
[2023-09-14 04:20] VITALS: BP 106/84
[2023-09-14 05:15] LABS: Bun/Creatinine Ratio 30.3 (12.0-20.0); Calcium, Blood 8.7 mg/dL (8.5-10.1); Creatinine, Blood 1.22 mg/dL (0.60-1.20); Potassium, Blood 3.9 mmol/L (3.5-5.5)
--- NOTE | 2023-09-14 07:27 | NUR ---
Shift Summary Pt AOx1 t/o the night with loud groaning and frequent squirming. When aroused pt denies pain. Pt still shows signs of dyskenesia with facial and jaw movements. Cough is improved with only occasional coughing. in the room helping to reassure and orient patient t/o the night. He is continent and can ambulate well to the bathroom with a SBA.
[2023-09-14 10:10] VITALS: BP 152/108
[2023-09-14] MEDS ORDERED: AMOCLA875 PO (10:39)
[2023-09-14] MEDS ORDERED: BENZ100A PO (10:41)
[2023-09-14] MEDS ORDERED: VISBIOME 112.51 EACH PO (10:43)
[2023-09-14] MEDS ORDERED: LOSA25 PO (10:45)
[2023-09-14] MEDS ORDERED: Synthroid200 MCG PO (10:51)
[2023-09-14] MEDS ORDERED: MEMA5TAB PO (10:52)
--- NOTE | 2023-09-14 11:12 | NUR ---
DISCHARGE NOTE PT DISCHARGED TO HOME, PICKED UP BY HIS . TAKEN TO THEIR VEHICLE BY WHEELCHAIR. IV REMOVED. PERSONAL BELONGINGS RETURNED. MEDICATIONS FAXED TO THE PHARMACY OF THEIR CHOICE, HARD SCRIPT PROVIDED. DISCHARGE INFORMATION AND EDUCATION PROVIDED TO THE PT'S .
== END 2023-09-14 11:11 | disposition home or self-care (01) | DRG 194 ==
LOC: ER 14:35 → MEDS 17:43 → ERHOLD 17:43 → MEDS 21:21
PROVIDERS: Emergency Medicine; Nurse Practitioner Acute Care; ADMIT Internal Medicine
PROC: 5A09357 Assistance with Respiratory Ventilation, Less than 24 Consecutive Hours, Continuous Positive Airway Pressure (ICD-10-PCS; principal; 2023-09-10)
DX: J18.9 Pneumonia, unspecified organism (principal); D84.9 Immunodeficiency, unspecified; F03.93 Unspecified dementia, unspecified severity, with mood disturbance; I50.22 Chronic systolic (congestive) heart failure; N17.9 Acute kidney failure, unspecified; I48.0 Paroxysmal atrial fibrillation; I25.10 Atherosclerotic heart disease of native coronary artery without angina pectoris; G47.33 Obstructive sleep apnea (adult) (pediatric); M06.9 Rheumatoid arthritis, unspecified; I11.0 Hypertensive heart disease with heart failure; G24.9 Dystonia, unspecified; E11.51 Type 2 diabetes mellitus with diabetic peripheral angiopathy without gangrene; E88.810 Metabolic syndrome; K21.9 Gastro-esophageal reflux disease without esophagitis; E03.9 Hypothyroidism, unspecified; E78.5 Hyperlipidemia, unspecified; R77.8 Other specified abnormalities of plasma proteins; E66.01 Morbid (severe) obesity due to excess calories; R30.0 Dysuria; Z91.041 Radiographic dye allergy status; Z88.8 Allergy status to other drugs, medicaments and biological substances; Z86.16 Personal history of COVID-19; Z88.1 Allergy status to other antibiotic agents; Z95.1 Presence of aortocoronary bypass graft; Z85.46 Personal history of malignant neoplasm of prostate; Z92.3 Personal history of irradiation; Z79.01 Long term (current) use of anticoagulants; Z79.891 Long term (current) use of opiate analgesic; Z79.84 Long term (current) use of oral hypoglycemic drugs; Z79.890 Hormone replacement therapy; Z79.02 Long term (current) use of antithrombotics/antiplatelets; Z79.4 Long term (current) use of insulin; Z79.620 Long term (current) use of immunosuppressive biologic; Z95.5 Presence of coronary angioplasty implant and graft; Z87.891 Personal history of nicotine dependence; Z68.39 Body mass index [BMI] 39.0-39.9, adult
CPT/HCPCS: 36415; 70450; 71046; 76770; 80048; 80053; 81001; 82550; 82947; 83880; 84145; 84484; 85025; 85027; 87040; 87633; 93005; 93010; 94640; 94660; 94664; 94762; 96365; 96367; 99285-25; A9270; J0456; J0696; J1815; J2405; J7050

== ENCOUNTER 2024-08-30 13:51 | Inpatient (IN) | payer MEDICARE, OTHER ==
[~2024-08-30] VITALS: Ht 170.2 cm; Wt 121.0 kg
[2024-08-30] VITALS (19 sets, daily range): BP systolic 62–130; BP diastolic 35–82
[~2024-08-30 13:51] MED LIST changes: +AMOCLA875 PO; +BENZ100A PO; +KLOR-CON 1010 ME9 PO; +LOSA25 PO; +MEMA5TAB PO; +Oxybutynin Chlo10 MG PO; +Synthroid200 MCG PO; +VISBIOME 112.51 EACH PO
[2024-08-30] MEDS ORDERED: NS 1,000 ML IV SCH ×4 (14:05→20:00)
[2024-08-30 14:27] LABS: Hematocrit 33.6 % (37.0-53.0); Hemoglobin 11.2 g/dL (13.5-17.5); Mean Corpuscular HGB Conc 33.3 g/dL (31.5-36.5); Mean Corpuscular Volume 93 fL (80-100); Mean Platelet Volume 10.3 fL (9.1-12.4); Platelet Count 240 K/mm3 (150-400); RDW Coefficient Variation 14.8 % (11.7-14.2); RDW Standard Deviation 51.2 fL (35.1-46.3); Red Blood Cell Count 3.61 M/mm3 (4.30-5.90); White Blood Cell Count 18.07 K/mm3 (4.00-11.30)
[2024-08-30 14:41] LABS: Source, Urine Straight Cath
[2024-08-30 14:43] LABS: Albumin, Blood 2.1 g/dL (3.4-5.0); Albumin/Globulin Ratio 0.4 (0.8-1.8); Bilirubin, Total 3.8 mg/dL (0.1-1.0); Calcium, Blood 8.4 mg/dL (8.5-10.1); Creatinine, Blood 4.91 mg/dL (0.60-1.20); Globulin, Blood 4.8 g/dL (2.2-4.0); Potassium, Blood 5.4 mmol/L (3.5-5.5); Total Protein, Blood 6.9 g/dL (6.4-8.2)
[2024-08-30 14:44] LABS: Appearance, Urine Hazy (Clear); Blood, Urine 2+ (Neg); Color, Urine Amber (P-Yellow); Glucose Qualitative, Urine Neg (Neg); Ketones, Urine 1+ (Neg); Leukocyte Esterase, Urine 2+ (Neg); Nitrite, Urine Pos (Neg); Protein, Urine 2+ (Neg); Specific Gravity, Urine 1.025 (1.003-1.022); Urobilinogen, Urine 2+ (Normal)
[2024-08-30 15:09] LABS: Bilirubin, Urine 2+ (Neg)
[2024-08-30 15:12] LABS: Bacteria Many /hpf; Calcium Oxalate Crystals Rare /hpf; Granular Casts 0-2 /lpf (0); Mucus Light (0-Heavy); Squamous Epithelial Cells Rare /hpf (Few)
[2024-08-30 15:14] LABS: BAND PERCENT MAN 12 % (0-8); BASOPHILS ABSOLUTE MAN 0.18 K/mm3 (0.00-0.23); BASOPHILS PERCENT MAN 1 % (0-2); EOSINOPHILS PERCENT MAN 0 % (0-6); LYMPHOCYTES PERCENT MAN 5 % (21-46); MONOCYTES ABSOLUTE MAN 0.72 K/mm3 (0.16-1.47); MONOCYTES PERCENT MAN 4 % (4-13); NEUTROPHILS ABSOLUTE MAN 16.26 K/mm3 (1.96-9.15); SEG NEUTROPHILS PERCENT MAN 78 % (41-73); TOTAL CELLS COUNTED 100
[2024-08-30] MEDS ORDERED: EUTHYROX150 MC1 PO (15:21)
[2024-08-30] MEDS ORDERED: ENTRESTO 49 MG1 EAC7 PO (15:25)
[2024-08-30] MEDS ORDERED: VITAMIN D5000 UNIT PO (15:27)
[2024-08-30] MEDS ORDERED: HUMIRA40 MG/0.2 SC (15:33)
[2024-08-30] MEDS ORDERED: SEMGLEE (Y100 UNIT/1 SC (15:35)
[2024-08-30] MEDS ORDERED: INSULIN LI100 UNIT/5 SC (15:35)
[2024-08-30] MEDS ORDERED: HYDROCODONE-AC1 EAC7 PO (15:36)
[2024-08-30] MEDS ORDERED: OXYCONTIN10 MG PO (15:37)
[2024-08-30] MEDS ORDERED: CefTRIAXone Sodium 1,000 MG in NS 50 ML IV ONE (15:40)
[2024-08-30] MEDS ORDERED: Magnesium Hydroxide Conc 10 ML UDC PO PRN (17:20)
[2024-08-30] MEDS ORDERED: Ondansetron HCl 2 MG / ML 2ML Vial IV PRN (17:20)
[2024-08-30] MEDS ORDERED: Bisacodyl 10 MG Supp PR PRN (17:20)
[2024-08-30] MEDS ORDERED: FLU VACC TS2024-25(6MOS UP)/PF 45 MCG/0.5 ML SYRINGE IM SCH (17:25)
[2024-08-30] MEDS ORDERED: Albuterol 2.5 MG/3 ML VIAL INH PRN (17:25)
[2024-08-30] MEDS ORDERED: CefTRIAXone Sodium 1,000 MG in NS 100 ML IV ONE (17:35)
--- NOTE | 2024-08-30 18:08 | NUR ---
ARRIVAL TO UNIT AND WOUND NOTIFICATION: PATIENT ARRIVED TO UNIT VIA GURNEY. PATIENT ALERT TO SELF. PATIENT FOLLOWING DIRECTIONS. PATIENT FIDGETING WITH TELE AND LINES. PATIENT IS REDIRECTABLE. LEVOPHED GTT INFUSING AT 5 MCG/MIN. MAPS CURRENTLY IN THE 60S. PATIENT HR IN THE 90S-100S. PATIENT STABLE ON ROOM AIR WITH SPO2 >94%. PATIENT DENIES PAIN. PATIENT REPORTS DISLIKE OF THE KIDD CATHETER. MINIMAL, DARK NARINDER URINE IN THE COLLECTION BAG. PATIENT HAS A NON-BLANCHABLE REDNESS ON HIS COCCYX, SCABS ON HIS KNEES AND A NON-HEALING WOUND ON HIS RIGHT CHEST RELATED TO PRIOR IMPELLA PLACEMENT. DR. OGDEN NOTIFIED OF ARRIVAL AND WOUNDS. PATIENT'S GRANDDAUGHTER AT BEDSIDE, JONNA. SHE IS SUPPORTIVE OF THE PATIENT AND HELPS CALM HIM.
[2024-08-30] MEDS ORDERED: FentaNYL Citrate 50 MCG/ML 2 ML Injection IV STA (18:49)
[2024-08-30] MEDS ORDERED: NS 500 ML IV ONE (19:21)
[2024-08-30] MEDS ORDERED: NS 500 ML IV SCH (19:30)
[2024-08-30] MEDS ORDERED: Sennosides 8.6 MG Tab PO SCH (21:00)
[2024-08-30] MEDS ORDERED: Gabapentin 300 MG Cap PO SCH (21:00)
[2024-08-30] MEDS ORDERED: rOPINIRole HCl 0.25 MG Tab PO SCH (21:00)
[2024-08-30] MEDS ORDERED: Lactobacil 2-S.Thermo-Bifido 1 1 Cap PO SCH (21:00)
[2024-08-30] MEDS ORDERED: Docusate Sodium 100 MG Cap PO SCH (21:00)
[2024-08-30] MEDS ORDERED: Famotidine 10 MG/ML 2ML Vial IV SCH (21:00)
--- NOTE | 2024-08-30 22:25 | NUR ---
ASSUMED CARE AT 1900 PT LAYING IN BED BEING ASSESSED BY DR OGDEN AT SHIFT CHANGE REGARDING CENTRAL LINE. PT GRANDDAUGHTER AT BEDSIDE. CENETRAL LINE PLACED TO RIGHT OBEY SHORTLY AFTER SHIFT CHANGE. PT IS ORIENTED TO SELF AND FAMILY ONLY; HE FOLLOWS DIRECTIONS BUT EASILY FORGETS AND MUST BE REDIRECTED FREQUENTLY. GRANDDAUGHTER MUSA STAYING TONIGHT TO KEEP PT CALM; SHE IS HELPFUL. PT ON RA, SPO2 >98%. AFEBRILE. AFIB NOTED WITH RATE 90-110. BP CHALLENGING TO MAINTAIN MAP >65; LEVOPHED INFUSING AND BEING TITRATED UP. KIDD IN PLACE WITH SMALL AMOUNT OF OUTPUT. TOLERATING SMALL SIPS OF WATER WELL. SEE SHIFT ASSESSMENT FOR FULL ASSESSMENT.
[2024-08-30] MEDS ORDERED: Vasopressin 20 UNITS in NS 100 ML IV SCH (22:40)
[2024-08-30] MEDS ORDERED: NS 1,000 ML IV ONE (22:40)
--- NOTE | 2024-08-30 22:47 | NUR ---
UPDATE CALL MADE TO DR OGDEN REGARDING BP. LEVOPHED UP TO 22MCG/MIN WITH MOST CURRENT BP 75/53. NEW ORDERS PROVIDED TO START VASOPRESSON AND GIVEN ANOTHER 1L BOLUS.
[2024-08-31] VITALS (89 sets, daily range): BP systolic 76–153; BP diastolic 45–95
[2024-08-31 00:48] LABS: Bun/Creatinine Ratio 10.7 (12.0-20.0); Calcium, Blood 7.4 mg/dL (8.5-10.1); Creatinine, Blood 5.05 mg/dL (0.60-1.20); Potassium, Blood 4.7 mmol/L (3.5-5.5)
--- NOTE | 2024-08-31 02:53 | NUR ---
UPDATE PT NOW NEEDING 5L NC AND 5L O2 BLEED IN TO THE CPAP; FINE CRACKLES NOTED TO UPPER LOBES. BOLUS STOPPED. CPAP HELPING.
[2024-08-31 04:19] LABS: Hematocrit 28.8 % (37.0-53.0); Hemoglobin 9.4 g/dL (13.5-17.5); Mean Corpuscular HGB 30.8 pg (26.0-34.0); Mean Corpuscular HGB Conc 32.6 g/dL (31.5-36.5); Mean Corpuscular Volume 94 fL (80-100); Mean Platelet Volume 9.8 fL (9.1-12.4); Platelet Count 197 K/mm3 (150-400); RDW Coefficient Variation 15.1 % (11.7-14.2); Red Blood Cell Count 3.05 M/mm3 (4.30-5.90); White Blood Cell Count 14.47 K/mm3 (4.00-11.30)
[2024-08-31 04:43] LABS: Albumin, Blood 1.8 g/dL (3.4-5.0); Albumin/Globulin Ratio 0.4 (0.8-1.8); Bilirubin, Total 3.5 mg/dL (0.1-1.0); Bun/Creatinine Ratio 10.8 (12.0-20.0); Calcium, Blood 7.4 mg/dL (8.5-10.1); Creatinine, Blood 5.07 mg/dL (0.60-1.20); Globulin, Blood 4.3 g/dL (2.2-4.0); Total Protein, Blood 6.1 g/dL (6.4-8.2)
[2024-08-31 05:30] LABS: BAND PERCENT MAN 5 % (0-8); BASOPHILS PERCENT MAN 0 % (0-2); EOSINOPHILS PERCENT MAN 0 % (0-6); LYMPHOCYTES ABSOLUTE MAN 0.72 K/mm3 (0.84-5.20); LYMPHOCYTES PERCENT MAN 5 % (21-46); MONOCYTES ABSOLUTE MAN 0.57 K/mm3 (0.16-1.47); MONOCYTES PERCENT MAN 4 % (4-13); NEUTROPHILS ABSOLUTE MAN 13.16 K/mm3 (1.96-9.15); SEG NEUTROPHILS PERCENT MAN 86 % (41-73); TOTAL CELLS COUNTED 100
[2024-08-31] MEDS ORDERED: CALCIUM GLUC IN NACL, ISO-OSM 50 ML IV ONE (06:20)
--- NOTE | 2024-08-31 06:45 | NUR ---
END OF SHIFT SUMMARY NO ACUTE EVENTS SINCE LAST NOTE. HE WAS ONLY ABLE TO GET A FEW HOURS OF SLEEP THAT WAS BROKEN OUT T/O THE NIGHT. HIS VERBAL COMMUNICATION IS IMPROVING TO FULL SENTENCES; CONT TO ONLY BE ORIENTED TO SELF AND FAMILY. PLACED ON 5L OVER THE NIGHT; MILDLY TOLERATING CPAP WHILE SLEEPING, WHILE AWAKE ON 5L NC; IMPROVED BREATH SOUNDS AFTER STOPPING FLUIDS AND TIME ON CPAP. AFEBRILE. HR 90-100. BP IMPROVED WITH LEVOPHED INFUSING AT 20MCG/MIN AND VASOPRESSIN INFUSING AT 0.04UNITS/MIN; SBP NOW 80-120'S WITH MAP >65. TOLERATING SIPS OF WATER WELL. KIDD IN PLACE WITH SMALL AMOUNT OF URINE OUTPUT. NS INFUSING AT 75ML/HR. WILL REPORT TO AM RN WHEN AVAILABLE.
[2024-08-31] MEDS ORDERED: Calcium Chloride 10% 10 ML SYR IV ONE (07:25)
[2024-08-31] MEDS ORDERED: Calcium Chloride 10% 2,000 MG in NS 100 ML IV ONE (07:30)
[2024-08-31] MEDS ORDERED: Insulin Regular 100 UNIT/ML 10ML Vial SC SCH (07:30)
[2024-08-31] MEDS ORDERED: Rivaroxaban 10 MG Tab PO SCH ×2 (09:00)
[2024-08-31] MEDS ORDERED: Levothyroxine Sodium 0.15 MG Tab PO SCH (09:00)
[2024-08-31] MEDS ORDERED: Heparin Sodium 5000 Units/ML 1ML MDV SC SCH (09:00)
[2024-08-31] MEDS ORDERED: Insulin Glargine-Yfgn 100 Unit/mL 3 ML SYR SC SCH (10:45)
[2024-08-31] MEDS ORDERED: CefTRIAXone Sodium 2,000 MG in NS 100 ML IV SCH (15:00)
[2024-08-31 16:51] LABS: Bun/Creatinine Ratio 12.9 (12.0-20.0); Calcium, Blood 8.4 mg/dL (8.5-10.1); Creatinine, Blood 4.41 mg/dL (0.60-1.20); Magnesium, Blood 1.9 mg/dL (1.6-2.4); Phosphorus, Blood 4.7 mg/dL (2.5-4.9); Potassium, Blood 4.6 mmol/L (3.5-5.5)
[2024-08-31] MEDS ORDERED: CALCIUM GLUC IN NACL, ISO-OSM 100 ML IV ONE (17:10)
--- NOTE | 2024-08-31 18:09 | NUR ---
DAY SHIFT SUMMARY PT HAS BEEN AXO X2 THIS SHIFT DISPLAYING CONFUSION ABOUT WHERE HE IS OR WHY HE IS HERE. PT FOLLOWING COMMANDS THIS SHIFT PARTICIPATING IN CARE. PT'S BP IMPROVED W VASOPRESSIN GTT BEING TURNED OFF AND LEVOPHED GTT DOWN TO 14 MCG/MIN. SPO2 >92% ON RM AIR WHEN AWAKE BUT REQUIRING 2L NC WHEN ASLEEP HE WOULD NOT KEEP HIS CPAP ON WHILE SLEEPING. MONITOR SHOWING AFIB 80'S-90'S. PT TOLERATING PO INTAKE THIS SHIFT. PT W IMPROVED URINE OUTPUT THIS SHIFT, SEE I%O'S FOR DETAILS. NS INFUSING AT 75 ML/HR ALL SHIFT. WILL REPORT TO ONCOMING RN.
[2024-08-31] MEDS ORDERED: Metoclopramide HCl 5MG / ML 2ML Vial IV PRN (18:45)
[2024-08-31 19:06] LABS: PCO2 Arterial 36.8 mmHg (35-45); PO2 Arterial 82.2 mmHg (80-100); pH Blood Arterial 7.36 (7.35-7.45)
--- NOTE | 2024-08-31 20:45 | NUR ---
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 SPO2 >92% ON 2L NC. AFEBRILE. HR 80-100. LEVOPHED INFUSING AT 10MCG/MIN TO MAINTAIN MAP >65. PRN REGLAN GIVEN RIGHT BEFORE SHIFT CHANGE; HE CONT TO HAVE MILD NAUSEA BUT NO VOMITING SINCE REGLAND. KIDD IN PLACE WITH PALE URINE OUTPUT. NS INFUSING AT 75ML/HR. SEE SHIFT ASSESSMENT FOR FULL ASSESSMENT. GRANDDAUGHTER MUSA AT BEDSIDE AND APPROPRIATE WITH STAFF AND PT. PLAN FOR HER TO STAY ALL NIGHT AGAIN.
[2024-09-01] VITALS (64 sets, daily range): BP systolic 82–135; BP diastolic 51–87
[2024-09-01 04:24] LABS: BASOPHILS ABSOLUTE AUTO 0.02 K/mm3 (0.00-0.23); BASOPHILS PERCENT AUTO 0 % (0-2); EOSINOPHILS ABSOLUTE AUTO 0.09 K/mm3 (0.00-0.68); EOSINOPHILS PERCENT AUTO 1 % (0-6); Hematocrit 27.9 % (37.0-53.0); Hemoglobin 9.1 g/dL (13.5-17.5); IMMATURE GRAN ABSOLUTE AUTO 0.07 K/mm3 (0.00-0.10); IMMATURE GRAN PERCENT AUTO 1 % (0-1); LYMPHOCYTES ABSOLUTE AUTO 0.76 K/mm3 (0.84-5.20); LYMPHOCYTES PERCENT AUTO 8 % (21-46); MONOCYTES ABSOLUTE AUTO 0.58 K/mm3 (0.16-1.47); MONOCYTES PERCENT AUTO 6 % (4-13); Mean Corpuscular HGB 30.2 pg (26.0-34.0); Mean Corpuscular HGB Conc 32.6 g/dL (31.5-36.5); Mean Corpuscular Volume 93 fL (80-100); Mean Platelet Volume 9.8 fL (9.1-12.4); NEUTROPHILS ABSOLUTE AUTO 8.61 K/mm3 (1.96-9.15); NEUTROPHILS PERCENT AUTO 85 % (41-73); Platelet Count 188 K/mm3 (150-400); RDW Coefficient Variation 15.1 % (11.7-14.2); RDW Standard Deviation 51.7 fL (35.1-46.3); Red Blood Cell Count 3.01 M/mm3 (4.30-5.90); White Blood Cell Count 10.13 K/mm3 (4.00-11.30)
[2024-09-01 04:45] LABS: Albumin, Blood 1.7 g/dL (3.4-5.0); Albumin/Globulin Ratio 0.4 (0.8-1.8); Bilirubin, Total 1.9 mg/dL (0.1-1.0); Bun/Creatinine Ratio 14.7 (12.0-20.0); Calcium, Blood 8.5 mg/dL (8.5-10.1); Creatinine, Blood 3.75 mg/dL (0.60-1.20); Globulin, Blood 4.3 g/dL (2.2-4.0); Magnesium, Blood 1.8 mg/dL (1.6-2.4); Phosphorus, Blood 3.6 mg/dL (2.5-4.9); Potassium, Blood 3.9 mmol/L (3.5-5.5)
--- NOTE | 2024-09-01 06:43 | NUR ---
END OF SHIFT SUMMARY NO ACUTE EVENTS OVERNIGHT; HE WAS ABLE TO SLEEP A LARGE PART OF THE NIGHT. HE CONT TO BE ORIENTED TO SELF AND FAMILY. AFEBRILE. DID NOT TOLERATE CPAP LAST NIGHT, PLACED ON OXYMASK 2L WHILE SLEEPING TO KEEP SPO2 >97%. AFIB NOTED WITH RATE 80-90'S. SBP 100'S WITH MAP >65; LEVOPHED TITRATED DOWN TO 3MCG/MIN. ONE EPISODE OF NAUSEA WITHOUT EMESIS; PRN REGLAN GIVEN AND HELPFUL. KIDD IN PLACE WITH ADAQUATE OUTPUT; 1150ML OUT. CENTRAL LINE TO RT GROIN PATENT WITH DRESSING C/D/I. NS INFUSING AT 75ML/HR. PT GRANDDAUGHTER AT BEDSIDE ALL NIGHT AND APPROPRIATE WITH PT AND STAFF. WILL REPORT TO AM RN WHEN AVAILABLE.
[2024-09-01] MEDS ORDERED: Atorvastatin 40 MG Tab PO SCH (09:00)
[2024-09-01] MEDS ORDERED: Memantine HCL 5 MG Tab PO SCH (09:00)
[2024-09-01] MEDS ORDERED: Clopidogrel Bisulfate 75 MG Tab PO SCH (09:00)
--- NOTE | 2024-09-01 17:44 | NUR ---
SHIFT SUMMARY PATIENT IS ORIENTED TO SELF, AND PLACE PLEASANT AND APPROPRIATE, VITALS HAVE BEEN STABLE, INTERMITTENT O2 WHEN SLEEPING, GOOD APPETITE, PATIENT WILL GET HOME MEDICATION TRULICITY TOMORROW, PT/OT WORKED WITH PATIENT AND HE GOT UP TO THE CHAIR AND WAS UP FROM LUNCH TO DINNER, LEVO WAS STOPPED @1223 AND MAPS HAVE ALL BEE >65 AT BEDSIDE
[2024-09-01] MEDS ORDERED: Diclofenac Sodium 100 GM TUBE TOP SCH (18:00)
--- NOTE | 2024-09-01 20:37 | NUR ---
START OF SHIFT PT RESTING IN BED W/O ANY COMPLAINTS. PT IS SLEEPING ON RA WITH IN THE ROOM. PT HAS SANDBAG ON R SITE THAT APPEARS C/D/I. PT HR ST IN 100'S. SPO2 SAT ABOVE 92% WITH BP 110'S/60'S. NS GTT RUNNING AT 75/HR. WILL CONTINUE PLAN OF CARE.
[2024-09-01] MEDS ORDERED: Diclofenac Sodium 100 GM TUBE TOP PRN (20:40)
[2024-09-02] VITALS (53 sets, daily range): BP systolic 80–124; BP diastolic 56–84
[2024-09-02 03:29] LABS: BASOPHILS ABSOLUTE AUTO 0.02 K/mm3 (0.00-0.23); BASOPHILS PERCENT AUTO 0 % (0-2); EOSINOPHILS ABSOLUTE AUTO 0.16 K/mm3 (0.00-0.68); EOSINOPHILS PERCENT AUTO 1 % (0-6); Hematocrit 28.5 % (37.0-53.0); Hemoglobin 9.4 g/dL (13.5-17.5); IMMATURE GRAN ABSOLUTE AUTO 0.22 K/mm3 (0.00-0.10); IMMATURE GRAN PERCENT AUTO 2 % (0-1); LYMPHOCYTES PERCENT AUTO 6 % (21-46); MONOCYTES ABSOLUTE AUTO 0.69 K/mm3 (0.16-1.47); MONOCYTES PERCENT AUTO 6 % (4-13); Mean Corpuscular HGB 30.6 pg (26.0-34.0); Mean Corpuscular Volume 93 fL (80-100); Mean Platelet Volume 9.8 fL (9.1-12.4); NEUTROPHILS ABSOLUTE AUTO 10.75 K/mm3 (1.96-9.15); NEUTROPHILS PERCENT AUTO 86 % (41-73); Platelet Count 192 K/mm3 (150-400); RDW Coefficient Variation 15.3 % (11.7-14.2); RDW Standard Deviation 51.2 fL (35.1-46.3); Red Blood Cell Count 3.07 M/mm3 (4.30-5.90); White Blood Cell Count 12.54 K/mm3 (4.00-11.30)
--- NOTE | 2024-09-02 04:43 | NUR ---
SHIFT SUMMARY PT HAD NO NEW ACUTE EVENTS OVER NIGHT. PT COMPLAINS OF RHEUMATOID ARTHRITIC PAIN IN MOST JOINTS. OLD RIGHT GROIN CENTRAL DRESSING REMAINS C/D/I W/O SIGNS OF HEMATOMA OR BLEEDING.
[2024-09-02 07:23] LABS: Bun/Creatinine Ratio 21.4 (12.0-20.0); Creatinine, Blood 2.29 mg/dL (0.60-1.20); Magnesium, Blood 1.8 mg/dL (1.6-2.4); Potassium, Blood 3.7 mmol/L (3.5-5.5)
[2024-09-02] MEDS ORDERED: DULAGLUTIDE 4.5 MG/0.5 ML SC SCH (09:00)
--- NOTE | 2024-09-02 09:49 | NUR ---
"Spiritual Care Callback | ICU [facility] Pt. is awake when I enter the room. The Pts. spouse soon arrives. As I facilitate a life review it is clear that the Pt. displays evidence of wanting to be baptized. He verbalized that his current hospitalization has made this spiritual need more urgent. After facilitating more background regarding the Pts. clementine and understanding, I baptized the Pt. with annointing oil and blessed him with a pastoral blessing. Pt. and spouse verbalized gratitude for the spiritual care visit and the administration of the sacrament of confucianist. Will remain available to the Pt. and family."
[2024-09-02] MEDS ORDERED: HYDROcodone 10-APAP 325 TAB PO PRN (09:55)
[2024-09-02] MEDS ORDERED: HYDROcodone 5-APAP 325 TAB PO PRN (10:00)
--- NOTE | 2024-09-02 19:10 | NUR ---
Shift [facility] Pt transfered to PCU at approx 1610. Pt alert, oriented x3; anxious but cooperative with care. Pt denies chest pain, sob, nausea, dizziness and numb/tingling. Tele afib, bp soft but stable. Spo2 >90% on ra, ls dim. Abd distend, nontender hypoactive bt noted. Other vss. No other acute changes noted. Report given to oncoming rn.
--- NOTE | 2024-09-02 20:06 | NUR ---
ASSUMPTION OF CARE PT LYING IN BED TALKING TO FAMILY. ALERT AND ORIENTED X 2. PLEASANT. COOPERATIVE. HR CONTROLLED A IFB IN THE 90S WITH BP 106/74. RSPIRATIONS UNLABORED. SATURATION 99% ON RA. PT DOES NOT LIKE TO WEAR THE AIRVO FOR NAS. WILL ENCOURAGE COMPLIANCE.NO CHEST PAIN /PRESSURE, AB PAIN, N/V, DIZZINESS AT THIS TIME. KIDD DRAINING NARINDER URINE TO GRAVITY. PT SALINE LOCKED. RIGHT FEMORAL ACCESS SITE SHOWS STABLE ECCHYMOSIS ACCORDING TO PREVIOUS NURSE. NO SIGNS OF HEMATOMA, NEW BLEEDING. SMALL BLOOD ON DRESSING.
[2024-09-03] VITALS (11 sets, daily range): BP systolic 73–110; BP diastolic 51–69
[2024-09-03 04:40] LABS: BASOPHILS ABSOLUTE AUTO 0.03 K/mm3 (0.00-0.23); BASOPHILS PERCENT AUTO 0 % (0-2); EOSINOPHILS PERCENT AUTO 3 % (0-6); Hemoglobin 9.7 g/dL (13.5-17.5); IMMATURE GRAN ABSOLUTE AUTO 0.28 K/mm3 (0.00-0.10); IMMATURE GRAN PERCENT AUTO 3 % (0-1); LYMPHOCYTES ABSOLUTE AUTO 0.65 K/mm3 (0.84-5.20); LYMPHOCYTES PERCENT AUTO 7 % (21-46); MONOCYTES ABSOLUTE AUTO 0.46 K/mm3 (0.16-1.47); MONOCYTES PERCENT AUTO 5 % (4-13); Mean Corpuscular HGB 30.7 pg (26.0-34.0); Mean Corpuscular HGB Conc 33.4 g/dL (31.5-36.5); Mean Corpuscular Volume 92 fL (80-100); NEUTROPHILS ABSOLUTE AUTO 8.17 K/mm3 (1.96-9.15); NEUTROPHILS PERCENT AUTO 83 % (41-73); Platelet Count 178 K/mm3 (150-400); RDW Coefficient Variation 15.7 % (11.7-14.2); RDW Standard Deviation 52.7 fL (35.1-46.3); Red Blood Cell Count 3.16 M/mm3 (4.30-5.90); White Blood Cell Count 9.89 K/mm3 (4.00-11.30)
[2024-09-03 04:56] LABS: Albumin, Blood 1.4 g/dL (3.4-5.0); Albumin/Globulin Ratio 0.3 (0.8-1.8); Bilirubin, Total 3.1 mg/dL (0.1-1.0); Bun/Creatinine Ratio 25.1 (12.0-20.0); Calcium, Blood 7.8 mg/dL (8.5-10.1); Creatinine, Blood 1.91 mg/dL (0.60-1.20); Globulin, Blood 4.2 g/dL (2.2-4.0); Potassium, Blood 3.6 mmol/L (3.5-5.5); Total Protein, Blood 5.6 g/dL (6.4-8.2)
--- NOTE | 2024-09-03 07:22 | NUR ---
PT LYING IN BED TALKING TO . ALERT AND ORIENTED X 2. PLEASANT. COOPERATIVE. HR CONTROLLED A FIB IN THE 80S WITH STABLE BP. RSPIRATIONS UNLABORED. SATURATION 99% ON RA. PT WORE CPAP THROUGHOUT NIGHT. .NO CHEST PAIN /PRESSURE, AB PAIN, N/V, DIZZINESS AT THIS TIME. KIDD DRAINING CLOUDY NARINDER URINE TO GRAVITY. URINE OUTPUT DECREASED SUBSTANTIALLY THROUGHOUT NIGHT. PT STARTED TO DRASTICALLY INCREASE PO WATER INTAKE IN SECOND HALF OF SHIFT. PT SALINE LOCKED. RIGHT FEMORAL CENTRAL CATHETER SITE SHOWS STABLE ECCHYMOSIS. NO SIGNS OF HEMATOMA, NEW BLEEDING. SMALL BLOOD ON DRESSING. CALL LIGHT HANDY, STILL IN ROOM.
[2024-09-03] MEDS ORDERED: CALCIUM GLUC IN NACL, ISO-OSM 100 ML IV ONE (08:40)
--- NOTE | 2024-09-03 17:30 | NUR ---
SHIFT SUMMARY PATIENT IS ALERT AND ORIENTATED X4, ABLE TO MAKE NEEDS KNOWN THROUGHTOUT SHIFT. FAMILY REMAINED AT BEDSIDE MUST OF THE DAY PATIENT HAS GOOD FAMILY SUPPORT. TWO PERSON MAX ASSIST TO CHAIR W/ FWW AND GAIT BELT FOR ALL MEALS TODAY. PATIENT REMAINED UP IN CHAIR FOR SOME TIME FOLLOWING MEALS. PT AND OT ROUNDED ON PATIENT TODAY. PATIENT IS ON ROOM AIR SATURATING ABOVE 94% CONTINUS PULSE OX. BLOOD PRESSURE REMAINS SOFT THIS SHIFT WITH MAPS ABOVE 60. KIDD CATH IN PLACE DRAINING NARINDER COLORED URINE TO GRAVITY. PATIENT HAS BEEN ENCOURAGED TO DRINK FLUIDS BY STAFF AND FAMILY. PATIENT AND FAMILY WISH TO DISCHARGE HOME AND NOT TO A SNF, CARE MANAGMENT WORKED WITH PATIENT/FAMILY ON DISCHARGE PLAN. WILL CONTINUE TO TREAT, CALL LIGHT IN REACH.
[2024-09-03] MEDS ORDERED: Hydroxychloroquine Sulfate 200 MG Tab PO SCH (21:00)
[2024-09-04] VITALS (10 sets, daily range): BP systolic 88–124; BP diastolic 43–76
[2024-09-04] MEDS ORDERED: Levothyroxine Sodium 0.15 MG Tab PO SCH (06:00)
--- NOTE | 2024-09-04 07:40 | NUR ---
ASSUMING CARE ASSUMED CARE OF THIS PATIENT AT 0715. BEDSIDE SHIFT REPORT GIVEN BY OFF GOING ASHANTI RN. PATIENT GRAND DAUGHTER STAYED THE NIGHT WITH PATIENT IN ROOM. PATIENT IS A+O X4 THIS MORNING ANSWERING QUESTIONS APPROT. PATIENT ASSISTED TO SIT UP IN BED TO DRINK HOT CHOCOLATE, CALL LIGHT IN REACH.
[2024-09-04 07:53] LABS: Hematocrit 29.7 % (37.0-53.0); Mean Corpuscular HGB 30.3 pg (26.0-34.0); Mean Corpuscular HGB Conc 33.7 g/dL (31.5-36.5); Mean Corpuscular Volume 90 fL (80-100); Mean Platelet Volume 10.3 fL (9.1-12.4); Platelet Count 214 K/mm3 (150-400); RDW Coefficient Variation 15.8 % (11.7-14.2); RDW Standard Deviation 52.1 fL (35.1-46.3); White Blood Cell Count 16.08 K/mm3 (4.00-11.30)
[2024-09-04 08:28] LABS: Albumin, Blood 1.5 g/dL (3.4-5.0); Albumin/Globulin Ratio 0.3 (0.8-1.8); Bilirubin, Total 1.8 mg/dL (0.1-1.0); Bun/Creatinine Ratio 24.4 (12.0-20.0); Calcium, Blood 8.2 mg/dL (8.5-10.1); Creatinine, Blood 2.13 mg/dL (0.60-1.20); Globulin, Blood 4.4 g/dL (2.2-4.0); Total Protein, Blood 5.9 g/dL (6.4-8.2)
[2024-09-04 08:45] LABS: BASOPHILS PERCENT MAN 0 % (0-2); EOSINOPHILS ABSOLUTE MAN 0.64 K/mm3 (0.00-0.68); EOSINOPHILS PERCENT MAN 4 % (0-6); LYMPHOCYTES ABSOLUTE MAN 0.96 K/mm3 (0.84-5.20); LYMPHOCYTES PERCENT MAN 6 % (21-46); METAMYELOCYTE ABSOLUTE MAN 0.32 K/mm3 (0.00-0.00); METAMYELOCYTE PERCENT MAN 2 % (0-0); MONOCYTES ABSOLUTE MAN 0.32 K/mm3 (0.16-1.47); MONOCYTES PERCENT MAN 2 % (4-13); NEUTROPHILS ABSOLUTE MAN 13.82 K/mm3 (1.96-9.15); SEG NEUTROPHILS PERCENT MAN 86 % (41-73); TOTAL CELLS COUNTED 100
[2024-09-04] MEDS ORDERED: Atorvastatin 40 MG Tab PO SCH (09:00)
[2024-09-04] MEDS ORDERED: NS 500 ML IV ONE (10:00)
[2024-09-04] MEDS ORDERED: Midodrine 5 MG Tab PO SCH (13:00)
--- NOTE | 2024-09-04 17:37 | NUR ---
SHIFT SUMMARY PATIENT IS ALERT TO SELF, PLACE, AND SITUATION THIS AFTERNOON. SPENT MOST OF THE DAY LAYING IN BED AND SLEEPING ON AND OFF. GOT UP TO THE BSC HAD A BOWEL MOVEMENT AND IS NOW UP IN THE RECLINER FOR DINNER. KIDD CATH WAS REMOVED AND PATIENT HAS SUCCESSFULLY VOIDED SINCE REMOVEL. PATIENT HAD SOFT BLOOD PRESSURES THIS MORNING/AFTERNOON. 500ML BOLUS OF NS WAS GIVEN AND MIDODRINE. PATIENT GRETA THIS WELL AND BP IS IMPROVING. REMAINS ON ROOM AIR SATURATING ABOVE 94% THROUGHTOUT SHIFT. IS AT BEDSIDE, CALL LIGHT IS IN REACH, WILL CONTINUE TO TREAT.
[2024-09-05 03:27] VITALS: BP 101/56
[2024-09-05 04:45] LABS: Hematocrit 27.7 % (37.0-53.0); Hemoglobin 9.3 g/dL (13.5-17.5); Mean Corpuscular HGB 30.2 pg (26.0-34.0); Mean Corpuscular HGB Conc 33.6 g/dL (31.5-36.5); Mean Corpuscular Volume 90 fL (80-100); Mean Platelet Volume 9.6 fL (9.1-12.4); Platelet Count 218 K/mm3 (150-400); RDW Coefficient Variation 16.1 % (11.7-14.2); RDW Standard Deviation 53.3 fL (35.1-46.3); Red Blood Cell Count 3.08 M/mm3 (4.30-5.90); White Blood Cell Count 12.89 K/mm3 (4.00-11.30)
[2024-09-05 05:26] LABS: BAND PERCENT MAN 2 % (0-8); BASOPHILS PERCENT MAN 0 % (0-2); EOSINOPHILS PERCENT MAN 7 % (0-6); LYMPHOCYTES PERCENT MAN 7 % (21-46); MONOCYTES ABSOLUTE MAN 0.51 K/mm3 (0.16-1.47); MONOCYTES PERCENT MAN 4 % (4-13); MYELOCYTE ABSOLUTE MAN 0.51 K/mm3 (0.00-0.00); MYELOCYTE PERCENT MAN 4 % (0-0); NEUTROPHILS ABSOLUTE MAN 10.05 K/mm3 (1.96-9.15); SEG NEUTROPHILS PERCENT MAN 76 % (41-73); TOTAL CELLS COUNTED 100
[2024-09-05 05:34] LABS: Albumin, Blood 1.3 g/dL (3.4-5.0); Albumin/Globulin Ratio 0.3 (0.8-1.8); Bilirubin, Total 1.2 mg/dL (0.1-1.0); Bun/Creatinine Ratio 24.9 (12.0-20.0); Calcium, Blood 7.7 mg/dL (8.5-10.1); Creatinine, Blood 2.13 mg/dL (0.60-1.20); Globulin, Blood 4.2 g/dL (2.2-4.0); Potassium, Blood 4.1 mmol/L (3.5-5.5); Total Protein, Blood 5.5 g/dL (6.4-8.2)
--- NOTE | 2024-09-05 05:41 | NUR ---
SHIFT SUMMARY NO ACUTE CHANGES THROUGHTOUT NIGHT. A/OX4. CONTINUES TO HAVE MILD HYPOTENSION. DENIES CHEST PAIN/PRESSURE, ABD PAIN, OR FEELING DIZZY. TELE IN PLACE, AFIB AT 80 -90BPM. CHRONIC PAIN MANAGED PER EMAR AND REPOSITIONING. SPO2 SAT ABOVE 95% WITH CPAP. USING URINAL AT BEDSIDE AND AMBULATING WITH MAX ASSIST TO BATHROOM. TOLERATING PO INTAKE, DENIES N/V. LEFT FOREARM IV SL. VERY ATTENTIVE AT BEDSIDE. PT CURRENTLY RESTING BED WITH CALL LIGHT IN REACH. WILL GIVE REPORT TO ONCOMING RN.
[2024-09-05 07:35] VITALS: BP 100/55
[2024-09-05 08:43] LABS: Bun/Creatinine Ratio 25.2 (12.0-20.0); Calcium, Blood 7.8 mg/dL (8.5-10.1); Creatinine, Blood 2.14 mg/dL (0.60-1.20)
[2024-09-05] MEDS ORDERED: Sodium Chloride 3% 50 ML IV SCH (11:00)
[2024-09-05] MEDS ORDERED: NS 500 ML IV ONE (11:37)
[2024-09-05 11:44] VITALS: BP 120/58
[2024-09-05] MEDS ORDERED: NS 1,000 ML IV SCH (13:00)
[2024-09-05] MEDS ORDERED: NS 500 ML IV SCH (14:05)
[2024-09-05 16:03] VITALS: BP 100/57
--- NOTE | 2024-09-05 18:25 | NUR ---
SHIFT SUMMARY NEURO - PT A/OX4, OBEYS COMMANDS, MAKES NEEDS KNOWN. PT REPORTS 5-6 CHRONIC PAIN DUE TO RHEUMATOID ARTHRITIS. TREATING PER NOV. CARDIO - BPS SOFT 100'S-110'S, HR WNL. PT DENIES CHEST PAIN/PRESSURE RESP - PT ON ROOM AIR, O2 SATS ABOVE 90%, USES CPAP WHEN SLEEPING CONSISTENTLY. GI/ - CONTINENT OF URINE AND STOOL, LAST BM YESTERDAY NO ACUTE EVENTS TODAY.
[2024-09-05 19:41] VITALS: BP 102/72
[2024-09-05 23:58] VITALS: BP 118/69
[2024-09-06 04:10] VITALS: BP 115/74
[2024-09-06 04:42] LABS: Hematocrit 30.2 % (37.0-53.0); Hemoglobin 10.1 g/dL (13.5-17.5); Mean Corpuscular HGB 30.1 pg (26.0-34.0); Mean Corpuscular HGB Conc 33.4 g/dL (31.5-36.5); Mean Corpuscular Volume 90 fL (80-100); Mean Platelet Volume 9.9 fL (9.1-12.4); Platelet Count 245 K/mm3 (150-400); RDW Coefficient Variation 16.1 % (11.7-14.2); RDW Standard Deviation 53.8 fL (35.1-46.3); Red Blood Cell Count 3.35 M/mm3 (4.30-5.90); White Blood Cell Count 10.79 K/mm3 (4.00-11.30)
[2024-09-06 04:56] LABS: Albumin, Blood 1.4 g/dL (3.4-5.0); Albumin/Globulin Ratio 0.3 (0.8-1.8); Bilirubin, Total 0.9 mg/dL (0.1-1.0); Bun/Creatinine Ratio 28.3 (12.0-20.0); Calcium, Blood 8.1 mg/dL (8.5-10.1); Creatinine, Blood 1.87 mg/dL (0.60-1.20); Globulin, Blood 4.5 g/dL (2.2-4.0); Total Protein, Blood 5.9 g/dL (6.4-8.2)
[2024-09-06 05:05] LABS: BAND PERCENT MAN 2 % (0-8); BASOPHILS PERCENT MAN 0 % (0-2); EOSINOPHILS ABSOLUTE MAN 0.43 K/mm3 (0.00-0.68); EOSINOPHILS PERCENT MAN 4 % (0-6); LYMPHOCYTES ABSOLUTE MAN 0.43 K/mm3 (0.84-5.20); LYMPHOCYTES PERCENT MAN 4 % (21-46); METAMYELOCYTE PERCENT MAN 1 % (0-0); MONOCYTES ABSOLUTE MAN 0.75 K/mm3 (0.16-1.47); MONOCYTES PERCENT MAN 7 % (4-13); MYELOCYTE ABSOLUTE MAN 0.21 K/mm3 (0.00-0.00); MYELOCYTE PERCENT MAN 2 % (0-0); NEUTROPHILS ABSOLUTE MAN 8.84 K/mm3 (1.96-9.15); SEG NEUTROPHILS PERCENT MAN 80 % (41-73); TOTAL CELLS COUNTED 100
--- NOTE | 2024-09-06 05:20 | NUR ---
SHIFT SUMMARY PT REMAINS A&OX4. VSS ON RA. CPAP HS. PT CONTINUES TO RECIEVE FLUID CONTINUOUSLY @ 100CC/HR. PT CONTINUES TO HAVE MODERATE TO SEVERE PAIN. PRN NORCO GIVEN WITH MODERATE RELIEF. PTS AT BEDSIDE. PT TRANSITIONING WITH 2MAX ASSIST. SODIUM LEVELS IMPROVING PER NEW LABS THIS AM. SEE CHART FOR RESULTS. NO FURTHER QUESTIONS OR CONCERNS AT THIS TIME. CALL SAAVEDRA WITHIN REACH.
[2024-09-06 07:46] VITALS: BP 86/45
--- NOTE | 2024-09-06 08:02 | NUR ---
NURSING PCU DAYSHIFT: Assumed care of pt at approx 0700. A/O, very pleasant, cooperative w/care. Speech is slow and slurred, able to communicate needs. C/O 8-05/19 chronic pain r/t RA, treating w/positioning and meds as ordered. Skin w/scabs to L of knee and bridge of nose, previous insertion sites to RCW and R groin w/o redness/oozing/swelling, scattered bruising. General weakness and requires encouragement to participate in ADL's d/t pain. Tele in place, afib w/HR 90's, SBP 80's prior to a.m. meds, no c/o CP/pressure, HT distant, 3+ BLE edema (R>L). L/S cta t/o, dim bases d/t habitus, no noted cough, respirations shallow and unlabored, uses CPAP during sleep, no O2 required, O2 sat upper 90's. Abd SNT, BT+, voiding using urinal w/assistance. PIV x1, NS infusing at 100cc/hr as per d/o. Pt appears to be in good spirits. at bedside and assisting w/ADL's. Pt sitting up in bed eating breakfast and having coffee. Denies any current needs other than a.m. meds. Awaiting rounding from PMD, cont to monitor for changes.
[2024-09-06 09:15] LABS: Free Thyroxine 0.77 ng/dL (0.70-1.60); Thyroid Stimulating Hormone 5.83 uIU/mL (0.360-4.800)
[2024-09-06] MEDS ORDERED: HYDROcodone 10-APAP 325 TAB PO PRN (09:35)
[2024-09-06] MEDS ORDERED: OxyCODONE HCL 10 MG TABCR PO SCH (10:00)
[2024-09-06] MEDS ORDERED: PredniSONE 20 MG Tab PO SCH (10:00)
[2024-09-06] MEDS ORDERED: Calcium Carbonate 500 MG Tab Chew PO PRN (13:35)
[2024-09-06 15:31] VITALS: BP 136/98
--- NOTE | 2024-09-06 16:48 | NUR ---
SHIFT SUMMARY: PT ALERT AND ORIENTED X3, ABLE TO FOLLOW COMMANDS AND MAKE NEEDS KNOWN. FORGETFUL AT TIMES. SPEECH MUMBLED. BP AND HR STABLE. AFEBRILE. SPO2 >96% ON ROOM AIR. RESPIRATIONS EVEN AND UNLABORED. LUNG SOUNDS DIM IN BASES. ABD DISTENDED, BOWEL SOUNDS +. PULSES STRONG AND EQUAL THROUGHOUT. +2 EDEMA NOTED IN IN BLE. COMPRESSION SOCKS ON. PT TWO PERSON MAX ASSIST TO AND FROM CHAIR. ABLE TO TOLERATE RECLINER MAJORITY OF THE SHIFT. AT BEDSIDE THROUGHOUT THIS DAY UPDATED FREQUENTLY ON PT PLAN OF CARE. CBG STABLE. PT MEDICATED FOR PAIN X2 THIS SHIFT. CALL LIGHT IN REACH, WILL REPORT TO ONCOMING RN.
[2024-09-06 19:51] VITALS: BP 134/84
[2024-09-07] VITALS (7 sets, daily range): BP systolic 109–173; BP diastolic 78–118
--- NOTE | 2024-09-07 00:45 | NUR ---
PT TRANSFERRED TO MEDICAL UNIT DUE TO LOW CENSUS OF NURSES. PT REMAINS A&OX4. VSS ON RA. PT CONTINUES TO HAVE SOFT BP'S HOWEVER MANAGED WELL WITH MEDS PER NOV. REPORT GIVEN TO MEDICAL UNIT NURSE TO RESUME CARE.
--- NOTE | 2024-09-07 04:31 | NUR ---
SHIFT SUMMARY PT IS TRANSFER FROM PCU. PT WAS ADMITTED FOR UNWITNESSED FALL ON 09/02. PT HAD A PRIOR FALL ON 08/27 WELL. AFTER FALLING ON THE , PT PRESENTED CONFUSED AND ABNORMAL SLURRED SPEACH. AT ED, PT UNABLE TO MAINTAIN MAP> 60. PT IS ON ROOM AIR, USES C-PAP MACHINE AND IS ON TELE. PT HAS AC/HS STICKS. PT AT BEDSIDE AND ASSISTS WITH TOILETING, USING THE URINAL. PT HAS RIGHT CHEST WOUND THAT FROM AN IMPELLA PUMP THAT WAS PLACE AND LATER FOUND INFECTED WHEN WOUND CULTURE WAS DONE. WOUND WAS DRESSED IN PCU AND PT IS TO SCHEDULE OUT PT PROCEEDURE TO GET IT TAKEN OUT.
[2024-09-07 05:15] LABS: Hematocrit 27.6 % (37.0-53.0); Hemoglobin 9.2 g/dL (13.5-17.5); Mean Corpuscular HGB 30.2 pg (26.0-34.0); Mean Corpuscular HGB Conc 33.3 g/dL (31.5-36.5); Mean Corpuscular Volume 91 fL (80-100); Mean Platelet Volume 9.8 fL (9.1-12.4); Platelet Count 262 K/mm3 (150-400); RDW Coefficient Variation 16.3 % (11.7-14.2); RDW Standard Deviation 53.6 fL (35.1-46.3); Red Blood Cell Count 3.05 M/mm3 (4.30-5.90); White Blood Cell Count 12.44 K/mm3 (4.00-11.30)
[2024-09-07 05:38] LABS: Albumin, Blood 1.5 g/dL (3.4-5.0); Albumin/Globulin Ratio 0.3 (0.8-1.8); Bilirubin, Total 0.9 mg/dL (0.1-1.0); Bun/Creatinine Ratio 34.7 (12.0-20.0); Calcium, Blood 8.3 mg/dL (8.5-10.1); Creatinine, Blood 1.47 mg/dL (0.60-1.20); Globulin, Blood 4.5 g/dL (2.2-4.0); Potassium, Blood 4.4 mmol/L (3.5-5.5)
[2024-09-07 05:50] LABS: BAND PERCENT MAN 2 % (0-8); BASOPHILS PERCENT MAN 0 % (0-2); EOSINOPHILS ABSOLUTE MAN 0.12 K/mm3 (0.00-0.68); EOSINOPHILS PERCENT MAN 1 % (0-6); LYMPHOCYTES ABSOLUTE MAN 0.74 K/mm3 (0.84-5.20); LYMPHOCYTES PERCENT MAN 6 % (21-46); METAMYELOCYTE ABSOLUTE MAN 0.24 K/mm3 (0.00-0.00); METAMYELOCYTE PERCENT MAN 2 % (0-0); MONOCYTES ABSOLUTE MAN 0.37 K/mm3 (0.16-1.47); MONOCYTES PERCENT MAN 3 % (4-13); MYELOCYTE ABSOLUTE MAN 0.49 K/mm3 (0.00-0.00); MYELOCYTE PERCENT MAN 4 % (0-0); NEUTROPHILS ABSOLUTE MAN 10.44 K/mm3 (1.96-9.15); SEG NEUTROPHILS PERCENT MAN 82 % (41-73); TOTAL CELLS COUNTED 100
--- NOTE | 2024-09-07 09:52 | NUR ---
pt laying in bed awake a/ox3, forgetful, states he has dementia, pleasant and cooperative with care, follows commands well, denies pain except when touched where he has arthritis, states he didn't sleep well last night, wants to nap at this time, has cpap in place, no cough noted, hrirr, tele in place running afib with bbb and pvcs, 3+ edema noted to right foot, 2+ to left foot, pp faint, cap refill<3 sec, vs stable, afebrile, piv to rac site is clear and patent, btx4, abd flat soft nontender, voids via urinal and has briefs in place, skin has wound to rcw with dressing in place, bree, weak, is a lift to get oob, jesenia, call light in reach.
[2024-09-07] MEDS ORDERED: Carvedilol 3.125 MG Tab PO SCH (14:00)
[2024-09-07] MEDS ORDERED: Sacubitril/Valsartan 24 MG-26 MG Tab PO SCH (14:00)
--- NOTE | 2024-09-07 19:20 | NUR ---
pt was thinking they were going home today, wanted him to be tx to chair, with two people, several people explained that if PT says lift then we can't do otherwise, PT came and reeval him, he did this afternoon and got him to the chair, granddaughter in to stay with him, have medicated him for pain several times, his home meds were restarted at a lower dose, and is a bit hypertensive this evening, Dr. Robin aware, plan for home tomorrow after monitoring vs. no further changes this shift. call light in reach.
[2024-09-07] MEDS ORDERED: Gabapentin 300 MG Cap PO SCH (21:00)
[2024-09-08 00:06] VITALS: BP 134/74
[2024-09-08 04:04] VITALS: BP 134/65
[2024-09-08 05:11] LABS: Hematocrit 26.7 % (37.0-53.0); Hemoglobin 8.9 g/dL (13.5-17.5); Mean Corpuscular HGB 30.6 pg (26.0-34.0); Mean Corpuscular HGB Conc 33.3 g/dL (31.5-36.5); Mean Corpuscular Volume 92 fL (80-100); Mean Platelet Volume 9.9 fL (9.1-12.4); Platelet Count 266 K/mm3 (150-400); RDW Coefficient Variation 16.2 % (11.7-14.2); RDW Standard Deviation 54.3 fL (35.1-46.3); Red Blood Cell Count 2.91 M/mm3 (4.30-5.90); White Blood Cell Count 14.08 K/mm3 (4.00-11.30)
--- NOTE | 2024-09-08 05:19 | NUR ---
SHIFT SUMMARY PATIENT IS ALERT AND ORIENTED. PATIENT HAS HAD NO ACUTE EVENTS THIS SHIFT. PATIENT HAS COMPLAINED OF PAIN TWICE THIS SHIFT, MEDICATED PER EMAR. PATIENT HAS NOT COMPLAINED OF SOB, NAUSEA, OR VOMMITTING. PATIENTS GRANDDAUGHTER STAYED THE NIGHT WITH PATIENT AND HELPED WITH CARE. BED IN LOCKED AND LOWEST POSITION. CALL LIGHT IN PLACE.
[2024-09-08 05:58] LABS: Albumin, Blood 1.8 g/dL (3.4-5.0); Albumin/Globulin Ratio 0.4 (0.8-1.8); Bilirubin, Total 0.8 mg/dL (0.1-1.0); Bun/Creatinine Ratio 36.7 (12.0-20.0); Calcium, Blood 8.7 mg/dL (8.5-10.1); Creatinine, Blood 1.28 mg/dL (0.60-1.20); Globulin, Blood 4.5 g/dL (2.2-4.0); Potassium, Blood 4.4 mmol/L (3.5-5.5); Total Protein, Blood 6.3 g/dL (6.4-8.2)
[2024-09-08] MEDS ORDERED: Levothyroxine Sodium 0.175 MG TAB PO SCH (06:00)
[2024-09-08 07:44] VITALS: BP 151/79
[2024-09-08] MEDS ORDERED: Polyethylene Glycol 3350 17 gm PO PRN (08:50)
[2024-09-08] MEDS ORDERED: Rivaroxaban 10 MG Tab PO SCH (09:00)
[2024-09-08] MEDS ORDERED: Docusate Sodium 100 MG Cap PO SCH (09:00)
[2024-09-08] MEDS ORDERED: Carvedilol 3.125 MG Tab PO SCH (09:00)
[2024-09-08] MEDS ORDERED: CARV3.125 PO (11:47)
[2024-09-08] MEDS ORDERED: EUTHYROX175 MCG PO (11:49)
[2024-09-08] MEDS ORDERED: ENTRESTO 24 MG1 EAC2 PO (11:53)
[2024-09-08] MEDS ORDERED: Calcium Carbon500 MG PO (11:56)
[2024-09-08] MEDS ORDERED: DICLOFENAC SOD100 GM TOP (11:57)
[2024-09-08] MEDS ORDERED: Prednisone10 MG PO (11:58)
[2024-09-08] MEDS ORDERED: VISBIOME 112.51 EACH PO (11:59)
--- NOTE | 2024-09-08 16:00 | NUR ---
DISCHARGE A&OX3-4, COOPERATIVE WITH CARE. MUMBLED SPEECH, BUT ANSWERS QUESTIONS APPROPRIATELY. NO ACUTE EVENTS THIS SHIFT. DENIED CP/PRESSURE, HEADACHE, DIZZINESS, OR SOB. COMPLAINED OF "ALL OVER" PAIN R/T RA. MEDICATED PER EMAR. 2P MAX ASSIST TRANSFER. 3 PEOPLE WERE ABLE TO GET HIM IN THE SHOWER BEFORE DISCHARGE. GRANDDAUGHTER AND AT BESIDE AND HELP WITH CARE. BANDAGE CHANGED ON THE R UPPER CHEST. HEEL PROTECTORS PLACED. IV REMOVED. TELE REMOVED. DISCHARGE PACKET REVIEWED WITH PATIENT AND FAMILY. THEY DENIED ANY QUESTIONS OR CONCERNS. PATIENT WHEELED OUT AT 1545 FOR DISCHARGE.
[2024-09-08] MEDS ORDERED: Insulin Glargine-Yfgn 100 Unit/mL 3 ML SYR SC SCH (21:00)
== END 2024-09-08 15:50 | disposition home health service (06) | DRG 871 ==
LOC: ER 13:51 → ICUE 17:57 → PCU 09-02 16:10 → MEDS 09-07 01:47
PROVIDERS: Emergency Medicine; Family Medicine; Internal Medicine; Internal Medicine Critical Care Medicine; ADMIT Family Medicine
PROC: 5A09357 Assistance with Respiratory Ventilation, Less than 24 Consecutive Hours, Continuous Positive Airway Pressure (ICD-10-PCS; principal; 2024-08-30)
PROC: 3E033XZ Introduction of Vasopressor into Peripheral Vein, Percutaneous Approach (ICD-10-PCS; 2024-08-30)
PROC: 06HY33Z Insertion of Infusion Device into Lower Vein, Percutaneous Approach (ICD-10-PCS; 2024-08-30)
PROC: 3E03329 Introduction of Other Anti-infective into Peripheral Vein, Percutaneous Approach (ICD-10-PCS; 2024-08-30)
PROC: 4A033R1 Measurement of Arterial Saturation, Peripheral, Percutaneous Approach (ICD-10-PCS; 2024-08-31)
DX: A41.9 Sepsis, unspecified organism (principal); G92.8 Other toxic encephalopathy; J96.01 Acute respiratory failure with hypoxia; R65.21 Severe sepsis with septic shock; N17.9 Acute kidney failure, unspecified; N39.0 Urinary tract infection, site not specified; I50.22 Chronic systolic (congestive) heart failure; I13.0 Hypertensive heart and chronic kidney disease with heart failure and stage 1 through stage 4 chronic kidney disease, or unspecified chronic kidney disease; N12 Tubulo-interstitial nephritis, not specified as acute or chronic; E87.1 Hypo-osmolality and hyponatremia; F03.90 Unspecified dementia, unspecified severity, without behavioral disturbance, psychotic disturbance, mood disturbance, and anxiety; S01.20XA Unspecified open wound of nose, initial encounter; S09.90XA Unspecified injury of head, initial encounter; G47.33 Obstructive sleep apnea (adult) (pediatric); E03.9 Hypothyroidism, unspecified; I48.0 Paroxysmal atrial fibrillation; I25.10 Atherosclerotic heart disease of native coronary artery without angina pectoris; E66.01 Morbid (severe) obesity due to excess calories; E11.51 Type 2 diabetes mellitus with diabetic peripheral angiopathy without gangrene; K21.9 Gastro-esophageal reflux disease without esophagitis; F32.A Depression, unspecified; M06.9 Rheumatoid arthritis, unspecified; F10.10 Alcohol abuse, uncomplicated; E11.22 Type 2 diabetes mellitus with diabetic chronic kidney disease; N18.9 Chronic kidney disease, unspecified; G89.4 Chronic pain syndrome; I08.0 Rheumatic disorders of both mitral and aortic valves; R74.8 Abnormal levels of other serum enzymes; R12 Heartburn; I95.9 Hypotension, unspecified; E11.65 Type 2 diabetes mellitus with hyperglycemia; E86.1 Hypovolemia; W19.XXXA Unspecified fall, initial encounter; Z88.1 Allergy status to other antibiotic agents; Z88.8 Allergy status to other drugs, medicaments and biological substances; Z91.048 Other nonmedicinal substance allergy status; Z79.4 Long term (current) use of insulin; Z79.891 Long term (current) use of opiate analgesic; Z79.899 Other long term (current) drug therapy; Z85.46 Personal history of malignant neoplasm of prostate; Z90.49 Acquired absence of other specified parts of digestive tract; Z79.51 Long term (current) use of inhaled steroids; Z79.2 Long term (current) use of antibiotics; Z98.890 Other specified postprocedural states; Z79.890 Hormone replacement therapy; Z95.5 Presence of coronary angioplasty implant and graft; Z87.891 Personal history of nicotine dependence; Z79.01 Long term (current) use of anticoagulants; Z68.39 Body mass index [BMI] 39.0-39.9, adult; Z87.01 Personal history of pneumonia (recurrent)
CPT/HCPCS: 36415; 36556; 36600; 51702; 51798; 70450; 71045; 72125; 76700; 76857; 80048; 80053; 81001; 82330; 82533; 82550; 82803; 82947; 83605; 83735; 84100; 84145; 84295; 84300; 84439; 84443; 84484; 85025; 85027; 87040; 87086; 93005; 93010; 94660; 94760; 94762; 96365; 96365-59; 97110; 97162; 97165; 97530; 97535; 99285-25; A9270; C1751; C8929; J0612; J0696; J1815; J2405; J2765; J3010; J7030; J7040; J7060; J7512; Q9957

== ENCOUNTER 2024-09-26 22:02 | Inpatient (IN) | payer MEDICARE, OTHER ==
[~2024-09-26] VITALS: Ht 172.7 cm; Wt 110.0 kg
[~2024-09-26 22:02] MED LIST changes: +CARV3.125 PO; +Calcium Carbon500 MG PO; +ENTRESTO 24 MG1 EAC2 PO; +ENTRESTO 49 MG1 EAC7 PO; +EUTHYROX150 MC1 PO; +EUTHYROX175 MCG PO; +HUMIRA40 MG/0.2 SC; +HYDROCODONE-AC1 EAC7 PO; +INSULIN LI100 UNIT/5 SC; +OXYCONTIN10 MG PO; +Prednisone10 MG PO; +SEMGLEE (Y100 UNIT/1 SC; +VITAMIN D5000 UNIT PO
[2024-09-26 22:46] LABS: BASOPHILS PERCENT AUTO 1 % (0-2); EOSINOPHILS ABSOLUTE AUTO 0.24 K/mm3 (0.00-0.68); EOSINOPHILS PERCENT AUTO 2 % (0-6); Hematocrit 32.5 % (37.0-53.0); Hemoglobin 10.3 g/dL (13.5-17.5); IMMATURE GRAN ABSOLUTE AUTO 0.14 K/mm3 (0.00-0.10); IMMATURE GRAN PERCENT AUTO 1 % (0-1); LYMPHOCYTES ABSOLUTE AUTO 1.09 K/mm3 (0.84-5.20); LYMPHOCYTES PERCENT AUTO 7 % (21-46); MONOCYTES PERCENT AUTO 5 % (4-13); Mean Corpuscular HGB 29.7 pg (26.0-34.0); Mean Corpuscular HGB Conc 31.7 g/dL (31.5-36.5); Mean Corpuscular Volume 94 fL (80-100); Mean Platelet Volume 9.6 fL (9.1-12.4); NEUTROPHILS ABSOLUTE AUTO 12.74 K/mm3 (1.96-9.15); NEUTROPHILS PERCENT AUTO 85 % (41-73); Platelet Count 322 K/mm3 (150-400); RDW Coefficient Variation 16.8 % (11.7-14.2); RDW Standard Deviation 57.1 fL (35.1-46.3); Red Blood Cell Count 3.47 M/mm3 (4.30-5.90); White Blood Cell Count 15.01 K/mm3 (4.00-11.30)
[2024-09-26] MEDS ORDERED: Ketorolac Tromethamine 15mg Vial IV ONE (22:55)
[2024-09-26 23:18] LABS: Albumin, Blood 2.5 g/dL (3.4-5.0); Albumin/Globulin Ratio 0.5 (0.8-1.8); Bilirubin, Total 0.9 mg/dL (0.1-1.0); Bun/Creatinine Ratio 11.5 (12.0-20.0); Calcium, Blood 8.1 mg/dL (8.5-10.1); Creatinine, Blood 0.96 mg/dL (0.60-1.20); Free Thyroxine 1.77 ng/dL (0.70-1.60); Globulin, Blood 4.7 g/dL (2.2-4.0); Magnesium, Blood 1.3 mg/dL (1.6-2.4); Thyroid Stimulating Hormone 2.26 uIU/mL (0.360-4.800); Total Protein, Blood 7.2 g/dL (6.4-8.2)
[2024-09-26] MEDS ORDERED: Acetaminophen 325 MG TABLET PO ONE (23:25)
[2024-09-27] MEDS ORDERED: Furosemide 10 MG/ML 4ML Vial IV ONE (00:20)
[2024-09-27] MEDS ORDERED: Diltiazem HCl 5 MG / ML 5ML Vial IV ONE (00:25)
[2024-09-27 00:37] LABS: Influenza A, PCR NEGATIVE (NEGATIVE); Influenza B, PCR NEGATIVE (NEGATIVE); Resp Syncytial Virus, PCR NEGATIVE (NEGATIVE); SARS-Cov-2 (COVID-19) PCR, MMC NEGATIVE (NEGATIVE)
[2024-09-27] MEDS ORDERED: Magnesium Hydroxide Conc 10 ML UDC PO PRN (03:10)
[2024-09-27] MEDS ORDERED: Acetaminophen 325 MG TABLET PO PRN (03:10)
[2024-09-27] MEDS ORDERED: FLU VACC TS2024-25(6MOS UP)/PF 45 MCG/0.5 ML SYRINGE IM ONE (03:15)
[2024-09-27] MEDS ORDERED: Magnesium Sulf 2 GM/Water 50ML 50 ML IV ONE (03:20)
[2024-09-27] MEDS ORDERED: Ampicillin Sod/Sulbactam Sod 3 GM in NS 100 ML IV SCH (03:45)
[2024-09-27] MEDS ORDERED: Azithromycin 500 MG in NS 250 ML IV SCH (03:48)
[2024-09-27] MEDS ORDERED: Midodrine 5 MG Tab PO SCH (04:00)
[2024-09-27] MEDS ORDERED: Rivaroxaban 10 MG Tab PO SCH (04:00)
[2024-09-27] MEDS ORDERED: Vancomycin HCL 2,500 MG in NS 500 ML IV ONE (04:00)
[2024-09-27] MEDS ORDERED: Carvedilol 3.125 MG Tab PO SCH (04:00)
[2024-09-27] MEDS ORDERED: HYDROcodone 10-APAP 325 TAB PO PRN (04:10)
[2024-09-27] MEDS ORDERED: OxyCODONE HCL 10 MG TABCR PO PRN (04:10)
[2024-09-27 07:20] LABS: Source, Urine Clean Catch
[2024-09-27 07:21] LABS: BASOPHILS ABSOLUTE AUTO 0.11 K/mm3 (0.00-0.23); BASOPHILS PERCENT AUTO 1 % (0-2); EOSINOPHILS ABSOLUTE AUTO 0.08 K/mm3 (0.00-0.68); EOSINOPHILS PERCENT AUTO 0 % (0-6); Hematocrit 29.2 % (37.0-53.0); Hemoglobin 9.6 g/dL (13.5-17.5); IMMATURE GRAN ABSOLUTE AUTO 0.48 K/mm3 (0.00-0.10); IMMATURE GRAN PERCENT AUTO 3 % (0-1); LYMPHOCYTES ABSOLUTE AUTO 1.93 K/mm3 (0.84-5.20); LYMPHOCYTES PERCENT AUTO 11 % (21-46); MONOCYTES ABSOLUTE AUTO 1.06 K/mm3 (0.16-1.47); MONOCYTES PERCENT AUTO 6 % (4-13); Mean Corpuscular HGB 30.6 pg (26.0-34.0); Mean Corpuscular HGB Conc 32.9 g/dL (31.5-36.5); Mean Corpuscular Volume 93 fL (80-100); Mean Platelet Volume 9.6 fL (9.1-12.4); NEUTROPHILS ABSOLUTE AUTO 14.73 K/mm3 (1.96-9.15); NEUTROPHILS PERCENT AUTO 80 % (41-73); Platelet Count 290 K/mm3 (150-400); RDW Standard Deviation 56.9 fL (35.1-46.3); Red Blood Cell Count 3.14 M/mm3 (4.30-5.90); White Blood Cell Count 18.39 K/mm3 (4.00-11.30)
[2024-09-27 07:39] LABS: Appearance, Urine Clear (Clear); Bilirubin, Urine Neg (Neg); Blood, Urine Neg (Neg); Color, Urine Yellow (P-Yellow); Glucose Qualitative, Urine Neg (Neg); Ketones, Urine Neg (Neg); Leukocyte Esterase, Urine Neg (Neg); Nitrite, Urine Neg (Neg); Protein, Urine 4+ (Neg); Specific Gravity, Urine 1.015 (1.003-1.022); Urobilinogen, Urine NORM (Normal)
[2024-09-27 07:47] LABS: Albumin, Blood 2.3 g/dL (3.4-5.0); Albumin/Globulin Ratio 0.5 (0.8-1.8); Amorphous Light (0-Heavy); Bacteria Rare /hpf; Bun/Creatinine Ratio 11.1 (12.0-20.0); Calcium, Blood 8.1 mg/dL (8.5-10.1); Creatinine, Blood 1.17 mg/dL (0.60-1.20); Globulin, Blood 4.8 g/dL (2.2-4.0); Magnesium, Blood 1.8 mg/dL (1.6-2.4); Potassium, Blood 4.1 mmol/L (3.5-5.5); Red Blood Cells, Urine 0-2 /hpf (0-2); Squamous Epithelial Cells Rare /hpf (Few); Total Protein, Blood 7.1 g/dL (6.4-8.2); White Blood Cells, Urine 0-2 /hpf (0-5)
[2024-09-27] MEDS ORDERED: OxyCODONE HCL 10 MG TABCR PO SCH (09:00)
[2024-09-27] MEDS ORDERED: Furosemide 10 MG/ML 4ML Vial IV SCH (09:00)
[2024-09-27] MEDS ORDERED: Metoprolol Tartrate 25 MG Tab PO SCH (13:00)
[2024-09-27] MEDS ORDERED: Clopidogrel Bisulfate 75 MG Tab PO SCH (13:00)
[2024-09-27] MEDS ORDERED: Gabapentin 300 MG Cap PO SCH (13:00)
[2024-09-27] MEDS ORDERED: FURO40 PO (15:49)
[2024-09-27 15:53] VITALS: BP 116/80
[2024-09-27] MEDS ORDERED: Calcium Carbonate 500 MG Tab Chew PO PRN (15:55)
[2024-09-27] MEDS ORDERED: Albuterol 2.5 MG/3 ML VIAL INH PRN (15:55)
[2024-09-27] MEDS ORDERED: Diclofenac Sodium 100 GM TUBE TOP PRN (16:05)
[2024-09-27] MEDS ORDERED: Mag Sulfate 1 GM/D5% 100ML 100 ML IV STA (16:06)
[2024-09-27] MEDS ORDERED: Insulin Human Lispro 100 Units/ML 3ML Syringe SC SCH (16:30)
[2024-09-27] MEDS ORDERED: Metoprolol Tartrate 1 MG/ML 5 ML VIAL IV PRN (16:45)
--- NOTE | 2024-09-27 16:50 | NUR ---
UPDATE DR. MAE CALLED AND NOTIFIED OF WOUNDS TO COCCYX AND HEELS. FOAM BOOTS APPLIED TO BILATERAL HEELS. FOAM DRESSING APPLIED TO COCCYX.
--- NOTE | 2024-09-27 18:03 | NUR ---
SHIFT SUMMARY PT REMAINS ALERT AND ORIENTED. BP STABLE. HR REMAINS AFIB 80-90'S SINCE ADMISSION TO UNIT. O2 SATS HAVE REMAINED ABOVE 90% ON RA. HOME CPAP IN THE ROOM AND SET UP BY RT. PT PROVIDED BED BATH UPON ARRIVAL TO UNIT. PT FLOATED ON MULTIPLE PILLOES. EGG CRATE PLACED ON MATTRESS. FOAM BOOTIES APPLIED TO HEALS. PT REPOSITIONED Q2H. PT INCONTINENT OF URINE THIS AFTERNOON AND PUREWICK APPLIED. SPOUSE AT BEDSIDE. WILL REPORT OFF TO ONCOMING VENESSA
[2024-09-27 19:40] VITALS: BP 118/91
[2024-09-27] MEDS ORDERED: Sacubitril/Valsartan 24 MG-26 MG Tab PO SCH (21:00)
[2024-09-27] MEDS ORDERED: oxyBUTYnin chloride 5 MG TAB PO SCH (21:00)
[2024-09-27] MEDS ORDERED: Memantine HCL 5 MG Tab PO SCH (21:00)
[2024-09-27] MEDS ORDERED: Miconazole Nitrate 2% 85 GM PWD TOP SCH (21:00)
[2024-09-27] MEDS ORDERED: Hydroxychloroquine Sulfate 200 MG Tab PO SCH (21:00)
[2024-09-27] MEDS ORDERED: rOPINIRole HCl 0.25 MG Tab PO SCH (21:00)
[2024-09-27] MEDS ORDERED: Miconazole Nitrate 2% 43 GM PWD TOP SCH (21:00)
[2024-09-27] MEDS ORDERED: Lactobacil 2-S.Thermo-Bifido 1 1 Cap PO SCH (21:00)
[2024-09-28 00:09] VITALS: BP 118/86
[2024-09-28 04:21] VITALS: BP 115/83
[2024-09-28 04:50] LABS: BASOPHILS ABSOLUTE AUTO 0.06 K/mm3 (0.00-0.23); BASOPHILS PERCENT AUTO 1 % (0-2); EOSINOPHILS ABSOLUTE AUTO 0.69 K/mm3 (0.00-0.68); EOSINOPHILS PERCENT AUTO 6 % (0-6); Hematocrit 27.3 % (37.0-53.0); Hemoglobin 8.9 g/dL (13.5-17.5); IMMATURE GRAN ABSOLUTE AUTO 0.14 K/mm3 (0.00-0.10); IMMATURE GRAN PERCENT AUTO 1 % (0-1); LYMPHOCYTES ABSOLUTE AUTO 1.45 K/mm3 (0.84-5.20); LYMPHOCYTES PERCENT AUTO 12 % (21-46); MONOCYTES ABSOLUTE AUTO 0.79 K/mm3 (0.16-1.47); MONOCYTES PERCENT AUTO 6 % (4-13); Mean Corpuscular HGB 30.4 pg (26.0-34.0); Mean Corpuscular HGB Conc 32.6 g/dL (31.5-36.5); Mean Corpuscular Volume 93 fL (80-100); NEUTROPHILS ABSOLUTE AUTO 9.26 K/mm3 (1.96-9.15); NEUTROPHILS PERCENT AUTO 75 % (41-73); Platelet Count 253 K/mm3 (150-400); RDW Coefficient Variation 17.3 % (11.7-14.2); RDW Standard Deviation 58.5 fL (35.1-46.3); Red Blood Cell Count 2.93 M/mm3 (4.30-5.90); White Blood Cell Count 12.39 K/mm3 (4.00-11.30)
[2024-09-28 05:20] LABS: Albumin, Blood 2.2 g/dL (3.4-5.0); Albumin/Globulin Ratio 0.5 (0.8-1.8); Bilirubin, Total 0.8 mg/dL (0.1-1.0); Calcium, Blood 7.9 mg/dL (8.5-10.1); Creatinine, Blood 1.07 mg/dL (0.60-1.20); Globulin, Blood 4.5 g/dL (2.2-4.0); Potassium, Blood 3.5 mmol/L (3.5-5.5); Total Protein, Blood 6.7 g/dL (6.4-8.2)
--- NOTE | 2024-09-28 05:51 | NUR ---
SHIFT SUMMARY PT REMAINS A&OX4. ON TELE AFIB 90-100s. VSS ON RA WITH CPAP PLACED HS. PT ATTACHED TO MALE PW THROUGHOUT NIGHT FOR EASE, URINE OUTPUT REMAINS ADEQUATE. ABX GIVEN PER NOV. NORCO GIVEN TO PT UPON REQUEST FOR 8/10 PAIN. GIVEN WITH GOOD EFFECT. PTs AT BEDSIDE. NO FURTHER QUESTIONS OR CONCERNS AT THIS TIME. CALL SAAVEDRA WITHIN REACH. WILL REPORT TO ONCOMING NURSE.
[2024-09-28] MEDS ORDERED: Levothyroxine Sodium 0.075 MG Tab PO SCH (06:00)
[2024-09-28] MEDS ORDERED: Mag Sulfate 1 GM/D5% 100ML 100 ML IV STA (06:35)
[2024-09-28 08:37] VITALS: BP 119/74
[2024-09-28] MEDS ORDERED: Atorvastatin 40 MG Tab PO SCH (09:00)
[2024-09-28] MEDS ORDERED: Insulin Glargine-Yfgn 100 Unit/mL 3 ML SYR SC SCH ×2 (09:00)
[2024-09-28 11:10] VITALS: BP 122/83
[2024-09-28] MEDS ORDERED: Metoprolol Succinate 50 MG TABCR PO SCH (12:00)
[2024-09-28] MEDS ORDERED: Empagliflozin 10 MG TAB PO SCH (13:00)
[2024-09-28 15:17] VITALS: BP 122/80
[2024-09-28] MEDS ORDERED: Cholecalciferol 1000 Unit Tablet (=25MCG) PO SCH (15:55)
[2024-09-28] MEDS ORDERED: Furosemide 10 MG/ML 4ML Vial IV SCH (18:00)
--- NOTE | 2024-09-28 18:35 | NUR ---
SHIFT SUMMARY PT REMAINS ALERT AND ORIENTED. BP STABLE. HR REMAINS AFIB 90'S. O2 SATS REMAIN ABOVE 90% ON RA. PT USED HOME CPAP AT TIMES WHILE HE NAPPED THIS SHIFT. PT COMPLAINS OF CHRONIC PAIN AT TIMES, BUT MEDICATED PER EMAR. PT UP TO SHOWER THIS SHIFT. PT VOIDING WITH PUREWICK DEVICE. SPOUSE AT BEDSIDE ALL SHIFT. WILL REPORT TO HEAD OF DESIGN RN
[2024-09-28 19:26] VITALS: BP 103/70
[2024-09-29 00:19] VITALS: BP 116/79
[2024-09-29 04:01] VITALS: BP 126/82
[2024-09-29 04:07] LABS: BASOPHILS ABSOLUTE AUTO 0.06 K/mm3 (0.00-0.23); BASOPHILS PERCENT AUTO 1 % (0-2); EOSINOPHILS PERCENT AUTO 8 % (0-6); Hematocrit 25.6 % (37.0-53.0); Hemoglobin 8.3 g/dL (13.5-17.5); IMMATURE GRAN ABSOLUTE AUTO 0.09 K/mm3 (0.00-0.10); IMMATURE GRAN PERCENT AUTO 1 % (0-1); LYMPHOCYTES ABSOLUTE AUTO 1.73 K/mm3 (0.84-5.20); LYMPHOCYTES PERCENT AUTO 18 % (21-46); MONOCYTES ABSOLUTE AUTO 0.64 K/mm3 (0.16-1.47); MONOCYTES PERCENT AUTO 7 % (4-13); Mean Corpuscular HGB 29.9 pg (26.0-34.0); Mean Corpuscular HGB Conc 32.4 g/dL (31.5-36.5); Mean Corpuscular Volume 92 fL (80-100); Mean Platelet Volume 9.4 fL (9.1-12.4); NEUTROPHILS PERCENT AUTO 66 % (41-73); Platelet Count 243 K/mm3 (150-400); RDW Coefficient Variation 17.2 % (11.7-14.2); RDW Standard Deviation 57.7 fL (35.1-46.3); Red Blood Cell Count 2.78 M/mm3 (4.30-5.90); White Blood Cell Count 9.62 K/mm3 (4.00-11.30)
[2024-09-29 04:22] LABS: Albumin, Blood 2.1 g/dL (3.4-5.0); Albumin/Globulin Ratio 0.5 (0.8-1.8); Bilirubin, Total 0.8 mg/dL (0.1-1.0); Calcium, Blood 7.8 mg/dL (8.5-10.1); Globulin, Blood 4.3 g/dL (2.2-4.0); Potassium, Blood 3.4 mmol/L (3.5-5.5); Total Protein, Blood 6.4 g/dL (6.4-8.2)
--- NOTE | 2024-09-29 04:58 | NUR ---
SHIFT SUMMARY A&OX4. VSS ON RA, CPAP HS. NO ACUTE CHANGES OVERNIGHT. PT REPORTING 8/10 PAIN BEFORE BED, NORCO GIVEN WITH GOOD RELIEF. PT USING MALE PUREWICK AND OUTPUTTING ADEQUATELY WITH CLEAR YELLOW URINE. ABX GIVEN PER NOV. NO FURTHER QUESITONS OR CONCERNS AT THIS TIME. WILL REPORT TO ONCOMING NURSE.
[2024-09-29 07:36] VITALS: BP 117/95
--- NOTE | 2024-09-29 07:50 | NUR ---
ASSUMPTION NOTE: THIS RN TO ASSUME CARE OF PATIENT. PATIENT IS SITTING AT EDGE OF BED AND VITAL SIGNS TAKEN. VITAL SIGNS STABLE AND AT BEDSIDE. PATIENT STATES HE IS NOT IN ANY PAIN. PATIENT HAS BED AT LOWEST POSITION AND CALL LIGHT WITHIN REACH.
[2024-09-29] MEDS ORDERED: Potassium Chloride 20 MEQ TabCR PO ONE (08:00)
[2024-09-29] MEDS ORDERED: Spironolactone 12.5 MG TAB PO SCH (09:00)
[2024-09-29 11:54] VITALS: BP 101/88
[2024-09-29 15:53] VITALS: BP 121/82
--- NOTE | 2024-09-29 16:48 | NUR ---
SHIFT SUMMARY: PATIENT IS ALERT AND ORIETNED X4 AND ACTIVE IN HIS CARE. ON TELE SHWOIGN AFIB WITH RATE 90. SATTING >92% ON ROOM AIR, EVEN AND UNLABORED RESPIRATIONS AT REST. PATIENT WEARS CPAP MACHINE WHEN SLEEPING & RESTING. DID NEED COVERAGE FOR BLOOD SUGARS THROUHGOUT SHIFT. WAS ABLE TO USE BEDSIDE COMMODE AND PUREWICK IS DRAINING. BED BATH WAS GIVEN AND PATIENT IS A 1 PERSON ASSIST WITH GAIT BELT & FRONT WHEELED WALKER. PLAN WILL BE TO CONTINUE DIURETICS AND PATIENT WILL DISCHARGE WITH A COUPLE MORE DAYS. PATIENT IS MEDICAL WITH TELE STATUS. THIS RN WILL CONTINUE TO MONITOR UNITL SHIFT CHANE AND NIGHT RN TAKES OVER CARE.
--- NOTE | 2024-09-29 16:52 | NUR ---
Spiritual care visit conducted. Pt was awake and alert but transfixed by his mobile phone. Pt's spouse was conversationally and spoke on his behalf for the duration of the visit. Spiritual assessment conducted. Pt's spouse described a broad viewpoint rooted in indigenous beliefs. Pt's spouse described equanimity with nature and creation and was not averse to terms such as "god" or "prayer." Life review conducted, indicating a deep connection to the local area. Pt feels supported by both friends and family. Pt's spouse displays a postive and optimistic headspace in relation to spouse's current condition and medical history involving frequent admits to the hospital. Both pt and pt's spouse report being satisfied with their experience at the hospital on numerous occasions and feel that they are receiving helpful care. Pt's spouse requested prayer and we formed a prayer ugashik. Pt's spouse and pt responded positively to the prayer and thanked me for the visit. Both pt and pt's spouse appeared lifted by the visit.
--- NOTE | 2024-09-29 18:43 | NUR ---
TRANSFER NOTE: PATIENT IS ALERT AN ORIENTED X4 AND ACTIVE IN HIS CARE. PATIENT WAS TRANSFFERED VIA BED WITH ALL PERSONAL BELONGINGS AND ACCOMPANYING HIM. PATIENT IS SATTING >92% ON ROOM AIR AND WEARS HIS CPAP MACHINE WHEN SLEEPING. IS ON TELE SHOWING AFIB WITH RATE 90-100. DOES TACH UP TO 130-140 WHEN GETTING UP TO USE THE BEDSIDE COMMODE OR GO TO THE BATHROOM. PATIENT IS 1 PERSON ASSIST WITH FRONT WHEELED WALKER AND GAIT BELT. ASSUMING RN SHIRLEY WAS NOTIFED AND REPORT WAS GIVEN.
--- NOTE | 2024-09-29 18:55 | NUR ---
PT TRANSFERED FROM [facility]. REPORT RECIEVED FROM RASHAD CLIFFORD. PT'S AT BEDSIDE.
[2024-09-29 20:00] VITALS: BP 121/80
[2024-09-29] MEDS ORDERED: NS 250 ML IV PRN (23:00)
--- NOTE | 2024-09-30 04:03 | NUR ---
SHIFT SUMMARY TRANSFERED FROM PCU AT SHIFT CHANGE. HANDOFF GIVEN TO AM NURSE, WHO GAVE REPORT TO ME. ADMITTED FOR CHF AND SEPTIC SHOCK (UTI VS. PNEUMONIA). ANTIB RX ARE SCHEDULED. DIURESING. TELEMETRY: AFIB @ 96 BPM. BLE EDEMA 2+. HE IS ON A MALE PUREWICK SYSTEM. ON RA @ HOME. ADA. ACHS - LOW SS. CPAP @ HS. PHYSICAL THERAPY IS ASSISTING WITH THIS PATIENT.
[2024-09-30 05:01] VITALS: BP 126/87
[2024-09-30 06:09] LABS: BASOPHILS ABSOLUTE AUTO 0.09 K/mm3 (0.00-0.23); BASOPHILS PERCENT AUTO 1 % (0-2); EOSINOPHILS ABSOLUTE AUTO 0.57 K/mm3 (0.00-0.68); EOSINOPHILS PERCENT AUTO 7 % (0-6); Hematocrit 27.9 % (37.0-53.0); Hemoglobin 8.9 g/dL (13.5-17.5); IMMATURE GRAN ABSOLUTE AUTO 0.09 K/mm3 (0.00-0.10); IMMATURE GRAN PERCENT AUTO 1 % (0-1); LYMPHOCYTES ABSOLUTE AUTO 1.87 K/mm3 (0.84-5.20); LYMPHOCYTES PERCENT AUTO 22 % (21-46); MONOCYTES ABSOLUTE AUTO 0.89 K/mm3 (0.16-1.47); MONOCYTES PERCENT AUTO 10 % (4-13); Mean Corpuscular HGB 29.8 pg (26.0-34.0); Mean Corpuscular HGB Conc 31.9 g/dL (31.5-36.5); Mean Corpuscular Volume 93 fL (80-100); Mean Platelet Volume 9.9 fL (9.1-12.4); NEUTROPHILS ABSOLUTE AUTO 5.05 K/mm3 (1.96-9.15); NEUTROPHILS PERCENT AUTO 59 % (41-73); Platelet Count 281 K/mm3 (150-400); RDW Coefficient Variation 17.1 % (11.7-14.2); Red Blood Cell Count 2.99 M/mm3 (4.30-5.90); White Blood Cell Count 8.56 K/mm3 (4.00-11.30)
[2024-09-30 06:31] LABS: Albumin/Globulin Ratio 0.4 (0.8-1.8); Bilirubin, Total 0.7 mg/dL (0.1-1.0); Bun/Creatinine Ratio 11.3 (12.0-20.0); Calcium, Blood 8.3 mg/dL (8.5-10.1); Creatinine, Blood 1.15 mg/dL (0.60-1.20); Globulin, Blood 4.5 g/dL (2.2-4.0); Potassium, Blood 3.5 mmol/L (3.5-5.5); Total Protein, Blood 6.5 g/dL (6.4-8.2)
[2024-09-30] MEDS ORDERED: Magnesium Sulf 2 GM/Water 50ML 50 ML IV ONE (07:55)
[2024-09-30] MEDS ORDERED: Potassium Chloride 20 MEQ TabCR PO ONE ×2 (08:00→13:20)
[2024-09-30] MEDS ORDERED: Amoxicillin/Clavulanate K 875 MG Tab PO SCH (09:00)
--- NOTE | 2024-09-30 12:51 | NUR ---
JODI FROM [facility] THER[facility]Y IN TO VISIT PATIENT. PATIENT AND SPOUSE HAPPY WITH VISIT.
[2024-09-30] MEDS ORDERED: AMOCLA875 PO (14:37)
[2024-09-30] MEDS ORDERED: JARDIANCE10 MG PO (14:38)
[2024-09-30] MEDS ORDERED: AZIT250 PO (14:38)
[2024-09-30] MEDS ORDERED: MICONAZOLE NITR85 GM TOP (14:41)
[2024-09-30] MEDS ORDERED: ONDA4 PO (14:42)
[2024-09-30] MEDS ORDERED: TORSE20 PO ×2 (14:43→14:44)
[2024-09-30] MEDS ORDERED: METO50ER PO (14:47)
--- NOTE | 2024-09-30 15:59 | NUR ---
Spiritual care visit conducted. Pt is asleep. Pt's spouse appears downcast and less energetic than during previous visit. Pt spouse reports a difficult night involving disagreements with staff and combative behavior towards her and pt. Provided compassionate and empathetic listening to pt's spouse. Life review conducted. Pt's spouse is encouraged by her great grandchildren and family support. Spiritual assessment conducted. In difficult times, pt's spouse relies on "lots of prayers." Pt awoke from machine beeping. Pt was groggy and attempted to make conversation while in and out of consciousness. Pt's spouse expects a discharge tonight. Prayer offered. Pt's spouse was grateful for the prayer and appears uplifted by the visit. Pt's spouse claims she felt positive about the visits and will "look me up" if pt is readmitted in the future.
--- NOTE | 2024-09-30 17:30 | NUR ---
SHIFT SUMMARY PATIENT AND UPSET THIS MORNING. VERBALIZING TO DR WILSON CONCERNS. CUSTOMER RECOVERY DONE AND PROPERTY ASSISTANT NOTIFIED. STATING THAT SHE ONLY LIKES BEING IN PCU. REQUESTING TO GO BACK TO PCU. DR WILSON DISCUSSED PLAN WITH FAMILY AND PLAN TO DISCHARGE. FAMILY AND PATIENT REFUSING REHAB. PATIENT ABLE TO GET UP TO BEDSIDE WITH MINIMAL ASSIST AND ABLE TO AMBULATE SHORT DISTANCES WITH WALKER AND ASSISTANCE. REVIEWED DISCHARGE ORDERS WITH AND PATIENT. IVS DC'D, TELE REMOVED. PATIENT TAKEN OUT VIA WHEELCHAIR. BELONGINGS SENT HOME WITH PATIENT.
[2024-10-01] MEDS ORDERED: Azithromycin 250 MG Tab PO SCH (09:00)
== END 2024-09-30 17:56 | disposition home or self-care (01) | DRG 871 ==
LOC: ER 22:02 → PCU 22:03 → ERHOLD 22:03 → PCU 09-27 15:25 → MEDS 09-29 18:52
PROVIDERS: Hospitalist; Student in an Organized Health Care Education/Training Program; ADMIT Student in an Organized Health Care Education/Training Program
DX: A41.9 Sepsis, unspecified organism (principal); I21.A1 Myocardial infarction type 2; J96.01 Acute respiratory failure with hypoxia; I50.23 Acute on chronic systolic (congestive) heart failure; I48.19 Other persistent atrial fibrillation; Z28.82 Immunization not carried out because of caregiver refusal; I11.0 Hypertensive heart disease with heart failure; L89.621 Pressure ulcer of left heel, stage 1; L89.611 Pressure ulcer of right heel, stage 1; E66.9 Obesity, unspecified; I25.10 Atherosclerotic heart disease of native coronary artery without angina pectoris; M06.9 Rheumatoid arthritis, unspecified; E83.42 Hypomagnesemia; E03.9 Hypothyroidism, unspecified; E11.9 Type 2 diabetes mellitus without complications; L30.4 Erythema intertrigo; G47.33 Obstructive sleep apnea (adult) (pediatric); K59.00 Constipation, unspecified; E78.5 Hyperlipidemia, unspecified; E87.6 Hypokalemia; Z91.041 Radiographic dye allergy status; Z88.1 Allergy status to other antibiotic agents; Z88.8 Allergy status to other drugs, medicaments and biological substances; Z79.01 Long term (current) use of anticoagulants; Z79.899 Other long term (current) drug therapy; Z79.02 Long term (current) use of antithrombotics/antiplatelets; Z79.890 Hormone replacement therapy; Z90.49 Acquired absence of other specified parts of digestive tract; Z95.5 Presence of coronary angioplasty implant and graft; Z87.891 Personal history of nicotine dependence
CPT/HCPCS: 0241U; 36415; 51798; 71045; 80053; 81001; 82947; 83615; 83735; 83880; 84145; 84439; 84443; 84484; 85025; 87040; 93005; 93010; 94762; 96374; 96375; 97110; 97112; 97161; 99285-25; A9270; J0282; J0295; J0456; J1815; J1885; J1940; J3370; J3475; J7040; J7050; J7060

== ENCOUNTER 2025-07-27 01:52 | Day surgery (SDC) | payer MEDICARE, OTHER ==
[~2025-07-27 01:52] MED LIST changes: +AZIT250 PO; +JARDIANCE10 MG PO; +METO50ER PO; +MICONAZOLE NITR85 GM TOP; +ONDA4 PO; +TORSE20 PO
[2025-07-27] MEDS ORDERED: Abatacept/Maltose 750 MG in NS 100 ML IV SCH (06:00)
[2025-07-27 14:44] VITALS: BP 105/73
[2025-07-27 15:37] LABS: Source, Urine Clean Catch
[2025-07-27 15:56] LABS: Bilirubin, Urine Neg (Neg); Color, Urine Yellow (P-Yellow); Glucose Qualitative, Urine Neg (Neg); Ketones, Urine Neg (Neg); Leukocyte Esterase, Urine Neg (Neg); Protein, Urine 1+ (Neg); Specific Gravity, Urine 1.015 (1.003-1.022); Urobilinogen, Urine NORM (Normal)
[2025-07-27 15:59] LABS: BASOPHILS ABSOLUTE AUTO 0.11 K/mm3 (0.00-0.23); BASOPHILS PERCENT AUTO 1 % (0-2); EOSINOPHILS ABSOLUTE AUTO 0.96 K/mm3 (0.00-0.68); EOSINOPHILS PERCENT AUTO 9 % (0-6); Hematocrit 35.8 % (37.0-53.0); Hemoglobin 11.4 g/dL (13.5-17.5); IMMATURE GRAN ABSOLUTE AUTO 0.07 K/mm3 (0.00-0.10); IMMATURE GRAN PERCENT AUTO 1 % (0-1); LYMPHOCYTES ABSOLUTE AUTO 2.25 K/mm3 (0.84-5.20); LYMPHOCYTES PERCENT AUTO 22 % (21-46); MONOCYTES ABSOLUTE AUTO 0.68 K/mm3 (0.16-1.47); MONOCYTES PERCENT AUTO 7 % (4-13); Mean Corpuscular HGB Conc 31.8 g/dL (31.5-36.5); Mean Corpuscular Volume 93 fL (80-100); NEUTROPHILS ABSOLUTE AUTO 6.29 K/mm3 (1.96-9.15); NEUTROPHILS PERCENT AUTO 61 % (41-73); NRBC ABSOLUTE 0.00 K/mm3 (0.00-0.02); NRBC Auto 0.0 /100 WBC (0.0-0.2); Platelet Count 323 K/mm3 (150-400); RDW Coefficient Variation 14.6 % (11.7-14.2); RDW Standard Deviation 50.3 fL (35.1-46.3)
[2025-07-27 16:20] LABS: C-REACTIVE PROTEIN, EXT RANGE 1.410 mg/dL (0.000-0.300); Total Iron Binding Capacity 205 ug/dL (250-450)
[2025-07-27 16:23] LABS: Alanine Aminotransfer (ALT/SGP 18 U/L (12-78); Albumin, Blood 3.0 g/dL (3.4-5.0); Albumin/Globulin Ratio 0.7 (0.8-1.8); Anion Gap 11 mmol/L (3-11); Aspartate Aminotrans (AST/SGOT 16 U/L (12-37); Bilirubin, Total 0.4 mg/dL (0.1-1.0); Blood Urea Nitrogen 34 mg/dL (8-24); CO2, Blood 24 mmol/L (21-32); Calcium, Blood 8.6 mg/dL (8.5-10.1); Chloride, Blood 106 mmol/L (98-108); Creatinine, Blood 1.56 mg/dL (0.60-1.20); Ferritin, Serum 140 ng/mL (26-388); Globulin, Blood 4.3 g/dL (2.2-4.0); Glucose, Blood 132 mg/dL (70-99); Phosphorus, Blood 3.3 mg/dL (2.5-4.9); Potassium, Blood 3.9 mmol/L (3.5-5.5); Sodium, Blood 137 mmol/L (136-145); Total Protein, Blood 7.3 g/dL (6.4-8.2)
[2025-07-27 16:55] LABS: Creatinine, Urine Random 65.7 mg/dL (27.00-270.00); Protein, Urine Random 24.8 mg/dL (0.0-11.9); Protein/Creat Ratio, Ur Random 0.4
== END 2025-07-27 15:30 | disposition home or self-care (01) ==
LOC: ATC 01:52
PROVIDERS: Hospitalist; Internal Medicine Rheumatology
DX: M05.79 Rheumatoid arthritis with rheumatoid factor of multiple sites without organ or systems involvement (principal); I25.10 Atherosclerotic heart disease of native coronary artery without angina pectoris; I25.2 Old myocardial infarction; E11.22 Type 2 diabetes mellitus with diabetic chronic kidney disease; N18.9 Chronic kidney disease, unspecified; I50.22 Chronic systolic (congestive) heart failure; I48.19 Other persistent atrial fibrillation; E11.51 Type 2 diabetes mellitus with diabetic peripheral angiopathy without gangrene; J44.9 Chronic obstructive pulmonary disease, unspecified; G47.33 Obstructive sleep apnea (adult) (pediatric); Z87.891 Personal history of nicotine dependence; Z79.01 Long term (current) use of anticoagulants; Z79.02 Long term (current) use of antithrombotics/antiplatelets; Z79.4 Long term (current) use of insulin; Z95.5 Presence of coronary angioplasty implant and graft; Z79.899 Other long term (current) drug therapy
CPT/HCPCS: 36591; 80053; 82306; 82570; 82728; 83540; 83550; 84100; 84156; 85025; 86140; 96365; J0129-JA

== ENCOUNTER 2025-08-12 02:19 | Day surgery (SDC) | payer MEDICARE, OTHER ==
[2025-08-12] MEDS ORDERED: Abatacept/Maltose 750 MG in NS 100 ML IV SCH (06:00)
[2025-08-12 10:00] VITALS: BP 119/69
[2025-08-12 11:46] LABS: Alanine Aminotransfer (ALT/SGP 15.0 U/L (12-78); Albumin, Blood 2.8 g/dL (3.4-5.0); Albumin/Globulin Ratio 0.7 (0.8-1.8); Anion Gap 8.0 mmol/L (3-11); Aspartate Aminotrans (AST/SGOT 13.0 U/L (12-37); Bilirubin, Total 0.6 mg/dL (0.1-1.0); Blood Urea Nitrogen 26.0 mg/dL (8-24); CO2, Blood 23.0 mmol/L (21-32); Calcium, Blood 8.6 mg/dL (8.5-10.1); Chloride, Blood 107.0 mmol/L (98-108); Creatinine, Blood 1.23 mg/dL (0.60-1.20); Globulin, Blood 3.8 g/dL (2.2-4.0); Glucose, Blood 154.0 mg/dL (70-99); Potassium, Blood 4.3 mmol/L (3.5-5.5); Sodium, Blood 134.0 mmol/L (136-145); Thyroid Stimulating Hormone 1.01 uIU/mL (0.360-4.800); Total Protein, Blood 6.6 g/dL (6.4-8.2)
== END 2025-08-12 11:03 | disposition home or self-care (01) ==
LOC: ATC 02:19
PROVIDERS: Internal Medicine Endocrinology, Diabetes & Metabolism
DX: M05.79 Rheumatoid arthritis with rheumatoid factor of multiple sites without organ or systems involvement (principal); I25.10 Atherosclerotic heart disease of native coronary artery without angina pectoris; I50.20 Unspecified systolic (congestive) heart failure; E11.51 Type 2 diabetes mellitus with diabetic peripheral angiopathy without gangrene; J44.9 Chronic obstructive pulmonary disease, unspecified; I48.19 Other persistent atrial fibrillation; Z87.891 Personal history of nicotine dependence
CPT/HCPCS: 36591; 80053; 83036; 84443; 96413; 99211; J0129-JA